=== PATIENT | female | born 1965 | race Caucasian/White ===

== ENCOUNTER 2020-04-02 17:57 | Emergency (ER) | payer MEDICARE, MEDICAID, SELFPAY ==
[2020-04-02 18:07] VITALS: BP 114/67; PULSE 73; RESP 16; TEMP 37.5; O2SAT 100
--- NOTE | 2020-04-02 18:12 | ED.EAR ---
HPI - Ear Problem General Chief complaint: Ear Stated complaint: ear pain Time Seen by Provider: 04/02/20 18:12 Source: patient Mode of arrival: ambulatory Limitations: no limitations History of Present Illness HPI Narrative: Madina Reyes is a 55 yo female with PMH of bipolar disorder, high cholesterol, HTN, depression, panic attacks, who comes to express care with buzzing and pain to R ear since Sunday, no drainage, no cold symptoms. Related Data Home Medications Medication Instructions Recorded Confirmed aripiprazole 2 mg tablet 2 mg PO DAILY 12/08/19 12/08/19 aspirin 81 mg tablet,delayed 81 mg PO DAILY 12/08/19 12/08/19 release multivit with 1 tablet PO DAILY 12/08/19 12/08/19 aexfmwsz-bnuj-IQ-lutein 8 mg iron-400 mcg-300 mcg tablet paroxetine HCl 20 mg tablet 20 mg PO QAM 12/08/19 12/08/19 spironolactone 100 mg tablet 100 mg PO DAILY 12/08/19 12/08/19 [facility] Hair, Skin, Nails Formula 04/02/20 [facility] Womans Ultra Jamie Multivitamin 04/02/20 ascorbic acid (vitamin C) [Vitamin 04/02/20 C] metformin 500 mg PO BID 04/02/20 04/02/20 Allergies Allergy/AdvReac Type Severity Reaction Status Date / Time ciprofloxacin Allergy Unknown Unknown Verified 10/15/19 18:03 Penicillins Allergy Unknown Unknown Verified 10/15/19 18:03 Review of Systems Review of Systems: Narrative: CONSTITUTIONAL: Denies fever, chills, sweats. EYES: Denies visual changes, redness, discharge. ENT: Denies rhinorrhea, congestion, sore throat, right otalgia and buzzing in ear. CARDIOVASCULAR: Denies chest pain, palpitations, edema. RESPIRATORY: Denies dyspnea, wheezing, cough GASTROINTESTINAL: Denies abdominal pain, nausea, vomiting, diarrhea. GENITOURINARY: Denies dysuria, hematuria, abnormal discharge SKIN: Denies rash or itching. NEUROLOGIC: Denies numbness, or focal weakness. PSYCHIATRIC: Denies anxiety or depression. [facility] Past Medical History Medical History Anxiety Arthritis Bipolar disorder Endometriosis Hyperlipidemia Joint pain Migraines Rectal cancer with radiation therapy and chemotherapy Surgical History Surgical History H/O total hysterectomy Hx of tubal ligation Family History Family History Grandparent Family history of premature coronary heart disease Mother Patient's mother is Family history of malignant neoplasm of breast in first degree relative Social History Social History Smoking status: Never smoker Second hand tobacco smoke exposure: No Alcohol intake: current Comments At time of signature, I agree with nursing past medical, surgical, social and family history. There is no relevant family history pertinent to the presenting complaint. Exam Narrative: Exam Narrative: GENERAL: This is a well-nourished, well-developed patient, in mild distress. HEAD: normocephalic, atraumatic. EYES:. Sclera clear/white. Vision is grossly intact. EARS: External ears normal, auditory canals clear on L and redness of canal on R. without drainage, R TMs bulging. Hearing grossly intact. NOSE: External nose normal without nasal discharge, nares without redness, no rhinorrhea. THROAT: Mucous membranes moist, posterior pharynx pink moist NECK: Neck supple, CARDIOVASCULAR: Regular rate and rhythm without murmurs, gallops, or rubs. RESPIRATORY: Clear to auscultation. Breath sounds equal bilaterally. No wheezes, rales, or rhonchi. GASTROINTESTINAL: Abdomen soft, SKIN: warm, intact with no suspicious lesions or rash, good texture and turgor. NEURO: awake, alert, and oriented to person, place and time. There were no obvious focal neurologic abnormalities. Steady gait EXTREMITIES: Normal range of motion. BACK: Nontender without deformity Course Course Emergency Course: St
== END 2020-04-02 18:36 | disposition home or self-care (01) ==
PROVIDERS: Emergency Provider Nurse Practitioner; PCP Family Medicine
DX: H66.001 Acute suppurative otitis media without spontaneous rupture of ear drum, right ear (principal); F31.9 Bipolar disorder, unspecified; E78.00 Pure hypercholesterolemia, unspecified; I10 Essential (primary) hypertension; Z79.82 Long term (current) use of aspirin; N80.9 Endometriosis, unspecified; E78.5 Hyperlipidemia, unspecified; Z85.048 Personal history of other malignant neoplasm of rectum, rectosigmoid junction, and anus; Z92.3 Personal history of irradiation; Z92.21 Personal history of antineoplastic chemotherapy
CPT/HCPCS: 99213; G0463

== ENCOUNTER 2021-04-20 10:51 | Outpatient (CLI) | payer MEDICARE, MEDICAID, SELFPAY ==
--- NOTE | ~2021-04-20 | MR_ITS ---
EXAMINATION: MR knee LT wo con DATE: 04/20/2021 11:48 INDICATION: Left knee pain. TECHNIQUE: Magnetic resonance imaging (MRI) of the left knee was performed without intravenous contra st. Sequences included axial PD-weighted FS FSE, coronal PD-weighted FSE and PD-weighted FS FSE, sagi ttal PD-weighted FSE, and sagittal T2-weighted FS FSE. COMPARISON: None. FINDINGS: Medial compartment: There is a complex tear involving posterior horn of medial meniscus. There is deep partial thickness cartilage loss of tibial condyle involving the central articular surface. There is full-thickness car tilage loss of femoral condyle involving the central articular surface and deep partial thickness car tilage loss involving the medial articular surface. Osteophytes are noted. Lateral compartment: There is a vertical tear involving body of lateral meniscus. There is shallow partial-thickness carti jim loss of tibial condyle. There is deep cartilage fissuring of tibial medial articular surface. Th ere is shallow partial-thickness cartilage loss involving the femoral condyle. There is deep partial thickness cartilage loss of femoral condyle involving the central articular surface. Osteophytes are noted. Patellofemoral compartment: There is full-thickness cartilage loss of patella involving the medial facet with mild subchondral ed suman-like marrow signal intensity. There is partial-thickness cartilage loss of patellar median ridge and lateral facet. There is full-thickness cartilage loss of medial trochlea with moderate subchondra l edema-like marrow signal intensity and small subchondral cysts. Osteophytes are noted. Ligaments and tendons: The anterior and posterior cruciate ligaments are normal. There are changes of prior sprains of media l collateral ligament and fibular collateral ligament characterized by thickening and increased signa l intensity proximally. There is mild patellar tendinopathy. Fluid: There is a moderate-sized knee joint effusion. There is an 8 mm loose body in medial patellofemoral j oint recess. There is a moderate-sized Ramon's cyst. There is mild superficial infrapatellar bursitis . IMPRESSION: 1. Severe chondrosis of medial and patellofemoral compartments and moderate chondrosis of lateral com partment. 2. Tears of medial and lateral menisci. 3. Moderate-sized knee joint effusion with loose body. 4. Moderate-sized Ramon's cyst. Reviewed, dictated and finalized at location A. IMPRESSION: 1. Severe chondrosis of medial and patellofemoral compartments and moderate cho ndrosis of lateral compartment. 2. Tears of medial and lateral menisci. 3. Moderate-sized knee joint effusion with loose body. 4. Moderate-sized Ramon's cyst.
== END 2021-04-20 10:52 | disposition home or self-care (01) ==
PROVIDERS: PCP Family Medicine; Visit Provider Family Medicine
DX: M71.21 Synovial cyst of popliteal space [Baker], right knee (principal); M25.462 Effusion, left knee; M23.42 Loose body in knee, left knee; S83.282A Other tear of lateral meniscus, current injury, left knee, initial encounter; S83.242A Other tear of medial meniscus, current injury, left knee, initial encounter; X58.XXXA Exposure to other specified factors, initial encounter
CPT/HCPCS: 73721

== ENCOUNTER → 2022-05-16 11:01 | Outpatient (CLI) | payer MEDICARE, MEDICAID, SELFPAY ==
--- NOTE | ~2022-05-16 | DEXA_ITS ---
Bone Density Report Name: TOM KAPLAN Age: 57 Sex: Female Ethnicity: White Date of : 1965 Indication: postmenopausal; screening for osteoporosis; height loss; hysterectomy; Referring Provider: Ruby Gomes Study: Bone densitometry was performed. Exam Date: May 16, 2022 Accession number: [id number] Bone Density: Region BMD T-score Z-score Classification AP Spine (L1-L4) 0.947 -0.9 0.4 Normal Femoral Neck (Left) 0.903 0.5 1.7 Normal Total Hip (Left) 1.005 0.5 1.4 Normal Femoral Neck (Right) 0.910 0.5 1.7 Normal Total Hip (Right) 1.007 0.5 1.4 Normal Total Hip Mean 1.006 0.5 1.4 Normal World Health Organization criteria for BMD impression classify patients as: Normal (T-score at or above -1.0), Osteopenia (T-score between -1.0 and -2.5), or Osteoporosis (T-score at or below -2.5). 10-year Fracture Risk: FRAX not reported because: All T-scores for Spine Total, Hip Total, Femoral Neck at or above -1.0 Clinical Information Provided by Patient: Has used the following medications: Vitamin D, MTV Has the following medical conditions: Hysterectomy, [place] 7050-8674 WITH RADIATION AND CHEMO Patient maximum height was 66.5 Menopause Age: 45 No regular weight bearing exercise Drinks caffeinated beverages Onset of menses at age 10 Number of children 0 Impression: The patient has normal bone mass. Discussion: BONE DENSITY IS ABOVE THE MINIMUM DESIRABLE LEVEL AT ALL SKELETAL SITES TESTED. This patient?s bone mineral density is above the minimum desirable level (T-score -1.0 or better) at all sites measured. The patient should follow a healthful lifestyle (good nutrition with adequate calcium and vitamin D, and appropriate weight-bearing exercise). Follow-Up: Consider repeating this study in 5 years or sooner if there is some new clinical indication. Reported by: FABIAN on 05/16/2022 11:39:00 AM. Reviewed, dictated and finalized at location AJared CARDENAS
== END ==
PROVIDERS: PCP Family Medicine; Visit Provider Family Medicine
DX: Z78.0 Asymptomatic menopausal state (principal)
CPT/HCPCS: 77080

== ENCOUNTER 2022-07-19 11:53 | Outpatient (CLI) | payer MEDICARE, MEDICAID, SELFPAY ==
--- NOTE | ~2022-07-19 | MM_ITS ---
EXAMINATION: MM screening radha BI w sarah HISTORY: Screening mammogram, family history of breast cancer in her mother. TECHNIQUE: Craniocaudal and mediolateral oblique 3-D tomosynthesis images were obtained and synthetic 2-D images were generated. CAD analysis was submitted and interpreted. COMPARISON: No prior mammogram is available for comparison at this institution. BREAST PARENCHYMAL COMPOSITION: There are scattered areas of fibroglandular density. FINDINGS: RIGHT BREAST: No suspicious mass, calcification, or architectural distortion are identified to sugges t malignancy. LEFT BREAST: There is focal asymmetry in the upper outer quadrant of the breast. IMPRESSION: 1. Focal asymmetry of the left breast which may represent the patient's baseline however no compariso n is currently available. 2. Comparison with prior mammograms is necessary. BI-RADS Category 0: Incomplete: Needs comparison with prior mammograms. Reviewed, dictated and finalized at location A. IMPRESSION: 1. Focal asymmetry of the left breast which may represent the patient's baselin e however no comparison is currently available. 2. Comparison with prior mammograms is necessary. BI-RADS Category 0: Incomplete: Needs comparison with prior mammograms.
== END 2022-07-19 11:54 | disposition home or self-care (01) ==
PROVIDERS: PCP Family Medicine; Visit Provider Family Medicine
DX: Z12.31 Encounter for screening mammogram for malignant neoplasm of breast (principal); R92.8 Other abnormal and inconclusive findings on diagnostic imaging of breast
CPT/HCPCS: 77063; 77067

== ENCOUNTER 2022-08-14 11:33 | Outpatient (CLI) | payer MEDICARE, MEDICAID, SELFPAY ==
--- NOTE | 2022-08-14 12:48 | ECG_ITS ---
Measurements Intervals [place] Rate: 77 P: 46 WY: 173 QRS: 7 QRSD: 86 T: 50 QT: 385 QTc: 436 Interpretive Statements SINUS RHYTHM CONSIDER ANTERIOR INFARCT, AGE INDETERMINATE INFERIOR INFARCT, AGE INDETERMINATE BASELINE ARTIFACT- I, II, III, AVR, AVL, AVF, V3-V6 ABNORMAL ECG NO PREVIOUS ECG AVAILABLE FOR COMPARISON Electronically Signed On 08-15-2022 6:18:49 CDT by Hua Salgado D.O.
[2022-08-14 13:24] LABS: Appearance Urine Slightly Cloudy (Clear); Bilirubin Urine 1+ (Negative); Blood Urine Trace-intact (Negative); Color Urine Yellow (Yellow); Glucose Urine UA Negative (Negative); Ketones Urine Trace mg/dL (Negative); Leukocyte Esterase Ur 1+ LEU/UL (Negative); Nitrate Urine Negative (Negative); Protein Urine 1+ mg/dL (Negative)
[2022-08-14 13:28] LABS: Urine Cotinine NEGATIVE
[2022-08-14 13:42] LABS: Bacteria Urine Trace /hpf; Mucus Urine Rare /lpf; Squamous Epithelial Cell Urine Occasional /hpf (Few); WBC Clumps Urine Present /HPF; WBC Urine 31-50 /hpf
[2022-08-14 13:54] LABS: Add Urine Microscopic? YES
[2022-08-14 13:57] LABS: INR 1.1; Prothrombin Time 13.3 Seconds (11.1-14.7)
[2022-08-14 13:59] LABS: Partial Thromboplastin Time 27.8 SECONDS (22.3-36.8)
== END 2022-08-14 11:34 | disposition home or self-care (01) ==
LOC: ANHSURGERY 11:39
PROVIDERS: PCP Family Medicine; Visit Provider Orthopaedic Surgery
DX: M17.12 Unilateral primary osteoarthritis, left knee (principal); Z01.818 Encounter for other preprocedural examination
CPT/HCPCS: 80307; 81001; 83036; 85610; 85730; 87081; 87086; 93005

== ENCOUNTER 2022-08-29 00:56 | Day surgery (SDC) | payer MEDICARE, MEDICAID, SELFPAY ==
--- NOTE | 2022-08-14 11:53 | PC.NURSE ---
Report to the Outpatient Waiting Room, entrance under the green pavilion located off [facility], at time _9:00AM on date __08/29/22 . Planned Procedure Time: __11:00AM . Time changes happen often and if your time is changed the preop area will call you the afternoon before. - You and your visitor will be asked to self-screen and do not enter if you have any COVID symptoms. - We encourage only one visitor and NO visitors under age 16 are allowed at this time. Your visitor will receive communication by the phone number that is given day of service. - The patient visitor is requested to social distance or may leave the building when not with patient due to restrictions. - A mask is required within the hospital. Patients may have clear liquids (water, carbonated beverages, clear teas, apple juice) until 3 hours prior to surgery with a maximum of 20 ounces. - No food from midnight until time of surgery Take the following medications with a SIP of water the morning of surgery: __ARIPIPRAZOLE, PAROXETINE & PROPRANOLOL Medications to discontinue per physician __HOLD ALL VITAMINS/SUPPLEMENTS 3 DAYS PREOP- LAST DOSE 08/25/22. HOLD ASPIRIN & IBUPROFEN PER DR URIAS Please no make-up, nail mohawk, hairspray, perfume, deodorant, or body powder the day of surgery. No jewelry (including any body piercings) or valuables the day of surgery, leave them at home. Please take a shower or bath the night before, or the morning of, surgery with an antibacterial soap. Wear comfortable, loose fitting clothing. Children are encouraged to wear pajamas. - Jewelry must be removed prior to entering the operating room. Rings and piercings that are not removed may be cut off. - The hospital will not accept responsibility for valuables. - Please leave all valuables, including medications, at home the day of surgery. If you are going home after surgery, a licensed regional company truck driver must drive you home. - NO public transportation without another adult. - We recommend that an adult stay with you for 24 hours following discharge. - We also recommend that you do not drive, make important decision, drink alcoholic beverages, or take any drugs that were not prescribed by your health care provider for at least 24 hours after your discharge time. Follow any additional instructions given to you from your surgeon. If you or anyone in your household have experienced Covid symptoms in the past week, please notify your surgeon or the nurse liaison at the phone number below for possible testing. Telephone instructions given to __PATIENT and asked if any additional questions and then verbalized understanding. Patient advised to call surgeon office or pre surgery nurse liaison [phone] if any additional questions.
[2022-08-14 12:06] VITALS: BP 129/87; PULSE 82; RESP 16; TEMP 36.2; O2SAT 97; BMI 34.0
--- NOTE | 2022-08-28 14:17 | WPDANESEPPF ---
Anes - Initial Pre Proc Eval Procedure: Operation Date: 08/29/22 11:00 Proposed Procedures p Left Total Knee Arthroplasty - Raj Pagan MD Date/Time: 08/28/22 14:17 Surgeon: Raj Pagan MD Pre Op Diagnosis: Lt Knee DJD Patient Data Age: 57 Gender: F Height: 1.6 m Weight: 87.2 kg Last Vital Signs Temp 36.2 C L 08/14/22 12:06 Pulse 82 08/14/22 12:06 Resp 16 08/14/22 12:06 BP 129/87 08/14/22 12:06 Pulse Ox 97 08/14/22 12:06 O2 Del Method Room Air 08/14/22 12:06 Allergies Allergy/AdvReac Type Severity Reaction Status Date / Time Penicillins Allergy Intermediate Hives Verified 08/29/22 09:26 acetaminophen [From Tylenol] AdvReac Mild Nausea and Verified 08/29/22 09:26 Vomiting Home Medications Medication Instructions Recorded Confirmed Type aripiprazole 2 mg tablet 2 mg PO DAILY 12/08/19 08/29/22 History aspirin 81 mg tablet,delayed 81 mg PO DAILY 12/08/19 08/29/22 History release (Adult Aspirin Regimen) spironolactone 100 mg tablet 100 mg PO DAILY 12/08/19 08/29/22 History paroxetine HCl 20 mg tablet 20 mg PO QAM #90 tabs 12/12/21 08/29/22 Rx propranolol 80 mg tablet 80 mg PO DAILY #90 tabs 03/01/22 08/29/22 Rx atorvastatin 20 mg tablet 20 mg PO QAM 08/14/22 08/29/22 History biotin 1,250 mcg-collagen 50 2 tablet PO DAILY 08/14/22 08/29/22 History mg-vit C 67.5 mg-vit E-herbal chew tablet (Alive Hair, Skin and Nails) cholecalciferol (vitamin D3) 50 100 mcg PO DAILY 08/14/22 08/29/22 History mcg (2,000 unit) capsule hydrochlorothiazide 25 mg tablet 25 mg PO QAM 08/14/22 08/29/22 History ibuprofen 200 mg capsule 400 mg PO Q6H PRN Pain 08/14/22 08/29/22 History gfrazawy-brx-kidtz 120 mcg-lutein 2 tablet PO DAILY 08/14/22 08/29/22 History 150 mcg-herb 37.5 mg chewable tablet (Alive Women's 50 Plus Gummy) Patient hx anesthesia problems: none Family hx anesthesia problems: none Results Review: All pre-operative results and documents have been reviewed as part of the pre-operative evaluation. [facility] Past Medical History Medical History Acne, unspecified Anxiety Arthritis Bipolar disorder Dyslipidemia Endometriosis Essential hypertension History of rectal cancer History of TIA (transient ischemic attack) Joint pain Left knee DJD Left knee pain Migraines Osteoarthritis Rectal cancer with radiation therapy and chemotherapy Sleep apnea in adult Surgical History Surgical History H/O total hysterectomy (2006) Hx of tubal ligation (~2004) Family History Family History Grandparent Family history of premature coronary heart disease Mother Patient's mother is Family history of malignant neoplasm of breast in first degree relative Social History Social History Smoking status: Never smoker Second hand tobacco smoke exposure: No Alcohol intake: current Substance use: never Substance use type: does not use Living arrangements: alone Gender identity (if verbalized by the patient): Female Spiritual care concerns: No Anes - Eval Final PreProcedure Day of Procedure 08/28/22 14:17 Patient weight: obese Heart: regular rate and rhythm Lungs: clear to auscultation and normal air movement Airway: Mallampati scale class II Neurological: alert and oriented Last oral intake: >/= 8 hours ASA classification: III Emergent: no Anesthetic plan: proceed Anesthesia type and monitoring: general LMA Results Review: All pre-operative results and documents have been reviewed as part of the pre-operative evaluation. Informed Consent: The patient's anesthetic plan and its attendant risks and benefits were discussed with the patient/family/POA. Questions were solicited and answers provi
--- NOTE | 2022-08-28 14:18 | WPDANESPNB ---
Anes - Peripheral Nerve Block Date/Time: 08/28/22 14:18 I have discussed with the patient/family/POA the placement of a peripheral nerve block for post-operative pain management, including associated risks, benefits, complications, and side effects. Alternative methods of post-operative analgesia were detailed. Questions were solicited and answers provided to the satisfaction of the patient/family/POA. Time-Out: A pre-procedural Time-Out was completed immediately before starting the procedure and confirmed: Patient Identification, Site, Procedure, Patient Position and the Availability of Requisite Equipment. Clinical Indications: Acute post-operative pain management requested by the operative surgeon. Nerve Block Insertion Note Anes-nerve block: adductor canal left Patient position: supine Skin prep: chlorhexidine Needle: 22 gauge, stimulating, insulated echogenic needle. Needle length: 80 mm Technique: ultrasound (in plane) Technique comment: in plane Injectate: bupivacaine 0.25% with epi 5 mcg/ml (20cc) Observations: tolerated well Complications: none Procedure start time:: 1120 Procedure end time:: 1124
[2022-08-29] VITALS (12 sets, daily range): BP systolic 105–136; BP diastolic 59–78; PULSE 63–90; RESP 12–18; TEMP 36.1–36.8; O2SAT 93–100
--- NOTE | ~2022-08-29 | XR_ITS ---
EXAMINATION: XR knee LT 2V DATE: 08/29/2022 14:16 INDICATION: Total left knee arthroplasty. Postop. TECHNIQUE: 2 views of left knee were obtained. COMPARISON: Left knee radiographs 05/25/2022 FINDINGS: There is a total left knee arthroplasty without patellar resurfacing in near-anatomic align ment. There has been resection of osteophytes of patella. There is gas in the knee joint and soft tis sues, consistent with recent surgery. Anterior skin ramona are noted. IMPRESSION: 1. Total left knee arthroplasty in near-anatomic alignment. Reviewed, dictated and finalized at location A. GER POOL
--- NOTE | 2022-08-29 07:18 | WPDHPUPDATE1 ---
History and Physical Update Update Date/Time: 08/29/22 07:18 History and Physical has been reviewed, including an updated exam of the patient. There are NO changes in the patient's condition. Risks, benefits, and alternatives have been discussed and questions answered. Patient agrees to proceed with procedure.
[2022-08-29] MEDS: LACTATED RINGERS 1,000 ML 30 ML IV CONT ×2 (09:41→14:07)
--- NOTE | 2022-08-29 09:54 | SUR.PREOP ---
pt states adverse reaction to tylenol ,vomitting. dr jansen aware and did not order tylenol po per order set.
[2022-08-29] MEDS: TRANEXAMIC ACID 1,000MG/ISO100 1,000 MG/100 ML BAG 200 MG IVPB (10:50)
[2022-08-29] MEDS: ceFAZolin 2 GM/D5W 50 ML 2 GM/50 ML BAG IVPB ×2 (11:30→18:20)
[2022-08-29] MEDS: TRANEXAMIC ACID 1,000 MG/10 ML AMPUL 1000 MG IV PUSH (13:18)
--- NOTE | 2022-08-29 14:20 | W.PM.PROC2 ---
Procedure Note - Detailed Date of Procedure 08/29/22 Pre-op Diagnosis Lt Knee DJD Post-op Diagnosis Same Procedure Performed L TKA Surgeon Raj Pagan MD Anesthesia General Description of Procedure THE LEFT KNEE WAS PREPPED AND DRAPED IN THE STERILE FASHION. A MIDLINE SKIN INCISION WAS MADE. A MEDIAL PARAPATELLAR ARTHROTOMY WAS MADE. THE PATELLA WAS EVERTED. THERE WAS TRICOMPARTMENT DJD. THERE WAS MINIMAL PATELLA DJD. AN INTRAMEDULLARY NIELS WAS PLACED IN THE FEMUR. A DISTAL FEMORAL CUT WAS MADE IN 5 DEGREES OF VALGUS REMOVING APPROXIMATELY 11 MM OF BONE FROM THE DISTAL FEMUR. THE FEMUR WAS SIZED TO 65. A 65 FEMORAL CUTTING BLOCK WAS PLACED IN 3 DEGREES OF EXTERNAL ROTATION AND IN ALIGNMENT WITH RICO'S LINE AND THE TRANSEPICONDYLAR AXIS. ANTERIOR POSTERIOR AND CHAMFER CUTS WERE MADE. THE CUTS WERE EXCELLENT. NEXT AN INTRAMEDULLARY CUTTING GUIDE WAS PLACED IN THE TIBIA. A TRANS TIBIAL CUT WAS MADE ALONG THE LONG AXIS OF THE TIBIA. APPROXIMATELY 10 MM OF BONE WAS REMOVED FROM THE HIGH SIDE OF THE TIBIA. THE TIBIA WAS THEN PLANED TO A SMOOTH SURFACE. POSTERIOR FEMORAL OSTEOPHYTES WERE REMOVED FROM THE FEMORAL CONDYLES. A 75 TIBIAL TRIAL WAS PLACED IN ALIGNMENT WITH THE 1/3 MEDIAL ASPECT OF THE TIBIAL TUBERCLE. THEN A 65 FEMORAL TRIAL COMPONENT WAS PLACED. BOTH HAD EXCELLENT FITS. EVENTUALLY A 10 MM CR POLYETHYLENE TRIAL COMPONENT WAS PLACED. THE KNEE WAS TAKEN THROUGH A RANGE OF MOTION. THE KNEE CAME OUT TO FULL EXTENSION. THERE WAS NO ABNORMAL TILT TO THE PATELLA. THERE WAS GOOD A/P AND VARUS/VALGUS STABILITY. THERE WAS NO EXCESSIVE ROLL BACK WITH FLEXION. THE TRIAL COMPONENTS WERE REMOVED. THEN A 65 FEMORAL COMPONENT AND 75 TIBIAL COMPONENT WITH A 10 CR POLYETHYLENE COMPONENT WERE CEMENTED INTO PLACE. ONCE THE CEMENT WAS HARD THE KNEE WAS TAKEN THROUGH A ROM AGAIN AND FOUND TO BE STABLE WITH NO PATELLA TILT NO EXCESSIVE ROLL BACK WITH FLEXION AND GOOD STABILITY WITH COMPLETE AND FULL EXTENSION. THE KNEE WAS IRRIGATED WITH STERILE BETADINE AND WATER FOR ABOUT 3 MINUTES. THE BLEEDERS WERE CAUTERIZED. THE ARTHROTOMY WAS REPAIRED WITH NUMBER 1 VICRYL. THE SUB CUTANEOUS LAYER WITH 2-0 VICRYL AND THE SKIN WITH ISIDRO. THE WOUND WAS WASHED AND A STERILE DRESSING WAS APPLIED. PATIENT WAS EXTUBATED. Estimated Blood Loss -150.0 Pathology None sent Complications No immediate complications Condition Stable Disposition PACU
--- NOTE | 2022-08-29 15:47 | ADMGEN ---
This patient, Madina Davey, was admitted to 2 Medical Room 251-. Patient/family oriented to hospital policies and general routines including ID bracelet, bed and alarms, visiting hours, pain management, procedures, bathroom and other care routines, personal items, smoking policy, room service/diet, and visiting hours. Information on how to activate the Rapid Response Team has been discussed. Patient/Family are encouraged to report perceived risks to care and to ask questions if they do not understand what they are told or what they should do.
[2022-08-29] MEDS: KETOROLAC 15 MG/ML VIAL (*BKC) IV PUSH (17:12)
[2022-08-29] MEDS: SENNA/DOCUSATE SODIUM TABLET 2 TAB PO (17:12)
[2022-08-29] MEDS: SODIUM CHLORIDE 0.9% IV 1,000 ML 125 ML IV CONT (17:12)
[2022-08-29] MEDS: FAMOTIDINE 20 MG TABLET PO (22:17)
[2022-08-29] MEDS: ASPIRIN 325 MG ENTERIC TABLET PO (22:17)
[2022-08-30] MEDS: KETOROLAC 15 MG/ML VIAL (*BKC) IV PUSH ×3 (00:10→11:20)
[2022-08-30] MEDS: ceFAZolin 2 GM/D5W 50 ML 2 GM/50 ML BAG IVPB ×2 (03:32→11:19)
[2022-08-30 05:09] VITALS: BP 110/55; PULSE 66; RESP 16; TEMP 36.4; O2SAT 100
[2022-08-30 05:25] LABS: Anion Gap 11 mmol/L (8-16); Blood Urea Nitrogen 14 mg/dL (7-17); Calcium 8.2 mg/dL (8.4-10.2); Carbon Dioxide 23 mmol/L (22-30); Chloride 105 mmol/L (98-107); Estimated CRCL calculation 62 ml/min; Estimated Glomerular Filt Rate > 60; Glucose 119 mg/dL (65-110); Potassium 4.4 mmol/L (3.4-5.0); Sodium 139 mmol/L (137-145)
[2022-08-30 05:31] LABS: Basophils Percent Auto 0.1 % (0.2-1.2); Hematocrit 31.2 % (37.0-47.0); Hemoglobin 9.9 g/dL (12.0-15.0); Immature Granulocyte Absolute 0.04 K/mm3 (0.00-0.031); Immature Granulocyte Percent A 0.3 % (0-0.5); Lymphocytes Absolute Auto 1.37 K/mm3 (0.9-3.2); Lymphocytes Percent Auto 11.7 % (18.3-44.2); Mean Corpuscular HGB Conc 31.7 g/dl (32-36); Mean Corpuscular Hemoglobin 27.8 pg (26-34); Mean Corpuscular Volume 87.6 fl (80-100); Mean Platelet Volume 11.4 fl (7.4-10.4); Monocytes Absolute Auto 0.7 K/mm3 (0.1-0.6); Monocytes Percent Auto 5.6 % (2.6-8.5); Neutrophils Absolute Auto 9.6 K/mm3 (1.3-6.7); Neutrophils Percent Auto 82.3 % (45.5-73.1); Platelet Count Result 318 k/mm3 (150-375); Red Blood Count 3.56 M/mm3 (4.2-5.4); Red Cell Distribution Width 14.2 % (11.5-14.5); White Blood Count 11.7 K/mm3 (4.5-10.0)
[2022-08-30] MEDS: polyethylene glycoL 3350 17 GM POWD.PACK PO (08:57)
[2022-08-30] MEDS: SPIRONOLACTONE 50 MG TABLET 100 MG PO (08:57)
[2022-08-30 08:58] VITALS: PULSE 88
[2022-08-30] MEDS: PARoxetine 20 MG TABLET PO (08:58)
[2022-08-30] MEDS: PROPRANOLOL HCL 40 MG TABLET 80 MG PO (08:58)
[2022-08-30] MEDS: CHOLECALCIFEROL 1,000 UNITS TABLET 4000 UNITS PO (09:01)
[2022-08-30] MEDS: FAMOTIDINE 20 MG TABLET PO (09:01)
[2022-08-30] MEDS: ASPIRIN 325 MG ENTERIC TABLET PO (09:01)
[2022-08-30] MEDS: ARIPiprazole 2 MG TABLET PO (09:01)
[2022-08-30] MEDS: ATORVASTATIN 20 MG TABLET PO (09:01)
[2022-08-30] MEDS: hydroCHLOROthiazide 25 MG TABLET PO (09:01)
[2022-08-30] MEDS: SENNA/DOCUSATE SODIUM TABLET 2 TAB PO (09:02)
[2022-08-30] MEDS: oxyCODONE/ACETAMINOPHEN (*CRX) 5-325 MG TABLET 1 TABLET PO (09:05)
[2022-08-30 12:50] VITALS: BP 109/66; PULSE 72; RESP 16; TEMP 36.9; O2SAT 100
--- NOTE | 2022-08-30 12:53 | P.PNAN_ITS ---
Anes - Prog Note Post-Op Date/Time: 08/30/22 12:53 Cardiovascular status: normal Respiratory status: normal Airway patency: baseline Mental status: baseline Post-Op hydration status: normal Vital Signs: Last Vital Signs Temp 36.4 C 08/30/22 05:09 Pulse 88 08/30/22 08:58 Resp 16 08/30/22 05:09 BP 110/55 L 08/30/22 05:09 Pulse Ox 100 08/30/22 05:09 O2 Del Method Room Air 08/30/22 09:00 O2 Flow Rate 2 08/29/22 15:48 Pain Score (VAS): 2 I/O: Intake & Output 08/29/22 08/30/22 08/30/22 23:59 07:59 15:59 Intake Total 290 450 200 Balance 290 450 200 Laboratory Tests 08/30/22 04:47 08/30/22 04:47 08/30/22 08/30/22 04:47 04:47 WBC 11.7 H RBC 3.56 L Hgb 9.9 L Hct 31.2 L MCV 87.6 MCH 27.8 MCHC 31.7 L RDW 14.2 Plt Count 318 MPV 11.4 H Immature Gran % (Auto) 0.3 Neut % (Auto) 82.3 H Lymph % (Auto) 11.7 L [place] % (Auto) 5.6 Eos % (Auto) 0.0 Baso % (Auto) 0.1 L Lymph # (Auto) 1.37 [place] # (Auto) 0.7 H Eos # (Auto) 0.0 Baso # (Auto) 0.0 Abs Immat Gran (auto) 0.04 H Absolute Neuts (auto) 9.6 H Absolute Nucleated RBC 0.0 Nucleated RBC % 0.0 Sodium 139 Potassium 4.4 Chloride 105 Carbon Dioxide 23 Anion Gap 11 BUN 14 Creatinine 0.90 Estim Creat Clear Calc 62 Estimated GFR > 60 Glucose 119 H Calcium 8.2 L Post-procedural complaints: none Patient Feedback: Patient satisfied with anesthetic care.
--- NOTE | 2022-08-30 13:18 | PC.NURSE ---
On 08/30/22, the student, [Emily Wheeler], provided care and completed [facility] documentation on this patient. I have reviewed the student's documentation and agree with the findings.
[2022-08-30 14:00] VITALS: BP 109/60; PULSE 72; RESP 16; TEMP 36.8; O2SAT 98
--- NOTE | 2022-08-30 15:59 | PM.PNORT ---
Progress Note: A&P Assessment and Plan (1) Left knee DJD: Qualifiers: Osteoarthritis type: primary Qualified Code(s): M17.12 - Unilateral primary osteoarthritis, left knee Code(s): M17.12 - Unilateral primary osteoarthritis, left knee Status: Acute Assessment and Plan: POD 1 LEFT TKA DOING WELL. OK TO DC HOME SHE WILL F/U IN 3 WEEKS. Subjective Subjective Date/Time Seen: 08/30/22 15:59 POD 1 DOING WELL. NO CALF PAIN Exam Extrem: Other: VSS AFEBRILE DRESSING DRY NV INTACT NEG HOMANS SIGN, CALF SOFT NON TENDER Objective Data Vital Signs Vital Signs: Vital Signs - 24 hr 08/29/22 16:20 08/29/22 17:20 08/29/22 19:23 Temperature 36.7 C 36.7 C 36.4 C Pulse Rate 75 69 79 Respiratory Rate 16 18 16 Blood Pressure 110/78 126/72 107/66 Pulse Oximetry 99 98 96 Oxygen Delivery 08/30/22 05:09 08/30/22 07:54 08/30/22 08:58 Temperature 36.4 C Pulse Rate 66 88 Respiratory Rate 16 Blood Pressure 110/55 L Pulse Oximetry 100 Oxygen Delivery Room Air 08/30/22 09:00 08/30/22 12:50 Temperature 36.9 C Pulse Rate 72 Respiratory Rate 16 Blood Pressure 109/66 Pulse Oximetry 100 Oxygen Delivery Room Air Intake/Output Intake/Output: Intake & Output 08/27/22 08/28/22 08/29/22 08/30/22 23:59 23:59 23:59 23:59 Intake Total 1690 872 Balance 1690 872 Meds/Results Medications: Active Medications Generic Name Dose Route Start Last Admin Trade Name Freq PRN Reason Stop Dose Admin Acetaminophen 1,000 mg 08/29/22 15:24 Acetaminophen 500 Mg Tablet PO Q6H PRN Pain Rated 1-3 Aripiprazole 2 mg 08/30/22 09:00 08/30/22 09:01 Aripiprazole 2 Mg Tablet PO 2 mg DAILY XIN Administration Aspirin 325 mg 08/29/22 21:00 08/30/22 09:01 Aspirin 325 Mg Enteric Tablet PO 325 mg Q12HR XIN Administration Atorvastatin Calcium 20 mg 08/30/22 09:00 08/30/22 09:01 Atorvastatin 20 Mg Tablet PO 20 mg QAM XIN Administration Diazepam 5 mg 08/29/22 15:24 Diazepam (*Crx) 5 Mg Tablet PO Q8H PRN Spasms Diphenhydramine HCl 25 mg 08/29/22 15:24 Diphenhydramine Hcl Inj 50 Mg/Ml Vial IV PUSH Q6H PRN Itching Famotidine 20 mg 08/29/22 21:00 08/30/22 09:01 Famotidine 20 Mg Tablet PO 20 mg Q12HR XIN Administration Hydrochlorothiazide 25 mg 08/30/22 09:00 08/30/22 09:01 Hydrochlorothiazide 25 Mg Tablet PO 25 mg QAM XIN Administration Ketorolac Tromethamine 15 mg 08/29/22 18:00 08/30/22 11:20 Ketorolac 15 Mg/Ml Vial (*Bkc) IV PUSH 08/30/22 18:01 15 mg Q6HR XIN Administration Naloxone HCl 0.1 mg 08/29/22 15:24 Naloxone Hcl 0.4 Mg/Ml Vial IV PUSH Q2M PRN Opiate Reversal Oxycodone/Acetaminophen 1 tablet 08/29/22 15:24 08/30/22 09:05 Oxycodone/Acetaminophen (*Crx) 5-325 Mg Tablet PO 1 tablet Q4H PRN Administration Pain Rated 4-6 Oxycodone/Acetaminophen 2 tablet 08/29/22 15:24 Oxycodone/Acetaminophen (*Crx) 5-325 Mg Tablet PO Q6H PRN Pain Rated 7-10 Paroxetine HCl 20 mg 08/30/22 09:00 08/30/22 08:58 Paroxetine 20 Mg Tablet PO 20 mg QAM XIN Administration Polyethylene Glycol 17 gm 08/30/22 09:00 08/30/22 08:57 Polyethylene Glycol 3350 17 Gm Powd.Pack PO 17 gm QAM XIN Administration Propranolol HCl 80 mg 08/30/22 09:00 08/30/22 08:58 Propranolol Hcl 40 Mg Tablet PO 09/29/22 08:59 80 mg DAILY XIN Administration Senna/Docusate Sodium 2 tab 08/29/22 17:00 08/30/22 09:02 Senna/Docusate Sodium Tablet PO 2 tab BID XIN Administration Spironolactone 100 mg 08/30/22 09:00 08/30/22 08:57 Spironolactone 50 Mg Tablet PO 100 mg DAILY XIN Administration Vitamin D 4,000 units 08/30/22 09:00 08/30/22 09:01 Cholecalciferol 1,000 Units Tablet PO 4,000 units DAILY XIN Administration Radiology Results: ITS Impressions Knee X-Ray 08/29/22 14:28 IMPRESSION: 1. Total le
--- NOTE | 2022-08-30 16:02 | PM.DS ---
DS: Admitting Diagnosis Discharge Date 08/30/22 Admitting Diagnosis L KNEE DJD DS: Discharge Diagnosis Discharge Diagnosis (1) Left knee DJD: Qualifiers: Osteoarthritis type: primary Qualified Code(s): M17.12 - Unilateral primary osteoarthritis, left knee Code(s): M17.12 - Unilateral primary osteoarthritis, left knee Status: Acute DS: Summary Hospital Course Reason for hospitalization: PATIENT WAS ADMITTED S/P TOTAL KNEE ARTHROPLASTY FOR POSTOPERATIVE MEDICAL MANAGEMENT, PAIN CONTROL AND MOBILIZATION WITH PHYSICAL AND OCCUPATIONAL THERAPY. THE PATIENT PROGRESSED WELL WITH PT/OT. LABS AND VITALS REMAINED STABLE AND PAIN WELL CONTROLLED. THE PATIENT HAS BEEN CLEARED TO BE DISCHARGED HOME. FOLLOW UP APPOINTMENT SCHEDULED. DISCHARGE INSTRUCTIONS DISCUSSED AT LENGTH WITH THE PATIENT. MEDICATIONS REVIEWED. Hospital Course: PATIENT WAS ADMITTED S/P TOTAL KNEE ARTHROPLASTY FOR POSTOPERATIVE MEDICAL MANAGEMENT, PAIN CONTROL AND MOBILIZATION WITH PHYSICAL AND OCCUPATIONAL THERAPY. THE PATIENT PROGRESSED WELL WITH PT/OT. LABS AND VITALS REMAINED STABLE AND PAIN WELL CONTROLLED. THE PATIENT HAS BEEN CLEARED TO BE DISCHARGED HOME. FOLLOW UP APPOINTMENT SCHEDULED. DISCHARGE INSTRUCTIONS DISCUSSED AT LENGTH WITH THE PATIENT. MEDICATIONS REVIEWED. Status at Discharge Cognitive/behavioral status at discharge: STABLE Time Spent with Patient Time attestation: Total time spent providing and/or coordinating discharge services: DS: Data Data Completed and Pending Labs on day of discharge: Labs from last 24 hours 08/30/22 08/30/22 04:47 04:47 WBC 11.7 H RBC 3.56 L Hgb 9.9 L Hct 31.2 L MCV 87.6 MCH 27.8 MCHC 31.7 L RDW 14.2 Plt Count 318 MPV 11.4 H Immature Gran % (Auto) 0.3 Neut % (Auto) 82.3 H Lymph % (Auto) 11.7 L [place] % (Auto) 5.6 Eos % (Auto) 0.0 Baso % (Auto) 0.1 L Lymph # (Auto) 1.37 [place] # (Auto) 0.7 H Eos # (Auto) 0.0 Baso # (Auto) 0.0 Abs Immat Gran (auto) 0.04 H Absolute Neuts (auto) 9.6 H Absolute Nucleated RBC 0.0 Nucleated RBC % 0.0 Sodium 139 Potassium 4.4 Chloride 105 Carbon Dioxide 23 Anion Gap 11 BUN 14 Creatinine 0.90 Estim Creat Clear Calc 62 Estimated GFR > 60 Glucose 119 H Calcium 8.2 L Procedures/Treatments: L TKA Discharge Plan Discharge Patient Disposition: Home Health Service Discharge Instructions: Per Care Coordination. Patient to have [facility] for RN/PT/OT eval and treat. #[phone]. They will contact patient to schedule first visit. Patient Instructions: Antibiotic Form Stand Alone Forms: General Discharge Information Follow-up/Referrals: Raj Pagan MD [Physician] - 3 Weeks Discharge Medications: New hydrocodone-acetaminophen 5-325 mg tablet 1 tablet PO Q6H PRN (Reason: pain) Qty: 30 0RF Continued aspirin [Adult Aspirin Regimen] 81 mg tablet,delayed release (DR/EC) 81 mg PO DAILY spironolactone 100 mg tablet 100 mg PO DAILY aripiprazole 2 mg tablet 2 mg PO DAILY paroxetine HCl 20 mg tablet 20 mg PO QAM Qty: 90 0RF Alive Women's 50 Plus Gummy 120 mcg-150 mcg -37.5 mg Tablet,Chewable 2 tablet PO DAILY Alive Hair, Skin and Nails 1,250 mcg-50 mg -67.5 mg-15 mg Tablet,Chewable 2 tablet PO DAILY atorvastatin 20 mg tablet 20 mg PO QAM Rx Instructions: TAKE 1 TABLET BY MOUTH EVERY DAY hydrochlorothiazide 25 mg tablet 25 mg PO QAM Rx Instructions: TAKE 1 TABLET BY MOUTH EVERY DAY cholecalciferol (vitamin D3) 50 mcg (2,000 unit) capsule 100 mcg PO DAILY ibuprofen 200 mg Capsule 400 mg PO Q6H PRN (Reason: Pain) propranolol 80 mg tablet 80 mg PO DAILY Qty: 90 1RF
== END 2022-08-30 17:15 | disposition home health service (06) ==
LOC: ANHSURGERY 09:04 → ANH2MED 15:29
PROVIDERS: PCP Family Medicine; Visit Provider Orthopaedic Surgery
PROC: (CPT 27447; principal; 2022-08-29 11:00)
DX: M17.12 Unilateral primary osteoarthritis, left knee (principal); G89.18 Other acute postprocedural pain; I10 Essential (primary) hypertension; G47.30 Sleep apnea, unspecified; F41.9 Anxiety disorder, unspecified; F31.9 Bipolar disorder, unspecified; E78.5 Hyperlipidemia, unspecified; Z86.73 Personal history of transient ischemic attack (TIA), and cerebral infarction without residual deficits; Z85.048 Personal history of other malignant neoplasm of rectum, rectosigmoid junction, and anus; Z79.82 Long term (current) use of aspirin; E66.9 Obesity, unspecified; Z68.33 Body mass index [BMI] 33.0-33.9, adult
CPT/HCPCS: 27447; 64447; 36415; 73560; 80048; 80307; 81001; 83036; 85025; 85610; 85730; 86850; 86900; 86901; 87081; 87086; 93005; 97110; 97116; 97161; 97165; A9270; C1713; C1776; J0171; J0690; J1100; J1170; J1885; J2250; J2270; J2405; J2704; J2795; J3010; J7030; J7120

== ENCOUNTER 2023-01-09 10:10 | Outpatient (CLI) | payer MEDICARE, MEDICAID, SELFPAY ==
[2023-01-09 19:08] LABS: Basophils Percent Auto 0.5 % (0.2-1.2); Eosinophils Absolute Auto 0.1 K/mm3 (0-0.3); Eosinophils Percent Auto 0.7 % (0-4.4); Hematocrit 42.6 % (37.0-47.0); Hemoglobin 13.2 g/dL (12.0-15.0); Immature Granulocyte Absolute 0.03 K/mm3 (0.00-0.031); Immature Granulocyte Percent A 0.4 % (0-0.5); Lymphocytes Absolute Auto 2.33 K/mm3 (0.9-3.2); Lymphocytes Percent Auto 30.4 % (18.3-44.2); Mean Corpuscular Hemoglobin 26.3 pg (26-34); Mean Platelet Volume 11.6 fl (7.4-10.4); Monocytes Absolute Auto 0.4 K/mm3 (0.1-0.6); Monocytes Percent Auto 5.4 % (2.6-8.5); Neutrophils Absolute Auto 4.8 K/mm3 (1.3-6.7); Neutrophils Percent Auto 62.6 % (45.5-73.1); Platelet Count Result 420 k/mm3 (150-375); Red Blood Count 5.01 M/mm3 (4.2-5.4); Red Cell Distribution Width 16.8 % (11.5-14.5); Vitamin D 25 Hydroxy 47.2 ng/mL; White Blood Count 7.7 K/mm3 (4.5-10.0)
[2023-01-09 19:15] LABS: Alanine Aminotransferase 28 U/L (6-35); Albumin Level 4.6 g/dL (3.5-5.1); Alkaline Phosphatase 179 U/L (38-126); Anion Gap 11 mmol/L (8-16); Aspartate Amino Transferase 30 U/L (14-36); Bilirubin,Total 0.7 mg/dL (0.2-1.3); Blood Urea Nitrogen 15 mg/dL (7-17); Calcium 9.6 mg/dL (8.4-10.2); Carbon Dioxide 29 mmol/L (22-30); Chloride 97 mmol/L (98-107); Cholesterol 185 mg/dL (0-200); Estimated Glomerular Filt Rate > 60; Glucose 101 mg/dL (65-110); HDL Direct 37 mg/dL; Potassium 4.3 mmol/L (3.4-5.0); Sodium 137 mmol/L (137-145); Triglycerides 237 mg/dL (<150)
[2023-01-09 19:33] LABS: LDL Cholesterol Direct 88 mg/dL
[2023-01-09 21:20] LABS: Hemoglobin A1C 6.1 % (<5.7)
== END 2023-01-09 10:11 | disposition home or self-care (01) ==
LOC: ANHGOSHLAB 10:12
PROVIDERS: PCP Family Medicine; Visit Provider Nurse Practitioner
DX: E78.5 Hyperlipidemia, unspecified (principal); I10 Essential (primary) hypertension; R73.03 Prediabetes; E55.9 Vitamin D deficiency, unspecified
CPT/HCPCS: 36415; 80053; 80061; 82306; 83036; 85025

== ENCOUNTER 2023-02-12 10:09 | Outpatient (CLI) | payer MEDICARE, MEDICAID, SELFPAY ==
[2023-02-12 13:47] LABS: Basophils Percent Auto 0.4 % (0.2-1.2); Eosinophils Absolute Auto 0.1 K/mm3 (0-0.3); Eosinophils Percent Auto 0.8 % (0-4.4); Hematocrit 40.6 % (37.0-47.0); Hemoglobin 12.9 g/dL (12.0-15.0); Immature Granulocyte Absolute 0.02 K/mm3 (0.00-0.031); Immature Granulocyte Percent A 0.2 % (0-0.5); Lymphocytes Percent Auto 27.9 % (18.3-44.2); Mean Corpuscular HGB Conc 31.8 g/dl (32-36); Mean Corpuscular Hemoglobin 26.4 pg (26-34); Monocytes Absolute Auto 0.5 K/mm3 (0.1-0.6); Monocytes Percent Auto 5.8 % (2.6-8.5); Neutrophils Absolute Auto 5.4 K/mm3 (1.3-6.7); Neutrophils Percent Auto 64.9 % (45.5-73.1); Platelet Count Result 405 k/mm3 (150-375); Red Blood Count 4.89 M/mm3 (4.2-5.4); Red Cell Distribution Width 15.5 % (11.5-14.5); White Blood Count 8.3 K/mm3 (4.5-10.0)
== END 2023-02-12 10:10 | disposition home or self-care (01) ==
LOC: ANHGOSHLAB 10:11
PROVIDERS: PCP Family Medicine; Visit Provider Nurse Practitioner
DX: R79.89 Other specified abnormal findings of blood chemistry (principal)
CPT/HCPCS: 36415; 85025

== ENCOUNTER 2023-10-30 12:21 | Outpatient (CLI) | payer MEDICARE, MEDICAID, SELFPAY ==
--- NOTE | ~2023-10-30 | MM_ITS ---
EXAMINATION: MM screening [facility] BI w sarah HISTORY: Screening TECHNIQUE: Craniocaudal and mediolateral oblique 3-D tomosynthesis images were obtained and synthetic 2-D images were generated. CAD analysis was submitted and interpreted. COMPARISON: Comparison to multiple prior studies sequentially, with oldest reviewed study dated 02/2019. BREAST PARENCHYMAL COMPOSITION: There are scattered areas of fibroglandular density. FINDINGS: There is no evidence of suspicious mass, calcification, or architectural distortion to sugg est malignancy in either breast. There has been no suspicious interval change. IMPRESSION: 1. No mammographic evidence of malignancy. 2. Recommend routine screening mammography in one year. BI-RADS Category 1: Negative Reviewed, dictated and finalized at location A. 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
== END 2023-10-30 12:22 | disposition home or self-care (01) ==
PROVIDERS: PCP Family Medicine; Visit Provider Nurse Practitioner Family
DX: Z12.31 Encounter for screening mammogram for malignant neoplasm of breast (principal)
CPT/HCPCS: 77063; 77067

== ENCOUNTER 2023-11-15 10:13 | Outpatient (CLI) | payer MEDICARE, MEDICAID, SELFPAY ==
--- NOTE | 2023-11-15 10:45 | ECG_ITS ---
Measurements Intervals [place] Rate: 65 P: 28 VT: 163 QRS: 3 QRSD: 93 T: 10 QT: 402 QTc: 418 Interpretive Statements SINUS RHYTHM COMPARED TO ECG 08/14/2022 13:09:29 NO SIGNIFICANT CHANGES Electronically Signed On 11-15-2023 14:05:50 GENERAL TELLER by Nigel Ho M.D.
[2023-11-15 10:54] LABS: Basophils Percent Auto 0.4 % (0.2-1.2); Eosinophils Absolute Auto 0.1 K/mm3 (0-0.3); Eosinophils Percent Auto 0.7 % (0-4.4); Hematocrit 41.3 % (37.0-47.0); Hemoglobin 13.4 g/dL (12.0-15.0); Immature Granulocyte Absolute 0.02 K/mm3 (0.00-0.031); Immature Granulocyte Percent A 0.2 % (0-0.5); Lymphocytes Absolute Auto 2.34 K/mm3 (0.9-3.2); Mean Corpuscular HGB Conc 32.4 g/dl (32-36); Mean Corpuscular Hemoglobin 28.2 pg (26-34); Mean Corpuscular Volume 86.8 fl (80-100); Mean Platelet Volume 10.8 fl (7.4-10.4); Monocytes Absolute Auto 0.4 K/mm3 (0.1-0.6); Monocytes Percent Auto 4.8 % (2.6-8.5); Neutrophils Absolute Auto 5.2 K/mm3 (1.3-6.7); Neutrophils Percent Auto 64.9 % (45.5-73.1); Platelet Count Result 363 k/mm3 (150-375); Red Blood Count 4.76 M/mm3 (4.2-5.4); Red Cell Distribution Width 13.8 % (11.5-14.5); White Blood Count 8.1 K/mm3 (4.5-10.0)
[2023-11-15 11:03] LABS: Anion Gap 10 mmol/L (8-16); Blood Urea Nitrogen 19 mg/dL (7-17); Calcium 9.7 mg/dL (8.4-10.2); Carbon Dioxide 29 mmol/L (22-30); Chloride 100 mmol/L (98-107); Estimated Glomerular Filt Rate > 60; Glucose 142 mg/dL (65-110); Potassium 4.2 mmol/L (3.4-5.0); Sodium 139 mmol/L (137-145)
[2023-11-15 11:44] LABS: Appearance Urine Clear (Clear); Protein Urine 1+ mg/dL (Negative); Specific Grav Ur 1.025 (1.001-1.035)
[2023-11-15 11:45] LABS: Add Urine Microscopic? YES; Bilirubin Urine Negative (Negative); Blood Urine Trace-intact (Negative); Color Urine Yellow (Yellow); Glucose Urine UA Negative (Negative); Ketones Urine Negative (Negative); Leukocyte Esterase Ur 2+ LEU/UL (Negative); Nitrate Urine Negative (Negative); Urobilinogen Urine 0.2 mg/dL (<2.0)
[2023-11-15 12:00] LABS: Squamous Epithelial Cell Urine Few /hpf (Few)
[2023-11-15 12:02] LABS: Bacteria Urine 1+ /hpf
== END 2023-11-15 10:14 | disposition home or self-care (01) ==
PROVIDERS: PCP Family Medicine; Visit Provider Orthopaedic Surgery
DX: M17.11 Unilateral primary osteoarthritis, right knee (principal); R73.03 Prediabetes; I10 Essential (primary) hypertension; R53.83 Other fatigue
CPT/HCPCS: 36415; 80048; 81001; 85025; 87086; 93005

== ENCOUNTER 2024-01-03 10:30 | Outpatient (CLI) | payer MEDICARE, MEDICAID, SELFPAY ==
[2024-01-03 12:12] LABS: Basophils Percent Auto 0.5 % (0.2-1.2); Eosinophils Absolute Auto 0.1 K/mm3 (0-0.3); Eosinophils Percent Auto 0.9 % (0-4.4); Hematocrit 43.2 % (37.0-47.0); Immature Granulocyte Absolute 0.03 K/mm3 (0.00-0.031); Immature Granulocyte Percent A 0.3 % (0-0.5); Lymphocytes Absolute Auto 2.87 K/mm3 (0.9-3.2); Lymphocytes Percent Auto 32.7 % (18.3-44.2); Mean Corpuscular HGB Conc 32.4 g/dl (32-36); Mean Corpuscular Hemoglobin 28.3 pg (26-34); Mean Corpuscular Volume 87.3 fl (80-100); Mean Platelet Volume 11.2 fl (7.4-10.4); Monocytes Absolute Auto 0.6 K/mm3 (0.1-0.6); Monocytes Percent Auto 6.6 % (2.6-8.5); Neutrophils Absolute Auto 5.2 K/mm3 (1.3-6.7); Platelet Count Result 378 k/mm3 (150-375); Red Blood Count 4.95 M/mm3 (4.2-5.4); White Blood Count 8.8 K/mm3 (4.5-10.0)
[2024-01-03 12:18] LABS: Appearance Urine Clear (Clear); Bacteria Urine None Seen /hpf; Bilirubin Urine Negative (Negative); Blood Urine Negative (Negative); Color Urine Yellow (Yellow); Glucose Urine UA Negative (Negative); Ketones Urine Trace mg/dL (Negative); Leukocyte Esterase Ur 2+ LEU/UL (Negative); Nitrate Urine Negative (Negative); Non Pathogenic Casts 0-2; Protein Urine Trace mg/dL (Negative); RBC Urine 0-2 /hpf (0-2); Specific Grav Ur 1.021 (1.001-1.035); Squamous Epithelial Cell Urine None Seen /hpf (Few); pH Urine 6.5 (5.0-9.0)
[2024-01-03 12:20] LABS: Albumin Level 4.7 g/dL (3.5-5.1); Anion Gap 7 mmol/L (8-16); Blood Urea Nitrogen 15 mg/dL (7-17); Carbon Dioxide 34 mmol/L (22-30); Chloride 98 mmol/L (98-107); Estimated Glomerular Filt Rate > 60; Glucose 95 mg/dL (65-110); Potassium 3.9 mmol/L (3.4-5.0); Sodium 139 mmol/L (137-145)
[2024-01-03 12:24] LABS: Partial Thromboplastin Time 27.1 Seconds (22.3-36.8); Prothrombin Time 13.6 Seconds (11.1-14.7)
[2024-01-03 12:26] LABS: Add Urine Microscopic? YES
[2024-01-03 13:23] LABS: MRSA (PCR) NOT DETECTED (NOT DETECTE)
[2024-01-03 20:38] LABS: Urine Cotinine NEGATIVE
[2024-01-04 09:03] LABS: Hemoglobin A1C 6.3 % (<5.7)
== END 2024-01-03 10:31 | disposition home or self-care (01) ==
LOC: ANHSURGERY 10:34
PROVIDERS: PCP Family Medicine; Visit Provider Orthopaedic Surgery
DX: M17.11 Unilateral primary osteoarthritis, right knee (principal); Z01.818 Encounter for other preprocedural examination
CPT/HCPCS: 80048; 80307; 82040; 83036; 85025; 85610; 85730; 86850; 86900; 86901; 87086; 87641

== ENCOUNTER 2024-01-14 10:56 | Outpatient (CLI) | payer MEDICARE, MEDICAID, SELFPAY ==
[2024-01-14 17:08] LABS: Cholesterol 163 mg/dL (0-200); HDL Direct 35 mg/dL; Triglycerides 221 mg/dL (<150)
[2024-01-14 17:18] LABS: LDL Cholesterol Direct 78 mg/dL
[2024-01-14 17:36] LABS: Vitamin D 25 Hydroxy 62.4 ng/mL
== END 2024-01-14 10:57 | disposition home or self-care (01) ==
PROVIDERS: PCP Family Medicine; Visit Provider Family Medicine
DX: E55.9 Vitamin D deficiency, unspecified (principal); F31.9 Bipolar disorder, unspecified; E78.5 Hyperlipidemia, unspecified; E53.8 Deficiency of other specified B group vitamins
CPT/HCPCS: 36415; 80061; 82306; 82607; 84443

== ENCOUNTER 2024-01-16 00:29 | Day surgery (SDC) | payer MEDICARE, MEDICAID, SELFPAY ==
[2024-01-03 11:08] VITALS: BP 131/86; PULSE 65; RESP 16; TEMP 36.6; O2SAT 98; BMI 33.9
--- NOTE | 2024-01-03 11:21 | PC.NURSE ---
Report to the Outpatient Waiting Room, entrance under the green pavilion located off [facility], at time __8:30AM on date __01/16/24 . Planned Procedure Time: __10:30AM . Time changes happen often and if your time is changed the preop area will call you the afternoon before. - You and your visitor will be asked to self-screen and do not enter if you have any COVID symptoms. - A mask is optional within the hospital at this time. Patients may have clear liquids (water, carbonated beverages, clear teas, apple juice) until 3 hours prior to surgery with a maximum of 20 ounces. - No food from midnight until time of surgery. Take the following medications with a SIP of water the morning of surgery: ___ARIPIRAZOLE, PAROXETINE, PROPRANANOL DO NOT STOP ANY OF YOUR OTHER PRESCRIPTION MEDICATIONS PRIOR TO SURGERY ?EXCEPT THE FOLLOWING Medications to discontinue per physician ___HOLD IBUPROFEN & ASPIRIN 7 DAYS PRE-OP PER DR URIAS- LAST DOSE 01/08/24 HOLD ALL VITAMINS/SUPPLEMENTS 3 DAYS PRE-OP PER ANESTHESIA- LAST DOSE 01/12/24. Please no make-up, nail portuguese, hairspray, perfume, deodorant, or body powder the day of surgery. No jewelry (including any body piercings) or valuables the day of surgery, leave them at home. Please take a shower or bath the night before, or the morning of, surgery with an antibacterial soap. Wear comfortable, loose fitting clothing. Children are encouraged to wear pajamas. - Jewelry must be removed prior to entering the operating room. Rings and piercings that are not removed may be cut off. - The hospital will not accept responsibility for valuables. - Please leave all valuables, including medications, at home the day of surgery. If you are going home after surgery, a licensed truck driver supervisor must drive you home. - NO public transportation without another adult if you receive anesthesia. - We recommend that an adult stay with you for 24 hours following discharge. - We also recommend that you do not drive, make important decision, drink alcoholic beverages, or take any drugs that were not prescribed by your health care provider for at least 24 hours after your discharge time. Follow any additional instructions given to you from your surgeon. If you or anyone in your household have experienced Covid symptoms in the past week, please notify your surgeon or the nurse liaison at the phone number below for possible testing. Telephone instructions given to __PATIENT & BOYFRIEND and asked if any additional questions and then verbalized understanding. Patient advised to call surgeon office or pre surgery nurse liaison [phone] if any additional questions.
[2024-01-16] VITALS (14 sets, daily range): BP systolic 105–126; BP diastolic 61–81; PULSE 64–86; RESP 10–20; TEMP 36.2–37.4; O2SAT 94–100; BMI 33.3
--- NOTE | ~2024-01-16 | XR_ITS ---
XR_[id number]_CR DATE: 01/16/2024 13:50 INDICATION: Right knee joint replacement TECHNIQUE: Postoperative AP and lateral views COMPARISON: 11/12/2023 right knee FINDINGS: Skin ramona are noted along the anterior aspect of the knee. There is expected postoperati ve subcutaneous and intra-articular emphysema. Status post right knee arthroplasty without patellar resurfacing. No fracture or dislocation. No unus ual radiopaque foreign body. IMPRESSION: Postoperative examination following right knee arthroplasty Reviewed, dictated and finalized at Location A. Reviewed, dictated and finalized at location B.
--- NOTE | 2024-01-16 07:20 | WPDHPUPDATE1 ---
History and Physical Update Update Date/Time: 01/16/24 07:20 History and Physical has been reviewed, including an updated exam of the patient. There are NO changes in the patient's condition. Risks, benefits, and alternatives have been discussed and questions answered. Patient agrees to proceed with procedure.
[2024-01-16] MEDS: LACTATED RINGERS 1,000 ML 30 ML IV CONT ×2 (09:05→13:17)
[2024-01-16] MEDS: ONDANSETRON INJ 4 MG/2 ML VIAL IV PUSH (09:30)
[2024-01-16] MEDS: FAMOTIDINE 20 MG/2 ML VIAL IV PUSH (09:30)
--- NOTE | 2024-01-16 09:40 | WPDANESEPPF ---
Anes - Initial Pre Proc Eval Procedure: Operation Date: 01/16/24 10:30 Proposed Procedures p Right Total Knee Arthroplasty - Raj Pagan MD Date/Time: 01/16/24 09:40 Surgeon: Raj Pagan MD Pre Op Diagnosis: right knee djd Patient Data Age: 58 Gender: F Height: 1.6 m Weight: 86.8 kg Last Vital Signs Temp 97.8 F 01/03/24 11:08 Pulse 65 01/03/24 11:08 Resp 16 01/03/24 11:08 BP 131/86 01/03/24 11:08 Pulse Ox 98 01/03/24 11:08 O2 Del Method Room Air 01/03/24 11:08 Allergies Allergy/AdvReac Type Severity Reaction Status Date / Time Penicillins Allergy Intermediate Hives Verified 01/14/24 10:14 acetaminophen [From Tylenol] AdvReac Mild Nausea and Verified 01/14/24 10:14 Vomiting Home Medications Medication Instructions Recorded Confirmed Type aripiprazole 2 mg tablet 2 mg PO QAM 12/08/19 01/14/24 History aspirin 81 mg tablet,delayed 81 mg PO DAILY 12/08/19 01/14/24 History release (Adult Aspirin Regimen) paroxetine HCl 20 mg tablet 20 mg PO QAM #90 tabs 12/12/21 01/14/24 Rx cholecalciferol (vitamin D3) 50 100 mcg PO DAILY 08/14/22 01/14/24 History mcg (2,000 unit) capsule ibuprofen 200 mg capsule 400 mg PO Q6H PRN Pain 08/14/22 01/14/24 History nxvkoqbd-tzj-vieyl 120 mcg-lutein 2 tablet PO DAILY 08/14/22 01/14/24 History 150 mcg-herb 37.5 mg chewable tablet (Alive Women's 50 Plus Gummy) hydrochlorothiazide 25 mg tablet 25 mg PO QAM #90 tabs 10/30/23 01/14/24 Rx chlorhexidine gluconate 4 % 1 applic topical ONCE #237 mL 12/31/23 01/14/24 Rx topical liquid (Hibiclens) ascorbic acid (vitamin C) 500 mg 500 mg PO DAILY 01/03/24 01/14/24 History chewable tablet wmqyzwxyqtlq-Fn-frkf-minerals 18 1 tablet PO DAILY 03/21/24 04/01/24 History mg-0.4 mg tablet propranolol 80 mg tablet 80 mg PO QAM 01/03/24 01/14/24 History spironolactone 100 mg tablet 100 mg PO QAM 01/03/24 01/14/24 History sulfamethoxazole 800 1 tablet PO Q12H #20 tabs 01/03/24 01/14/24 Rx mg-trimethoprim 160 mg tablet (Bactrim DS) atorvastatin 20 mg tablet 20 mg PO QPM 01/14/24 01/14/24 History Patient hx anesthesia problems: none Family hx anesthesia problems: none Results Review: All pre-operative results and documents have been reviewed as part of the pre-operative evaluation. [facility] Past Medical History Medical History Acne, unspecified Anxiety Arthritis Bipolar disorder Breast cancer screening Dyslipidemia Endometriosis Essential hypertension History of rectal cancer History of TIA (transient ischemic attack) Joint pain Left knee DJD Left knee pain Migraines Osteoarthritis Prediabetes Rectal cancer with radiation therapy and chemotherapy Sleep apnea in adult UTI (urinary tract infection) Surgical History Surgical History H/O total hysterectomy (2006) Hx of tubal ligation (~2004) Presence of total left knee joint prosthesis Family History Family History Grandparent Family history of premature coronary heart disease Mother Patient's mother is Family history of malignant neoplasm of breast in first degree relative Social History Social History Smoking status: Never smoker Tobacco type: cigarettes Second hand tobacco smoke exposure: No Alcohol intake: current Substance use: current Substance use type: marijuana Other substance usage details: SMOKES MARIJUANA DAILY Do You Feel Safe in your Home?: Yes Lack of Transportation: No Lack of Food: Sometimes True Current Housing: I Have Housing Concerned About Future Housing: YES Difficulty Paying Gas/Electric Bills: YES Difficulty Paying for Meds: No Currently Unemployed: No Education: Trade/Vocational Certificate Difficulty
[2024-01-16] MEDS: TRANEXAMIC ACID 1,000MG/ISO100 1,000 MG/100 ML BAG 200 MG IVPB (10:17)
--- NOTE | 2024-01-16 10:47 | WPDANESPNB ---
Anes - Peripheral Nerve Block Date/Time: 01/16/24 10:47 I have discussed with the patient/family/POA the placement of a peripheral nerve block for post-operative pain management, including associated risks, benefits, complications, and side effects. Alternative methods of post-operative analgesia were detailed. Questions were solicited and answers provided to the satisfaction of the patient/family/POA. Time-Out: A pre-procedural Time-Out was completed immediately before starting the procedure and confirmed: Patient Identification, Site, Procedure, Patient Position and the Availability of Requisite Equipment. Clinical Indications: Acute post-operative pain management requested by the operative surgeon. Nerve Block Insertion Note Anes-nerve block: adductor canal right Patient position: supine Skin prep: chlorhexidine Needle: 22 gauge, stimulating, insulated echogenic needle. Needle length: 80 mm Technique: ultrasound Injectate: other (Bupiv 0.5% 25 mls. ) Observations: tolerated well Complications: none Procedure start time:: 1015 Versed 2 mg Fentanyl 50 mcg. Procedure end time:: 1025
[2024-01-16] MEDS: ceFAZolin 2 GM/D5W 50 ML 2 GM/50 ML BAG IVPB ×2 (10:55→20:29)
[2024-01-16] MEDS: SODIUM CHLORIDE 0.9% IV 37.7 ML, MORPHINE SULFATE INJ (*CRX) 2 MG, ROPivacaine HCL 1% 2... INFILTRATE (11:25)
[2024-01-16] MEDS: TRANEXAMIC ACID 1,000 MG/10 ML AMPUL 1000 MG IV PUSH (12:33)
--- NOTE | 2024-01-16 13:09 | W.PM.PROC2 ---
Procedure Note - Detailed Date of Procedure 01/16/24 Pre-op Diagnosis right knee djd Post-op Diagnosis Same Procedure Performed R TKA Surgeon Raj Pagan MD Anesthesia General Description of Procedure THE RIGHT KNEE WAS PREPPED AND DRAPED IN THE STERILE FASHION. A MIDLINE SKIN INCISION WAS MADE. A MEDIAL PARAPATELLAR ARTHROTOMY WAS MADE. THE PATELLA WAS EVERTED. THERE WAS TRICOMPARTMENT DJD. THERE WAS MINIMAL PATELLA DJD. AN INTRAMEDULLARY NIELS WAS PLACED IN THE FEMUR. A DISTAL FEMORAL CUT WAS MADE IN 5 DEGREES OF VALGUS REMOVING APPROXIMATELY 9 MM OF BONE FROM THE DISTAL FEMUR. THE FEMUR WAS SIZED TO 65. A 65 FEMORAL CUTTING BLOCK WAS PLACED IN 3 DEGREES OF EXTERNAL ROTATION AND IN ALIGNMENT WITH RICO'S LINE AND THE TRANSEPICONDYLAR AXIS. ANTERIOR POSTERIOR AND CHAMFER CUTS WERE MADE. THE CUTS WERE EXCELLENT. NEXT AN INTRAMEDULLARY CUTTING GUIDE WAS PLACED IN THE TIBIA. A TRANS TIBIAL CUT WAS MADE ALONG THE LONG AXIS OF THE TIBIA. APPROXIMATELY 10 MM OF BONE WAS REMOVED FROM THE HIGH SIDE OF THE TIBIA. THE TIBIA WAS THEN PLANED TO A SMOOTH SURFACE. POSTERIOR FEMORAL OSTEOPHYTES WERE REMOVED FROM THE FEMORAL CONDYLES. A 71 TIBIAL TRIAL WAS PLACED IN ALIGNMENT WITH THE 1/3 MEDIAL ASPECT OF THE TIBIAL TUBERCLE. THEN A 65 FEMORAL TRIAL COMPONENT WAS PLACED. BOTH HAD EXCELLENT FITS. EVENTUALLY A 10 MM CR POLYETHYLENE TRIAL COMPONENT WAS PLACED. THE KNEE WAS TAKEN THROUGH A RANGE OF MOTION. THE KNEE CAME OUT TO FULL EXTENSION. THERE WAS NO ABNORMAL TILT TO THE PATELLA. THERE WAS GOOD A/P AND VARUS/VALGUS STABILITY. THERE WAS NO EXCESSIVE ROLL BACK WITH FLEXION. THE TRIAL COMPONENTS WERE REMOVED. THEN A 65 FEMORAL COMPONENT AND 71 TIBIAL COMPONENT WITH A 10 CR POLYETHYLENE COMPONENT WERE CEMENTED INTO PLACE. ONCE THE CEMENT WAS HARD THE KNEE WAS TAKEN THROUGH A ROM AGAIN AND FOUND TO BE STABLE WITH NO PATELLA TILT NO EXCESSIVE ROLL BACK WITH FLEXION AND GOOD STABILITY WITH COMPLETE AND FULL EXTENSION. THE KNEE WAS IRRIGATED WITH STERILE BETADINE AND WATER FOR ABOUT 3 MINUTES. THE BLEEDERS WERE CAUTERIZED. THE ARTHROTOMY WAS REPAIRED WITH NUMBER 1 VICRYL. THE SUB CUTANEOUS LAYER WITH 2-0 VICRYL AND THE SKIN WITH ISIDRO. THE WOUND WAS WASHED AND A STERILE DRESSING WAS APPLIED. PATIENT WAS EXTUBATED. Estimated Blood Loss -150.0 Pathology None sent Complications No immediate complications Condition Stable Disposition PACU
--- NOTE | 2024-01-16 14:57 | ADMGEN ---
This patient, Madina Davey, was admitted to [address] [facility] Surg Room 315-01. Patient/family oriented to hospital policies and general routines including ID bracelet, bed and alarms, visiting hours, pain management, procedures, bathroom and other care routines, personal items, smoking policy, room service/diet, and visiting hours. Information on how to activate the Rapid Response Team has been discussed. Patient/Family are encouraged to report perceived risks to care and to ask questions if they do not understand what they are told or what they should do.
[2024-01-16] MEDS: KETOROLAC 15 MG/ML VIAL (*BKC) IV PUSH ×2 (15:16→20:29)
[2024-01-16] MEDS: SENNA/DOCUSATE SODIUM TABLET 2 TAB PO (16:18)
[2024-01-16] MEDS: ASPIRIN 325 MG ENTERIC TABLET PO (20:29)
[2024-01-16] MEDS: FAMOTIDINE 20 MG TABLET PO (20:40)
[2024-01-17 00:32] VITALS: BP 94/55; PULSE 72; RESP 16; TEMP 36.7; O2SAT 98
[2024-01-17] MEDS: KETOROLAC 15 MG/ML VIAL (*BKC) IV PUSH ×2 (03:14→09:30)
[2024-01-17] MEDS: ceFAZolin 2 GM/D5W 50 ML 2 GM/50 ML BAG IVPB ×2 (03:15→11:56)
--- NOTE | 2024-01-17 03:25 | PC.NURSE ---
Stock Pitcher ordered cryo cuff from central supply at approx 2100.. Pt stated she did not want to use it at this time.
[2024-01-17 04:32] VITALS: BP 123/60; PULSE 71; RESP 20; TEMP 36.3; O2SAT 99
[2024-01-17 06:40] LABS: Basophils Percent Auto 0.2 % (0.2-1.2); Hematocrit 34.9 % (37.0-47.0); Hemoglobin 11.3 g/dL (12.0-15.0); Immature Granulocyte Absolute 0.12 K/mm3 (0.00-0.031); Immature Granulocyte Percent A 0.6 % (0-0.5); Lymphocytes Absolute Auto 1.98 K/mm3 (0.9-3.2); Lymphocytes Percent Auto 10.6 % (18.3-44.2); Mean Corpuscular HGB Conc 32.4 g/dl (32-36); Mean Corpuscular Hemoglobin 28.3 pg (26-34); Mean Corpuscular Volume 87.5 fl (80-100); Mean Platelet Volume 11.4 fl (7.4-10.4); Monocytes Absolute Auto 1.2 K/mm3 (0.1-0.6); Monocytes Percent Auto 6.2 % (2.6-8.5); Neutrophils Absolute Auto 15.3 K/mm3 (1.3-6.7); Neutrophils Percent Auto 82.4 % (45.5-73.1); Platelet Count Result 342 k/mm3 (150-375); Red Blood Count 3.99 M/mm3 (4.2-5.4); Red Cell Distribution Width 14.2 % (11.5-14.5); White Blood Count 18.6 K/mm3 (4.5-10.0)
[2024-01-17 06:46] LABS: Anion Gap 7 mmol/L (4-12); Blood Urea Nitrogen 22 mg/dL (7-17); Calcium 8.7 mg/dL (8.4-10.2); Carbon Dioxide 24 mmol/L (22-30); Chloride 102 mmol/L (98-107); Estimated CRCL calculation 47 ml/min; Estimated Glomerular Filt Rate 46; Glucose 129 mg/dL (65-110); Potassium 4.1 mmol/L (3.4-5.0); Sodium 133 mmol/L (137-145)
[2024-01-17 08:00] VITALS: BP 115/63; PULSE 70; RESP 16; TEMP 36.7; O2SAT 99
--- NOTE | 2024-01-17 08:38 | P.PNAN_ITS ---
Anes - Prog Note Post-Op Date/Time: 01/17/24 08:38 Vital Signs: Last Vital Signs Temp 36.7 C 01/17/24 08:00 Pulse 70 01/17/24 08:00 Resp 16 01/17/24 08:00 BP 115/63 01/17/24 08:00 Pulse Ox 99 01/17/24 08:00 O2 Del Method Room Air 01/17/24 08:08 O2 Flow Rate 8 01/16/24 13:45 Pain Score (VAS): 3 I/O: Intake & Output 01/16/24 01/17/24 01/17/24 23:59 07:59 15:59 Intake Total 650 200 Output Total 300 Balance 650 -100 Laboratory Tests 01/17/24 06:14 01/17/24 06:14 01/17/24 06:14 WBC 18.6 H RBC 3.99 L Hgb 11.3 L Hct 34.9 L MCV 87.5 MCH 28.3 MCHC 32.4 RDW 14.2 Plt Count 342 MPV 11.4 H Immature Gran % (Auto) 0.6 H Neut % (Auto) 82.4 H Lymph % (Auto) 10.6 L [place] % (Auto) 6.2 Eos % (Auto) 0.0 Baso % (Auto) 0.2 Lymph # (Auto) 1.98 [place] # (Auto) 1.2 H Eos # (Auto) 0.0 Baso # (Auto) 0.0 Abs Immat Gran (auto) 0.12 H Absolute Neuts (auto) 15.3 H Absolute Nucleated RBC 0.000 Nucleated RBC % 0.0 Sodium 133 L Potassium 4.1 Chloride 102 Carbon Dioxide 24 Anion Gap 7 BUN 22 H Creatinine 1.20 H Estim Creat Clear Calc 47 Estimated GFR 46 L Glucose 129 H Calcium 8.7 Patient Feedback: Patient satisfied with anesthetic care.
[2024-01-17] MEDS: FAMOTIDINE 20 MG TABLET PO (09:30)
[2024-01-17] MEDS: SPIRONOLACTONE 50 MG TABLET 100 MG PO (09:31)
[2024-01-17] MEDS: hydroCHLOROthiazide 25 MG TABLET PO (09:31)
[2024-01-17] MEDS: ASCORBIC ACID 500 MG TABLET PO (09:31)
[2024-01-17] MEDS: ASPIRIN 325 MG ENTERIC TABLET PO (09:32)
[2024-01-17] MEDS: CHOLECALCIFEROL 1,000 UNITS TABLET 2000 UNITS PO (09:32)
[2024-01-17] MEDS: PARoxetine 20 MG TABLET PO (09:32)
[2024-01-17] MEDS: ARIPiprazole 2 MG TABLET PO (09:32)
[2024-01-17] MEDS: SENNA/DOCUSATE SODIUM TABLET 2 TAB PO (09:32)
[2024-01-17] MEDS: polyethylene glycoL 3350 17 GM POWD.PACK PO (09:32)
[2024-01-17] MEDS: PROPRANOLOL HCL 40 MG TABLET 80 MG PO (09:32)
--- NOTE | 2024-01-17 09:33 | PM.PNORT ---
Progress Note: A&P Assessment and Plan (1) S/P total knee arthroplasty: Qualifiers: Laterality: right Qualified Code(s): Z96.651 - Presence of right artificial knee joint Code(s): Z96.659 - Presence of unspecified artificial knee joint Status: Acute Assessment and Plan: POD #1 : Right TKA Continue PT/OT. WBAT. Walker. HIGH FALL RISK. Continue pain control. Ice Knee. Protect skin. DVT prophylaxis with Aspirin. SCDs. Incentive Spirometry Use reviewed. Monitor Dressing. Change prior to discharge. Bowel Regimen. Dispo: Home with Home Health pending progress with PT/OT Plan Reviewed history, exam, radiographs and current labs with attending MD and covering surgeon, Dr. Pagan, who agrees with current plan as indicated above. No further recommendations from Dr. Pagan at this time. Subjective Subjective Date/Time Seen: 01/17/24 09:33 Post Op day: 1 Interval history: POD #1: Right TKA Patient doing well. Sitting up in chair at time of exam. No new concerns. Hopeful for d/c home today. Review of Systems Review of Systems: All systems reviewed & are unremarkable except as noted in HPI and below Constitutional: Constitutional: Denies fever(s) and Denies headache(s) ENT: Denies headache(s) Cardiovascular: Cardiovascular: Denies chest pain, Denies diaphoresis, Denies palpitations and Denies dyspnea Respiratory: Respiratory: Denies dyspnea Gastrointestinal: Gastrointestinal: Denies abdominal pain, Denies constipation, Denies nausea and Denies vomiting Genitourinary: Genitourinary: Reports nocturia and Denies dysuria Musculoskeletal: Musculoskeletal: Reports arthralgias (Right Knee ) and Reports joint swelling (Right Knee ) Neurologic: Denies headache(s) Endocrine: Endocrine: Denies palpitations Exam Const: General: comfortable and no acute distress Resp: Effort & Inspection: normal respiratory effort Cardio: Rate: regular rate Rhythm: regular rhythm GI: GI Palp: Yes Soft to palpation, No Tenderness to palpation present (GI) and No Guarding due to palpation present (GI) Skin: General skin exam: wounds noted Wounds: wounds noted Other: Incision c/d/i. No surrounding redness/warmth. No hematoma. Mild ecchymosis. No wound dehiscence Neuro: Cognition (Neuro): normal cognition Other: NV intact aside from block. Moves toes. Sensation intact to light touch. +ankle dorsiflexion/plantarflexion. Extrem: Right lower extremity: normal to inspection, knee Details: tenderness (diffuse, mild ) Location: of the patella, swelling (diffuse, consistent with surgical intervention ), abnormal ROM Details: pain with active ROM during, pain with passive ROM during and with range as follows (limited due to recent surgical intervention ); able to extend lower leg actively and ecchymosis (mild ), lower leg (Negative Kojo's Sign ) Details: normal to inspection; no erythema and no tenderness, ankle (+ankle dorsiflexion/plantarflexion ) Details: normal to inspection, no edema and normal ROM; no tenderness, no swelling and no ecchymosis and foot Details: normal capillary refill, normal to inspection, vascular exam Details: dorsalis pedis pulse present and motor-sensory exam Details: light-touch normal; no tenderness Left lower extremity: normal to inspection Psych: Mental Status: mental status grossly normal Objective Data Vital Signs Vital Signs: Vital Signs - 24 hr 01/16/24 13:17 01/16/24 13:30 01/16/24 13:45 Temperature 37.4 C Pulse Rate 73 75 76 Respiratory Rate 10 L 10 L 12 Blood Pressure 119/72 105/70 119/81 Pulse Oximetry 96 96 100 Oxygen Delivery Simple Face Mask Simple Face Mask Simple Face Mask Oxygen Flow Rate 8 8 8 01/16/24 13:55 01/16/24 14:00 01/16/24 14:15 Temperature Pulse Rate 81 73 Respiratory Rate 14 12 Blood Pressure 119/81 119/66 Pulse Oximetry 95 98 95 Oxygen Delivery Room Air Room Air Room Air Oxygen Flow Rate 01/16/24 14
[2024-01-17 11:56] VITALS: BP 119/64; PULSE 76; RESP 16; TEMP 37; O2SAT 98
--- NOTE | 2024-01-17 15:24 | PM.DS ---
DS: Admitting Diagnosis Discharge Date 01/17/24 Admitting Diagnosis Right Knee DJD DS: Discharge Diagnosis Discharge Diagnosis (1) S/P total knee arthroplasty: Qualifiers: Laterality: right Qualified Code(s): Z96.651 - Presence of right artificial knee joint Code(s): Z96.659 - Presence of unspecified artificial knee joint Status: Acute Assessment and Plan: POD #1 : Right TKA Continue PT/OT. WBAT. Walker. HIGH FALL RISK. Continue pain control. Ice Knee. Protect skin. DVT prophylaxis with Aspirin. SCDs. Incentive Spirometry Use reviewed. Monitor Dressing. Change prior to discharge. Bowel Regimen. Dispo: Home with Home Health pending progress with PT/OT Plan Reviewed history, exam, radiographs and current labs with attending MD and covering surgeon, Dr. Pagan, who agrees with current plan as indicated above. No further recommendations from Dr. Pagan at this time. DS: Summary Hospital Course Reason for hospitalization: Right TKA Hospital Course: 58 year old female admitted s/p Right TKA for postoperative medical management, pain control and mobilization with PT/OT. Patient progressed well with PT/OT. Pain and vitals remained stable throughout. The patient has been cleared to be discharged home with home health at this time. All discharge care instructions reviewed at depth. New medications reviewed. Follow up planned for 3 weeks in the outpatient orthopedic clinic with Dr. Pagan. Dr. Pagan in agreement with safe discharge at this time. Status at Discharge Functional status at discharge: uses cane/walker Overall status at discharge: patient is progressing back to baseline Time Spent with Patient Time attestation: Total time spent providing and/or coordinating discharge services: Exam Const: General: comfortable and no acute distress Resp: Effort & Inspection: normal respiratory effort Cardio: Rate: regular rate Rhythm: regular rhythm Skin: General skin exam: wounds noted Wounds: wounds noted Other: Incision c/d/i. No surrounding redness/warmth. No hematoma. Mild ecchymosis. No wound dehiscence Neuro: Cognition (Neuro): normal cognition Other: NV intact aside from block. Moves toes. Sensation intact to light touch. +ankle dorsiflexion/plantarflexion. Extrem: Right lower extremity: normal to inspection, knee Details: tenderness (diffuse, mild ) Location: of the patella, swelling (diffuse, consistent with surgical intervention ), abnormal ROM Details: pain with active ROM during, pain with passive ROM during and with range as follows (limited due to recent surgical intervention ); able to extend lower leg actively and ecchymosis (mild ), lower leg (Negative Kojo's Sign ) Details: normal to inspection; no erythema and no tenderness, ankle (+ankle dorsiflexion/plantarflexion ) Details: normal to inspection, no edema and normal ROM; no tenderness, no swelling and no ecchymosis and foot Details: normal capillary refill, normal to inspection, vascular exam Details: dorsalis pedis pulse present and motor-sensory exam Details: light-touch normal; no tenderness Left lower extremity: normal to inspection Psych: Mental Status: mental status grossly normal DS: Data Data Completed and Pending Labs on day of discharge: Labs from last 24 hours 01/17/24 06:14 WBC 18.6 H RBC 3.99 L Hgb 11.3 L Hct 34.9 L MCV 87.5 MCH 28.3 MCHC 32.4 RDW 14.2 Plt Count 342 MPV 11.4 H Immature Gran % (Auto) 0.6 H Neut % (Auto) 82.4 H Lymph % (Auto) 10.6 L [place] % (Auto) 6.2 Eos % (Auto) 0.0 Baso % (Auto) 0.2 Lymph # (Auto) 1.98 [place] # (Auto) 1.2 H Eos # (Auto) 0.0 Baso # (Auto) 0.0 Abs Immat Gran (auto) 0.12 H Absolute Neuts (auto) 15.3 H Absolute Nucleated RBC 0.000 Nucleated RBC % 0.0 Sodium 133 L Potassium 4.1 Chloride 102 Carbon Dioxide 24 Anion Gap 7 BUN 22 H Creatinine 1.20 H Estim Creat Clear Calc 47 Estimated GFR 46 L Glucose
== END 2024-01-17 15:45 | disposition home health service (06) ==
LOC: ANHSURGERY 08:22 → ANH3MEDSUR 14:52
PROVIDERS: PCP Family Medicine; Visit Provider Orthopaedic Surgery
PROC: (CPT 27447; principal; 2024-01-16 10:30)
DX: M17.11 Unilateral primary osteoarthritis, right knee (principal); M25.761 Osteophyte, right knee; I10 Essential (primary) hypertension; E78.5 Hyperlipidemia, unspecified; R73.03 Prediabetes; F41.9 Anxiety disorder, unspecified; F31.9 Bipolar disorder, unspecified; N80.9 Endometriosis, unspecified; G47.30 Sleep apnea, unspecified; F12.90 Cannabis use, unspecified, uncomplicated; E66.9 Obesity, unspecified; Z68.33 Body mass index [BMI] 33.0-33.9, adult; G89.18 Other acute postprocedural pain; Z79.82 Long term (current) use of aspirin; Z79.1 Long term (current) use of non-steroidal anti-inflammatories (NSAID); Z98.890 Other specified postprocedural states; Z92.3 Personal history of irradiation; Z92.21 Personal history of antineoplastic chemotherapy; Z85.048 Personal history of other malignant neoplasm of rectum, rectosigmoid junction, and anus; Z86.73 Personal history of transient ischemic attack (TIA), and cerebral infarction without residual deficits; Z80.3 Family history of malignant neoplasm of breast; Z82.49 Family history of ischemic heart disease and other diseases of the circulatory system
CPT/HCPCS: 64447; 27447; 36415; 73560; 80048; 80307; 82040; 83036; 85025; 85610; 85730; 86850; 86900; 86901; 87086; 87641; 97110; 97161; 97165; 97530; A9270; C1713; C1776; J0171; J0690; J1100; J1170; J1885; J2250; J2270; J2405; J2704; J2795; J3010; J3370; J7120

== ENCOUNTER 2024-04-14 19:01 | Emergency (ER) | payer MEDICARE, MEDICAID, SELFPAY ==
--- NOTE | ~2024-04-14 | CT_ITS ---
EXAMINATION: CT brain wo con DATE: 04/14/2024 21:43 INDICATION: dizziness . TECHNIQUE: Computed tomography (CT) of the head was performed without intravenous contrast. The mA wa s adjusted according to patient size. Iterative reconstruction technique was employed. The dose-lengt h product was 605.33 mGy-cm. COMPARISON: 06/02/2019. FINDINGS: No acute intracranial hemorrhage or extra-axial fluid collection. No hydrocephalus, mass, or herniation. No acute ischemic infarct. Unremarkable dural venous sinus attenuation. No acute osseous abnormality. The aerated spaces are clear. IMPRESSION: No acute intracranial process. Reviewed, dictated and finalized at location K.
--- NOTE | ~2024-04-14 | XR_ITS ---
EXAMINATION: XR chest 2V Exam Date/Time: 04/14/2024 21:30 CDT HISTORY: dizziness Comparison: 11/11/2017; CTPA 07/29/2015. RESULT: Lines, tubes, and devices: None. Lungs and pleura: Clear. Partially calcified left lower lobe hamartoma. Cardiomediastinal silhouette: Stable. Other: No acute osseous or upper abdominal finding. IMPRESSION: No acute cardiopulmonary process. Reviewed, dictated and finalized at location K.
[2024-04-14 19:02] VITALS: BP 134/74; PULSE 77; RESP 17; TEMP 36.6; O2SAT 99
--- NOTE | 2024-04-14 19:52 | ECG_ITS ---
Test Date: 2024-04-14 21:14:54 Measurements Intervals [place] Rate: 68 P: 8 GA: 151 QRS: -3 QRSD: 94 T: 4 QT: 412 QTc: 439 Interpretive Statements SINUS RHYTHM VOLTAGE CRITERIA FOR LVH CONSIDER INFERIOR INFARCT, AGE INDETERMINATE BASELINE ARTIFACT- I, II, III, AVR, AVL, AVF, V1-V6 ABNORMAL ECG No previous ECG available for comparison Electronically Signed On 04-15-2024 06:24:15 CDT by Hua Salgado D.O.
[2024-04-14 20:53] VITALS: RESP 18; O2SAT 98
[2024-04-14 20:55] VITALS: BP 151/95; PULSE 67; RESP 18; O2SAT 100
[2024-04-14 21:01] VITALS: BP 119/61; PULSE 70; RESP 15; O2SAT 99
[2024-04-14 21:04] VITALS: PULSE 72; RESP 14; O2SAT 100
[2024-04-14 21:23] LABS: Basophils Percent Auto 0.3 % (0.2-1.2); Eosinophils Absolute Auto 0.1 K/mm3 (0-0.3); Eosinophils Percent Auto 0.5 % (0-4.4); Hematocrit 35.9 % (37.0-47.0); Hemoglobin 11.8 g/dL (12.0-15.0); Immature Granulocyte Absolute 0.02 K/mm3 (0.00-0.031); Immature Granulocyte Percent A 0.2 % (0-0.5); Lymphocytes Absolute Auto 2.86 K/mm3 (0.9-3.2); Lymphocytes Percent Auto 27.3 % (18.3-44.2); Mean Corpuscular HGB Conc 32.9 g/dl (32-36); Mean Corpuscular Hemoglobin 27.1 pg (26-34); Mean Corpuscular Volume 82.5 fl (80-100); Monocytes Absolute Auto 0.8 K/mm3 (0.1-0.6); Monocytes Percent Auto 7.8 % (2.6-8.5); Neutrophils Absolute Auto 6.7 K/mm3 (1.3-6.7); Neutrophils Percent Auto 63.9 % (45.5-73.1); Platelet Count Result 330 k/mm3 (150-375); Red Blood Count 4.35 M/mm3 (4.2-5.4); Red Cell Distribution Width 13.9 % (11.5-14.5); White Blood Count 10.5 K/mm3 (4.5-10.0)
[2024-04-14 21:33] LABS: Alanine Aminotransferase 20 U/L (6-35); Albumin Level 4.6 g/dL (3.5-5.1); Alkaline Phosphatase 169 U/L (38-126); Anion Gap 9 mmol/L (4-12); Aspartate Amino Transferase 30 U/L (14-36); Bilirubin,Total 0.5 mg/dL (0.2-1.3); Blood Urea Nitrogen 16 mg/dL (7-17); Calcium 9.5 mg/dL (8.4-10.2); Carbon Dioxide 29 mmol/L (22-30); Chloride 100 mmol/L (98-107); Estimated CRCL calculation 61 ml/min; Estimated Glomerular Filt Rate > 60; Glucose 108 mg/dL (65-110); Potassium 3.3 mmol/L (3.4-5.0); Sodium 138 mmol/L (137-145)
--- NOTE | 2024-04-14 21:33 | ED.DIZZY ---
HPI - Dizziness General Chief Complaint: Dizziness Stated Complaint: dizzy Time Seen by Provider: 04/14/24 20:52 Source: patient Mode of arrival: ambulatory Limitations: no limitations History of Present Illness HPI Narrative: This is a 59-year-old female that presents to the emergency department for intermittent dizziness. Ongoing over the last couple of weeks. Associated with nausea and vomiting. Reports room spinning dizziness. Has had history of trouble with this in the past. Was told she had vertigo due to an ear problem. Denies fevers, chest pain, shortness of breath, palpitations, vision changes, numbness, weakness. Related Data Home Medications Medication Instructions Recorded Confirmed aripiprazole 2 mg tablet 2 mg PO QAM 12/08/19 02/07/24 aspirin 81 mg tablet,delayed 81 mg PO DAILY 12/08/19 02/07/24 release (Adult Aspirin Regimen) cholecalciferol (vitamin D3) 50 100 mcg PO DAILY 08/14/22 02/07/24 mcg (2,000 unit) capsule ibuprofen 200 mg capsule 400 mg PO Q6H PRN Pain 08/14/22 02/07/24 intngbmd-ypf-asmjp 120 mcg-lutein 2 tablet PO DAILY 08/14/22 02/07/24 150 mcg-herb 37.5 mg chewable tablet (Alive Women's 50 Plus Gummy) ascorbic acid (vitamin C) 500 mg 500 mg PO DAILY 01/03/24 02/07/24 chewable tablet qinhtpzomkkz-Ot-pybk-minerals 18 1 tablet PO DAILY 01/03/24 02/07/24 mg-0.4 mg tablet spironolactone 100 mg tablet 100 mg PO QAM 01/03/24 02/07/24 atorvastatin 20 mg tablet 20 mg PO QPM 01/14/24 02/07/24 Allergies Allergy/AdvReac Type Severity Reaction Status Date / Time Penicillins Allergy Intermediate Hives Verified 02/07/24 12:31 acetaminophen [From Tylenol] AdvReac Mild Nausea and Verified 02/07/24 12:31 Vomiting Review of Systems Review of Systems: CONSTITUTIONAL: Denies fever EYES: Denies visual changes, CARDIOVASCULAR: Denies chest pain, palpitations, or edema. RESPIRATORY: Denies dyspnea. GASTROINTESTINAL: Reports nausea, vomiting NEUROLOGIC: Denies numbness, or weakness. All systems reviewed & are unremarkable except as noted in HPI and below PMFSH Past Medical History Medical History Acne, unspecified Anxiety Arthritis Bipolar disorder Breast cancer screening Dyslipidemia Endometriosis Essential hypertension History of rectal cancer History of TIA (transient ischemic attack) Joint pain Left knee DJD Left knee pain Migraines Osteoarthritis Prediabetes Rectal cancer with radiation therapy and chemotherapy Sleep apnea in adult UTI (urinary tract infection) Surgical History Surgical History H/O total hysterectomy (2006) Hx of tubal ligation (~2004) Presence of total left knee joint prosthesis S/P total knee arthroplasty Family History Family History Grandparent Family history of premature coronary heart disease Mother Patient's mother is Family history of malignant neoplasm of breast in first degree relative Social History Social History Smoking status: Never smoker Tobacco type: cigarettes Second hand tobacco smoke exposure: No Alcohol intake: never Substance use: current Substance use type: marijuana Other substance usage details: SMOKES MARIJUANA DAILY Do You Feel Safe in your Home?: Yes Lack of Transportation: No Lack of Food: Never True Current Housing: I Have Housing Concerned About Future Housing: No Difficulty Paying Gas/Electric Bills: No Difficulty Paying for Meds: No Currently Unemployed: No Education: Trade/Vocational Certificate Difficulty w/ Childcare or Family Care: No Living arrangements: alone Occupation/Education: unemployed Additional occupation/education comments: Disability Gender identity (if verbalized by the patient): Female Sexual
[2024-04-14] MEDS: MECLIZINE HCL 25 MG TABLET PO (21:42)
[2024-04-14] MEDS: ONDANSETRON INJ 4 MG/2 ML VIAL IV PUSH (21:42)
[2024-04-14] MEDS: SODIUM CHLORIDE 0.9% IV 1,000 ML 999 ML IV CONT (21:42)
[2024-04-14] MEDS: POTASSIUM CHLORIDE 20 MEQ PACKET (FOR LIQUID) 40 MEQ PO (21:43)
[2024-04-14 21:53] LABS: Magnesium 1.8 mg/dL (1.6-2.3)
[2024-04-14 23:05] VITALS: BP 137/68; PULSE 61; PULSE 63; RESP 17; O2SAT 100
== END 2024-04-14 23:41 | disposition home or self-care (01) ==
PROVIDERS: Student in an Organized Health Care Education/Training Program; Emergency Provider Physician Assistant; PCP Family Medicine
DX: R42 Dizziness and giddiness (principal); E87.6 Hypokalemia; E78.5 Hyperlipidemia, unspecified; I10 Essential (primary) hypertension; M17.12 Unilateral primary osteoarthritis, left knee; R73.03 Prediabetes; G47.30 Sleep apnea, unspecified; F41.9 Anxiety disorder, unspecified; F31.9 Bipolar disorder, unspecified; Z96.652 Presence of left artificial knee joint; Z86.73 Personal history of transient ischemic attack (TIA), and cerebral infarction without residual deficits; Z85.048 Personal history of other malignant neoplasm of rectum, rectosigmoid junction, and anus; Z87.440 Personal history of urinary (tract) infections; Z90.710 Acquired absence of both cervix and uterus; Z79.899 Other long term (current) drug therapy; Z79.82 Long term (current) use of aspirin
CPT/HCPCS: 36415; 70450; 71046; 80053; 83735; 85025; 93005; 96361; 96374; 99284; A9270; J2405; J7030

== ENCOUNTER 2024-04-21 10:25 | Outpatient (CLI) | payer MEDICARE, MEDICAID, SELFPAY ==
[2024-04-21 18:47] LABS: Hematocrit 38.8 % (37.0-47.0); Hemoglobin 11.9 g/dL (12.0-15.0); Mean Corpuscular HGB Conc 30.7 g/dl (32-36); Mean Corpuscular Hemoglobin 26.4 pg (26-34); Mean Corpuscular Volume 86.2 fl (80-100); Mean Platelet Volume 12.2 fl (7.4-10.4); Platelet Count Result 359 k/mm3 (150-375); Red Cell Distribution Width 14.4 % (11.5-14.5); White Blood Count 6.6 K/mm3 (4.5-10.0)
[2024-04-21 19:27] LABS: Alanine Aminotransferase 18 U/L (6-35); Albumin Level 4.5 g/dL (3.5-5.1); Alkaline Phosphatase 146 U/L (38-126); Anion Gap 9 mmol/L (4-12); Aspartate Amino Transferase 30 U/L (14-36); Bilirubin,Total 0.3 mg/dL (0.2-1.3); Blood Urea Nitrogen 13 mg/dL (7-17); Calcium 9.5 mg/dL (8.4-10.2); Carbon Dioxide 32 mmol/L (22-30); Chloride 98 mmol/L (98-107); Estimated Glomerular Filt Rate > 60; Glucose 118 mg/dL (65-110); Potassium 4.5 mmol/L (3.4-5.0); Sodium 139 mmol/L (137-145)
== END 2024-04-21 10:26 | disposition home or self-care (01) ==
LOC: ANHGOSHLAB 10:27
PROVIDERS: PCP Family Medicine; Visit Provider Nurse Practitioner Family
DX: E87.6 Hypokalemia (principal); I10 Essential (primary) hypertension
CPT/HCPCS: 36415; 80053; 85027

== ENCOUNTER 2024-05-16 11:40 | Outpatient (RCR) | payer MEDICARE, MEDICAID, SELFPAY ==
--- NOTE | 2024-05-16 12:20 | PTOPEVDC ---
Assessment and note entered by Demarco Moe, PT Thank you for referring Madina Davey to [facility].? An evaluation has been completed. No further treatment is needed. Evaluation Information Assessment Status Evaluation/Discharge ICD-10 Condition Codes (PT) Dizziness & Giddiness R42 Onset 04/14/24 Subjective Information Reports that since following up with the doctor she is doing much better. Denies nausea or spinning other than when laying down. She is lightheaded on sit to stand. Reported Pain Level Pain Score 0: Self Report Assessment PT Clinical Summary Patient was negative for all BPPV testing and demonstrated proper control with foam and narrow base testing this date. Patient and I discussed the occasions of dizziness to ensure that they were not related to dehydration and electrolyte loss. Patient reports that she is having no symptoms at this time and will contact MD should symptoms re-arise. Patient discharged from therapy at this time.
== END 2024-05-16 12:33 | disposition home or self-care (01) ==
LOC: ANHGOSHPT 11:40
PROVIDERS: PCP Family Medicine; Visit Provider Nurse Practitioner Family
DX: R42 Dizziness and giddiness (principal)
CPT/HCPCS: 97161

== ENCOUNTER 2024-07-21 11:16 | Outpatient (CLI) | payer MEDICARE, MEDICAID, SELFPAY ==
[2024-07-21 13:31] LABS: Alanine Aminotransferase 22 U/L (6-35); Albumin Level 4.4 g/dL (3.5-5.1); Alkaline Phosphatase 146 U/L (38-126); Anion Gap 9 mmol/L (4-12); Aspartate Amino Transferase 50 U/L (14-36); Bilirubin,Total 0.7 mg/dL (0.2-1.3); Blood Urea Nitrogen 20 mg/dL (7-17); Calcium 9.6 mg/dL (8.4-10.2); Carbon Dioxide 32 mmol/L (22-30); Chloride 98 mmol/L (98-107); Estimated Glomerular Filt Rate > 60; Glucose 105 mg/dL (65-110); Potassium 3.9 mmol/L (3.4-5.0); Sodium 139 mmol/L (137-145)
[2024-07-21 14:55] LABS: Hemoglobin A1C 6.2 % (<5.7)
== END 2024-07-21 11:17 | disposition home or self-care (01) ==
LOC: ANHGOSHLAB 11:18
PROVIDERS: PCP Family Medicine; Visit Provider Family Medicine
DX: R73.03 Prediabetes (principal); I10 Essential (primary) hypertension
CPT/HCPCS: 36415; 80053; 83036

== ENCOUNTER 2025-01-26 10:18 | Outpatient (CLI) | payer MEDICARE, MEDICAID, SELFPAY ==
--- OUTSIDE RECORDS SUMMARY | 2025-01-26 11:34 | XMS_ITS | Clinical Summary ---
Author Organization [facility] Address [address] [place] [id number] Care Team Providers Care Instructional Supervisor Name Role Phone Yeyo Garcia MD Primary Care Provider [phone] Social History Tobacco Use Types Packs/Day Years Used Date Smoking Tobacco: Never Assessed Comments Unknown Sex and Gender Information Value Date Recorded Sex Assigned at Not on file Legal Sex Female 8:25 PM CDT Gender Identity Not on file Sexual Orientation Not on file Plan of Treatment Health Maintenance Due Date Last Done Comments Cervical Cancer Screening Pa p Smear (Age 30 to 64) Every 3 Years 1964 Colorectal Cancer Screening Colonoscopy (10 Years) 1964 Annual Physical 1967 Hepatitis C 1982 DTaP, Tdap and Td Vaccines ( 1 - Tdap) 1983 Cervical Cancer Screening Pa p with HPV Testing (Age 30 to 64) Every 5 Years 1994 Cervical Cancer Screening with HPV 1994 Mammogram Screening 2004 Zoster Vaccines (1 of 2) 2014 COVID-19 Vaccine (2023-2 5 season) 2024 RSV Immunization or 60+ Years (1 - 1-dose 75+ series) 2039 Meningococcal B Vaccine Aged Out No l onger eligible based on patient's age to complete this topic Meningococcal Vaccine Aged Out No bethel jared eligible based on patient's age to complete this topic Pneumococcal Vaccine: Pediat rics (0 to 5 Years) and At-Risk Patients (6 to 49 Years) Aged Out No longer eligible b ased on patient's age to complete this topic RSV Immunizations Under 20 Months Aged Out No longer eligible based on patient's age to complete this topic Care Teams Instructional Supervisor Relationship Specialty Start Date End Date Yeyo Garcia MD [address] [place] [place] [address] PCP - General 03/24/14
--- OUTSIDE RECORDS SUMMARY | 2025-01-26 11:34 | XMS_ITS | Patient Health Record ---
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 Role Phone Mireya SETH, [facility] Primary [facility] Provider Unavailable Sacha Vázquez Unavailable [phone] Migration, Provider Unavailable Unavailable Allergies Allergen (clinical drug ingredient) Drug/Non Drug Allergy documented on EMR Reaction Allergy Type Onset Date Status acetaminophen Tylenol Unknown Drug Allergy Act edison Penicillin Unknown Drug Allergy Active Reason For Referral No Information Medications Medication SIG (Take, Route, Frequency, Duration) Notes Start Date End Date Status oxyCODONE-Acetaminophen 5-32 5 MG TAKE 1-2 TABLETS BY MOUTH EVERY 4 - 6 HOURS NEEDED FOR PAIN Oral for 5 Days Active ARIPiprazole 2 MG 1 tablet Oral Once a day for 90 days Active Atorvastatin Calcium 20 MG TAKE 1 TABLET BY MOUTH EVERY DAY IN THE MORNING Oral for 90 Days Active PARoxetine HCl 20 MG 1 tablet every morning Oral Once a day for 90 days Active Propranolol HCl 80 MG TAKE 1 TABLET BY MOUTH EVERY DAY IN THE MORNING Oral for 90 Days Active hydroCHLOROthiazide 25 MG TAKE 1 TABLET BY MOUTH EVERY MORNING Oral for 90 Days Active Spironolactone 100 MG TAKE 1 TABLET BY MOUTH EVERY DAY Oral for 90 Days Active Social History Sex Assigned At : Social History Observation Description Sex Assigned At Female Problems Problem Type SNOMED Code ICD Code Onset Dates Problem Status W/U Status Risk Notes Problem Cannabis abuse (34853409) Cannabis abuse, uncomplicated (F12.10) 4 Active confirmed Problem Recurrent major depression in full remission (94091518) Major depressive disorder, recurrent, in full remission (F33.42) 4 Active confirmed Problem Generalized anxiety disorder (23033119) Generalized anxiety disorder (F41.1) 4 Active confirmed Problem 41840109 Essential (primary) hypertension (I10) 0 Active confirmed Problem 197581653 Malignant neoplasm of colon, unspecified part of colon (C18.9) 0 Active confirmed Vital Signs Heart Rate 76 /min 11/17/2024 Height-cm 160.02 cm 11/17/2024 Blood pressure diastolic 74 mm Hg 11/17/2024 Weight-kg 87.63 kg 11/17/2024 Height 63.00 in 11/17/2024 Blood pressure systolic 115 mm Hg 11/17/2024 Weight 193.2 lbs 11/17/2024 BMI 34.22 kg/m2 11/17/2024 Encounters Encounter Location Date Provider Diagnosis [facility] [employer] [address] [address] 02/18/2024 Sacha Kathie Major depressive disorder, recurrent, in full remission F33.42 ; Generalized anxiety disorder F41.1 and Cannabis abuse, uncomplicated F12.10 [facility] [employer] [address] [address] 05/19/2024 Sacha Kathie Major depressive disorder, recurrent, in full remission F33.42 ; Generalized anxiety disorder F41.1 and Cannabis abuse, uncomplicated F12.10 [facility] [employer] [address] 08/18/2024 Sacha Kathie Major depressive disorder, recurrent, in full remission F33.42 ; Generalized anxiety disorder F41.1 and Cannabis abuse, uncomplicated F12.10 [facility] [employer] [address] [address] 11/17/2024 Sacha Kathie Major depressive disorder, recurrent, in full remission F33.42 ; Generalized anxiety disorder F41.1 and Cannabis abuse, uncomplicated F12.10 [facility] [employer] [address] [address] 02/20/2024 Provider Migration [facility] [employer] [address] 03/01/2024 Provider Migration [facility] [employer] [address] 03/02/2024 Provider Migration Assessments Encounter Date Diagnosis (ICD Code) Assessment Notes Treatment Notes Treatment Clinical Notes Section Notes 02/18/2024 Cannabis abuse, uncomplicated (ICD-10 - F12.10) 02/18/2024 Major depressive disorder, recurrent, in full remission (ICD-10 - F33.42) 02/18/2024 Generalized anxiety disorder (ICD-10 - F41.1) 05/19/2024 Major depressive disorder, recurrent, in full remission (ICD-10 - F33.42) Depression and Anxiety - Assessment: Patient reports stable mood and no current anxiety or depression symptoms. - Plan: - Continue brexpiprazole 2 mg daily and paroxetine 20 mg daily. - Follow-up in 3 months to reassess mood and medication effectiveness. Hypokalemia - Assessment: Patient experienced low potassium levels and severe dizziness approximately 2-3 weeks ago, which led to an ER visit at [facility]. Patient received fluids at the ER and was discharged the same day. Patient is currently on hydrochlorothiazide for blood pressure, which can cause low potassium. Patient reports improvement and no current dizziness. - Plan: - Encourage patient to follow up with Dr. Torres (primary care physician) to discuss the potential need for potassium supplementation or medication adjustment. Blood Pressure Management - Plan: - Patient is on hydrochlorothiazide and propranolol for blood pressure control. - Encourage patient to continue taking medications as prescribed and monitor blood pressure regularly. - Follow-up with primary care physician for ongoing management. Cannabis Use - Assessment: Patient reports occasional marijuana use through smoking. - Plan: - Encourage patient to discuss the potential impact of cannabis use on mental health and overall well-being with their primary care physician. Financial Stress - Assessment: Patient experienced temporary financial stress due to miscalculation but resolved the issue independently. - Plan: No further intervention needed at this time. Prescriptions: - Brexpiprazole 2 mg daily (3-month supply) - Paroxetine 20 mg daily (3-month supply) Follow-up: - Schedule a follow-up appointment in 3 months to reassess mood, anxiety, and medication effectiveness. - Encourage patient to maintain regular appointments with their primary care physician for ongoing management of blood pressure and hypokalemia. Pharmacy: - Prescriptions to be sent to [facility] in [place]. 05/19/2024 Generalized anxiety disorder (ICD-10 - F41.1) Depression and Anxiety - Assessment: Patient reports stable mood and no current anxiety or depression symptoms. - Plan: - Continue brexpiprazole 2 mg daily and paroxetine 20 mg daily. - Follow-up in 3 months to reassess mood and medication effectiveness. Hypokalemia - Assessment: Patient experienced low potassium levels and severe dizziness approximately 2-3 weeks ago, which led to an ER visit at [facility]. Patient received fluids at the ER and was discharged the same day. Patient is currently on hydrochlorothiazide for blood pressure, which can cause low potassium. Patient reports improvement and no current dizziness. - Plan: - Encourage patient to follow up with Dr. Torres (primary care physician) to discuss the potential need for potassium supplementation or medication adjustment. Blood Pressure Management - Plan: - Patient is on hydrochlorothiazide and propranolol for blood pressure control. - Encourage patient to continue taking medications as prescribed and monitor blood pressure regularly. - Follow-up with primary care physician for ongoing management. Cannabis Use - Assessment: Patient reports occasional marijuana use through smoking. - Plan: - Encourage patient to discuss the potential impact of cannabis use on mental health and overall well-being with their primary care physician. Financial Stress - Assessment: Patient experienced temporary financial stress due to miscalculation but resolved the issue independently. - Plan: No further intervention needed at this time. Prescriptions: - Brexpiprazole 2 mg daily (3-month supply) - Paroxetine 20 mg daily (3-month supply) Follow-up: - Schedule a follow-up appointment in 3 months to reassess mood, anxiety, and medication effectiveness. - Encourage patient to maintain regular appointments with their primary care physician for ongoing management of blood pressure and hypokalemia. Pharmacy: - Prescriptions to be sent to [facility] in [place]. 08/18/2024 Major depressive disorder, recurrent, in full remission (ICD-10 - F33.42) Depression and Anxiety - Assessment: Patient reports stable mood and no depressive episodes in the last 3 months. Depression score: 0-1 (no depression). Anxiety score: 1 (low). - Plan: - Continue current medications: Aripiprazole 2 mg, Paroxetine 20 mg. - Follow-up in 3 months to monitor progress and adjust treatment as needed. - Send progress note to Dr. Hebert. Hypertension - Assessment: Patient reports stable blood pressure. Blood pressure today: 105/70-something. - Plan: - Continue current medication: Hydrochlorothiazide. - Encourage patient to monitor blood pressure regularly and report any significant changes. History of Colon Cancer - Assessment: Patient diagnosed in 2003, in remission since 2010. Scheduled for colonoscopy on the (every 5 years). Treatment included radiation and chemotherapy. - Plan: - Encourage patient to attend scheduled colonoscopy and follow up with oncologist as needed. - Monitor for any signs or symptoms of recurrence during routine visits. Overall Health - Assessment: Patient reports good overall health and no other medical issues. Patient mentions being in good spirits and good mood. - Plan: - Continue to monitor overall health during routine visits. - Encourage patient to maintain a healthy lifestyle and report any new concerns or symptoms. 11/17/2024 Major depressive disorder, recurrent, in full remission (ICD-10 - F33.42) 11/17/2024 Generalized anxiety disorder (ICD-10 - F41.1) 05/19/2024 Cannabis abuse, uncomplicated (ICD-10 - F12.10) Depression and Anxiety - Assessment: Patient reports stable mood and no current anxiety or depression symptoms. - Plan: - Continue brexpiprazole 2 mg daily and paroxetine 20 mg daily. - Follow-up in 3 months to reassess mood and medication effectiveness. Hypokalemia - Assessment: Patient experienced low potassium levels and severe dizziness approximately 2-3 weeks ago, which led to an ER visit at [facility]. Patient received fluids at the ER and was discharged the same day. Patient is currently on hydrochlorothiazide for blood pressure, which can cause low potassium. Patient reports improvement and no current dizziness. - Plan: - Encourage patient to follow up with Dr. Torres (primary care physician) to discuss the potential need for potassium supplementation or medication adjustment. Blood Pressure Management - Plan: - Patient is on hydrochlorothiazide and propranolol for blood pressure control. - Encourage patient to continue taking medications as prescribed and monitor blood pressure regularly. - Follow-up with primary care physician for ongoing management. Cannabis Use - Assessment: Patient reports occasional marijuana use through smoking. - Plan: - Encourage patient to discuss the potential impact of cannabis use on mental health and overall well-being with their primary care physician. Financial Stress - Assessment: Patient experienced temporary financial stress due to miscalculation but resolved the issue independently. - Plan: No further intervention needed at this time. Prescriptions: - Brexpiprazole 2 mg daily (3-month supply) - Paroxetine 20 mg daily (3-month supply) Follow-up: - Schedule a follow-up appointment in 3 months to reassess mood, anxiety, and medication effectiveness. - Encourage patient to maintain regular appointments with their primary care physician for ongoing management of blood pressure and hypokalemia. Pharmacy: - Prescriptions to be sent to [facility] in [place]. 08/18/2024 Generalized anxiety disorder (ICD-10 - F41.1) Depression and Anxiety - Assessment: Patient reports stable mood and no depressive episodes in the last 3 months. Depression score: 0-1 (no depression). Anxiety score: 1 (low). - Plan: - Continue current medications: Aripiprazole 2 mg, Paroxetine 20 mg. - Follow-up in 3 months to monitor progress and adjust treatment as needed. - Send progress note to Dr. Hebert. Hypertension - Assessment: Patient reports stable blood pressure. Blood pressure today: 105/70-something. - Plan: - Continue current medication: Hydrochlorothiazide. - Encourage patient to monitor blood pressure regularly and report any significant changes. History of Colon Cancer - Assessment: Patient diagnosed in 2003, in remission since 2010. Scheduled for colonoscopy on the (every 5 years). Treatment included radiation and chemotherapy. - Plan: - Encourage patient to attend scheduled colonoscopy and follow up with oncologist as needed. - Monitor for any signs or symptoms of recurrence during routine visits. Overall Health - Assessment: Patient reports good overall health and no other medical issues. Patient mentions being in good spirits and good mood. - Plan: - Continue to monitor overall health during routine visits. - Encourage patient to maintain a healthy lifestyle and report any new concerns or symptoms. 11/17/2024 Cannabis abuse, uncomplicated (ICD-10 - F12.10) 08/18/2024 Cannabis abuse, uncomplicated (ICD-10 - F12.10) Depression and Anxiety - Assessment: Patient reports stable mood and no depressive episodes in the last 3 months. Depression score: 0-1 (no depression). Anxiety score: 1 (low). - Plan: - Continue current medications: Aripiprazole 2 mg, Paroxetine 20 mg. - Follow-up in 3 months to monitor progress and adjust treatment as needed. - Send progress note to Dr. Hebert. Hypertension - Assessment: Patient reports stable blood pressure. Blood pressure today: 105/70-something. - Plan: - Continue current medication: Hydrochlorothiazide. - Encourage patient to monitor blood pressure regularly and report any significant changes. History of Colon Cancer - Assessment: Patient diagnosed in 2003, in remission since 2010. Scheduled for colonoscopy on the (every 5 years). Treatment included radiation and chemotherapy. - Plan: - Encourage patient to attend scheduled colonoscopy and follow up with oncologist as needed. - Monitor for any signs or symptoms of recurrence during routine visits. Overall Health - Assessment: Patient reports good overall health and no other medical issues. Patient mentions being in good spirits and good mood. - Plan: - Continue to monitor overall health during routine visits. - Encourage patient to maintain a healthy lifestyle and report any new concerns or symptoms. 11/17/2024 Other Depression and Anxiety - Assessment: Patient reports overall improvement in mood and anxiety since the last visit in August. She experienced emotional distress due to her boyfriend's illness, which has since improved. She is currently on aripiprazole 2 mg daily and paroxetine 20 mg daily. No reported side effects from the medications. - Plan: - Continue aripiprazole 2 mg daily and paroxetine 20 mg daily. - Monitor for any changes in mood or anxiety levels. - Schedule a follow-up appointment in 3 months. Weight Gain - Assessment: Patient reports a weight gain of approximately 3-4 pounds during the holidays. She expresses dissatisfaction with her current weight. - Plan: - Encourage the patient to engage in regular physical activity and maintain a balanced diet. - Provide resources for healthy eating and exercise. - Monitor weight changes during follow-up appointments. Sleep and Appetite - Assessment: Patient reports good sleep and no significant changes in appetite. - Plan: - Continue to monitor sleep and appetite during follow-up appointments. Potassium Level - Assessment: Patient mentioned a hospital visit about a month ago due to low potassium levels. - Plan: - Review the patient's medical records to obtain more information about the hospital visit and potassium levels. - Consider ordering a basic metabolic panel to assess current potassium levels if necessary. - Discuss the results and any necessary interventions during the next appointment. Medication Management - Assessment: Patient mentioned an old prescription for oxycodone but is not currently taking it. - Plan: - Review the patient's medication list and update it accordingly. - Ensure that the patient is aware of all current medications and their purposes. - Continue to monitor medication adherence and effectiveness during follow-up appointments. Plan Of Treatment Next Appt Details Provider Name:Sacha Vázquez , 02/09/2025 10:00:00 AM, [address], [address], [place], [address], Insurance Providers Payer Name Payer Address Payer Phone Subscriber Number Group Number Insured Name Patient Relationship to Insured Coverage Start Date Coverage End Date [facility] [address] [place] [address] [id number] ROSAURA TOM Self - patient is the insured Medical (General) History Medical History History ICD Code Problems: Generalized anxiety disorder Nondependent cannabis abuse, episodic Recurrent major depression in full remis jens , Surgical History Surgery Date(Month/Year) Hysterectomy ([id number]) 10/15/2003 Total knee replacement ([id number]) 08/28 Hospitalization History Reason Date(Month/Year) ER visit for hypokalemia, discharged nathanael e from ER 04/2024
[2025-01-26 18:59] LABS: Basophils Percent Auto 0.6 % (0.2-1.2); Eosinophils Absolute Auto 0.1 K/mm3 (0-0.3); Eosinophils Percent Auto 1.1 % (0-4.4); Hemoglobin 12.6 g/dL (12.0-15.0); Immature Granulocyte Absolute 0.02 K/mm3 (0.00-0.031); Immature Granulocyte Percent A 0.3 % (0-0.5); Lymphocytes Absolute Auto 2.53 K/mm3 (0.9-3.2); Lymphocytes Percent Auto 35.4 % (18.3-44.2); Mean Corpuscular HGB Conc 32.3 g/dl (32-36); Mean Corpuscular Hemoglobin 27.8 pg (26-34); Mean Corpuscular Volume 86.1 fl (80-100); Mean Platelet Volume 11.9 fl (7.4-10.4); Monocytes Absolute Auto 0.6 K/mm3 (0.1-0.6); Monocytes Percent Auto 7.7 % (2.6-8.5); Neutrophils Absolute Auto 3.9 K/mm3 (1.3-6.7); Neutrophils Percent Auto 54.9 % (45.5-73.1); Platelet Count Result 350 k/mm3 (150-375); Red Blood Count 4.53 M/mm3 (4.2-5.4); White Blood Count 7.2 K/mm3 (4.5-10.0)
[2025-01-26 19:25] LABS: Alanine Aminotransferase 27 U/L (6-35); Albumin Level 4.3 g/dL (3.5-5.1); Alkaline Phosphatase 162 U/L (38-126); Anion Gap 10 mmol/L (4-12); Aspartate Amino Transferase 50 U/L (14-36); Bilirubin,Total 0.6 mg/dL (0.2-1.3); Blood Urea Nitrogen 15 mg/dL (7-17); Calcium 9.5 mg/dL (8.4-10.2); Carbon Dioxide 31 mmol/L (22-30); Chloride 99 mmol/L (98-107); Cholesterol 145 mg/dL (0-200); Estimated Glomerular Filt Rate > 60; Glucose 108 mg/dL (65-110); HDL Direct 36 mg/dL; Potassium 3.7 mmol/L (3.4-5.0); Sodium 140 mmol/L (137-145); Triglycerides 225 mg/dL (<150)
[2025-01-26 19:35] LABS: LDL Cholesterol Direct 58 mg/dL
[2025-01-26 21:48] LABS: Hemoglobin A1C 6.3 % (<5.7)
== END 2025-01-26 10:19 | disposition home or self-care (01) ==
LOC: ANHGOSHLAB 10:20
PROVIDERS: PCP Family Medicine; Visit Provider Family Medicine
DX: E78.5 Hyperlipidemia, unspecified (principal); I10 Essential (primary) hypertension; F31.9 Bipolar disorder, unspecified; R73.03 Prediabetes; E55.9 Vitamin D deficiency, unspecified; E53.8 Deficiency of other specified B group vitamins
CPT/HCPCS: 36415; 80053; 80061; 82306; 82607; 83036; 84443; 85025

== ENCOUNTER 2025-02-20 18:02 | Emergency (ER) | payer MEDICARE, MEDICAID, SELFPAY ==
--- NOTE | ~2025-02-20 | CT_ITS ---
CLINICAL INDICATION: Carpal injury. COMPARISON: Reference is made to a plain film evaluation of the right hand, performed approximately 9 0 minutes earlier. TECHNIQUE: Computed tomography (CT) of the right hand was performed without intravenous contrast. The dose-length product was 407.35 mGy-cm. FINDINGS/OBSERVATIONS: Redemonstration of an oblique fracture within the mid shaft of the fifth metacarpal, consistent with recent radiograph. Redemonstration of a oblique minimally displaced fracture of the fourth metacarpal, with extension of the fracture line into the articular surface. No additional fractures are appreciated. Soft tissue swelling is noted. IMPRESSION: As above. Reviewed, dictated and finalized at location A. IMPRESSION: As above.
--- NOTE | ~2025-02-20 | XR_ITS ---
HISTORY: R knee injury COMPARISON: 01/19/2025 TECHNIQUE: 4 views of the right knee were performed FINDINGS: A right knee prosthetic is identified, with altered morphology from 01/19/2025. No periprosthetic fracture is appreciated. Irregular lucency within the lower third of the patella, an interval change from prior. IMPRESSION: Irregular lucency within the lower third of the patella, an interval change from prior. No periprosthetic fracture is present. Reviewed, dictated and finalized at location A. IMPRESSION: Irregular lucency within the lower third of the patella, an interv al change from prior. No periprosthetic fracture is present.
--- NOTE | ~2025-02-20 | XR_ITS ---
HISTORY: R elbow injury s/p fall COMPARISON: None TECHNIQUE: 3 views of the right elbow were performed. FINDINGS: No acute fracture is identified. No elevation of the anterior or posterior fat pads are identified to suggest a supracondylar fracture . Overlying soft tissues are unremarkable. Bone mineralization is age-appropriate. IMPRESSION: No acute fracture, as detailed above. Reviewed, dictated and finalized at location A.
--- NOTE | ~2025-02-20 | XR_ITS ---
XR hand RT min 3V Ordering provider: Deidre Turner APRN History: . R hand injury . Comparison: None. FINDINGS: BONES: Fracture of the fourth and fifth metacarpal bones distally. JOINT SPACES: Normal. SOFT TISSUES: Soft tissue swelling over the fifth metacarpal bone. IMPRESSION: Fracture of the fourth and fifth metacarpal bone. Reviewed, dictated and finalized at location A.
--- NOTE | ~2025-02-20 | XR_ITS ---
XR wrist RT min 3V Ordering provider: Deidre Turner APRN History: . R wrist injury . Comparison: None FINDINGS: BONES: Fracture of the distal shaft of the fifth metacarpal bone is noted. Fracture of the distal met aphysis of the fourth metacarpal bone. No definite scaphoid fracture. Cystic changes in the triquetr al bone. JOINT SPACES: Normal. SOFT TISSUES: Soft tissue swelling in the area of the fifth metacarpal bone. IMPRESSION: Fracture of the fourth and fifth metacarpal bones. Reviewed, dictated and finalized at location A.
--- OUTSIDE RECORDS SUMMARY | 2025-02-20 18:04 | XMS_ITS | Patient Health Record ---
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 Name Role Phone Mireya SETH, [facility] Primary Care Provider Unavailable Sacha Vázquez Unavailable [phone] Migration, Provider Unavailable Unavailable Allergies Allergen (clinical drug ingredient) Drug/Non Drug Allergy documented on EMR Reaction Allergy Type Onset Date Status acetaminophen Tylenol Unknown Drug Allergy Act edison Penicillin Unknown Drug Allergy Active Reason For Referral No Information Medications Medication SIG (Take, Route, Frequency, Duration) Notes Start Date End Date Status PARoxetine HCl 20 MG 1 tablet every morning Oral Once a day for 90 days Active ARIPiprazole 2 MG 1 tablet Oral Once a day for 90 days Active oxyCODONE-Acetaminophen 5-32 5 MG TAKE 1-2 TABLETS BY MOUTH EVERY 4 - 6 HOURS NEEDED FOR PAIN Oral for 5 Days Active Propranolol HCl 80 MG TAKE 1 TABLET BY MOUTH EVERY DAY IN THE MORNING Oral for 90 Days Active hydroCHLOROthiazide 25 MG TAKE 1 TABLET BY MOUTH EVERY MORNING Oral for 90 Days Active Atorvastatin Calcium 20 MG TAKE 1 TABLET BY MOUTH EVERY DAY IN THE MORNING Oral for 90 Days Active Spironolactone 100 MG TAKE 1 TABLET BY MOUTH EVERY DAY Oral for 90 Days Active Social History Tobacco Use: Social History Observation Description Date Details (start date - stop date) Never Smoker NA - NA Sex Assigned At : Social History Observation Description Sex Assigned At Female Tobacco Control (Standard) Question Answer Notes Tobacco use: Nonsmoker Problems Problem Type SNOMED Code ICD Code Onset Dates Problem Status W/U Status Risk Notes Problem Cannabis abuse (38252405) Cannabis abuse, uncomplicated (F12.10) 4 Active confirmed Problem Recurrent major depression in full remission (00114143) Major depressive disorder, recurrent, in full remission (F33.42) 4 Active confirmed Problem Generalized anxiety disorder (64220775) Generalized anxiety disorder (F41.1) 4 Active confirmed Problem 71647614 Essential (primary) hypertension (I10) 0 Active confirmed Problem 312355625 Malignant neoplasm of colon, unspecified part of colon (C18.9) 0 Active confirmed Vital Signs Heart Rate 80 /min 02/09/2025 Height-cm 160.02 cm 02/09/2025 Blood pressure diastolic 83 mm Hg 02/09/2025 Weight-kg 87.09 kg 02/09/2025 Height 63.00 in 02/09/2025 Blood pressure systolic 133 mm Hg 02/09/2025 Weight 192 lbs 02/09/2025 BMI 34.01 kg/m2 02/09/2025 Encounters Encounter Location Date Provider Diagnosis [employer] [place] [address] [facility] [address] [place] [address] 05/19/2024 Sacha Kathie Major depressive disorder, recurrent, in full remission F33.42 ; Generalized anxiety disorder F41.1 and Cannabis abuse, uncomplicated F12.10 [employer] [facility] [address] [address] 08/18/2024 Sacha Kathie Major depressive disorder, recurrent, in full remission F33.42 ; Generalized anxiety disorder F41.1 and Cannabis abuse, uncomplicated F12.10 [employer] [facility] [address] [facility] [address] [place] [address] 11/17/2024 Sacha Kathie Major depressive disorder, recurrent, in full remission F33.42 ; Generalized anxiety disorder F41.1 and Cannabis abuse, uncomplicated F12.10 [employer] [facility] [address] [place] [address] 02/09/2025 Sacha Kathie Encounter for screening for depression Z13.31 ; Encounter for screening for cardiovascular disorders Z13.6 ; Major depressive disorder, recurrent, in full remission F33.42 ; Generalized anxiety disorder F41.1 and Cannabis abuse, uncomplicated F12.10 [employer] [facility] [address] [place] [address] 03/01/2024 Provider Migration [facility] [address] [place] [address] 03/02/2024 Provider Migration Assessments Encounter Date Diagnosis (ICD Code) Assessment Notes Treatment Notes Treatment Clinical Notes Section Notes 05/19/2024 Major depressive disorder, recurrent, in full [...] which led to an ER visit at [facility]. Patient received fluids at the ER [...] Pharmacy: - Prescriptions to be sent to [facility] in [place]. 05/19/2024 Generalized anxiety disorder (ICD-10 - F41.1) [...] which led to an ER visit at [facility]. Patient received fluids at the ER [...] Pharmacy: - Prescriptions to be sent to [facility] and [facility] in [place]. 08/18/2024 Major depressive disorder, recurrent, in full [...] since 2010. Scheduled for colonoscopy on the 6th (every 5 years). Treatment included radiation and [...] recurrent, in full remission (ICD-10 - F33.42) 02/09/2025 Encounter for screening for depression (ICD-10 - Z13.31) 02/09/2025 Encounter for screening for cardiovascular disorders (ICD-10 - Z13.6) 11/17/2024 Generalized anxiety disorder (ICD-10 - F41.1) 08/18/2024 Generalized anxiety disorder (ICD-10 - F41.1) [...] since 2010. Scheduled for colonoscopy on the 6th (every 5 years). Treatment included radiation and [...] and report any new concerns or symptoms. 05/19/2024 Cannabis abuse, uncomplicated (ICD-10 - F12.10) [...] which led to an ER visit at [facility]. Patient received fluids at the ER [...] Pharmacy: - Prescriptions to be sent to [facility] and [facility] in [place]. 11/17/2024 Cannabis abuse, uncomplicated (ICD-10 - F12.10) [...] and report any new concerns or symptoms. 02/09/2025 Major depressive disorder, recurrent, in full remission (ICD-10 - F33.42) 02/09/2025 Generalized anxiety disorder (ICD-10 - F41.1) 02/09/2025 Cannabis abuse, uncomplicated (ICD-10 - F12.10) 11/17/2024 Other Depression and Anxiety - Assessment: [...] medication adherence and effectiveness during follow-up appointments. 02/09/2025 Indiana Kaplan, a patient with a history of depression and borderline diabetes, presents for follow-up with recent weight gain and sleep disturbances. Depression Assessment: Patient's depression appears to be in remission. PHQ-9 score is 2, indicating minimal depressive symptoms. Current medication regimen includes Paxil 20 mg daily and Aripiprazole 2 mg daily, which seems to be effective in managing the patient's depression. Plan: - Continue Paxil 20 mg PO daily for depression - Continue Aripiprazole 2 mg PO daily for depression - Follow up in 3 months Recent Weight Gain Assessment: Patient reports gaining approximately 10 pounds recently. No thyroid issues reported. Patient denies exercise and admits to poor dietary choices. Recent blood work, including blood sugar, was reported as fine. Patient has a history of borderline diabetes. Plan: - Recommend initiating regular exercise regimen for weight management - Advise on dietary modifications to address recent weight gain - Monitor weight at follow-up appointments Sleep Disturbances Assessment: Patient reports not sleeping well, experiencing nightmares, and excessive sweating. These symptoms may be related to the patient's mental health condition or could be a side effect of current medications. Plan: - Monitor sleep patterns and nightmares at future appointments - Assess for any correlation between sleep disturbances and current medications at next follow-up Hypertension Assessment: Patient's hypertension is currently managed with hydrochlorothiazi de, spironolactone, and propranolol. A recent episode of elevated blood pressure (200/98) was initially labeled as a TIA but later determined to be a panic attack. Plan: - Continue current antihypertensive medications: hydrochlorothiazi de, spironolactone, and propranolol (doses not specified) - Discontinue aspirin as per primary care physician's recommendation - Monitor blood pressure at future appointments Hyperlipidemia Assessment: Patient is currently on atorvastatin for cholesterol management. No recent lipid panel results discussed. Plan: - Continue atorvastatin for cholesterol management (dose not specified) Disclaimer: This note has been transcribed using speech recognition software and serves as a reflection of the patient's visit. While efforts have been made to ensure accuracy, there may be errors, including cabinet and trim installer inaccuracies and misspellings of medication names. This document should not be considered a verbatim record, and any discrepancies should be verified with the provider. Plan Of Treatment Next Appt Details Provider Name:Sacha Vázquez , 05/11/2025 10:00:00 AM, [address], [place], [address], Insurance Providers Payer Name Payer Address Payer Phone Subscriber Number Group Number Insured Name Patient Relationship to Insured Coverage Start Date Coverage End Date [facility] [address] [place] [phone] [id number] ELIANACARLOS A ParekhNA Self - patient is the insured Medical (General) History Medical History History ICD Code Problems: Generalized anxiety disorder Nondependent cannabis abuse, episodic Recurrent major depression in full remis jens , Surgical History Surgery Date(Month/Year) Hysterectomy (252034885) 10/15/2003 Total knee replacement (971429985) 08/28 Hospitalization History Reason Date(Month/Year) ER visit for hypokalemia, discharged nathanael e from ER 04/2024
--- OUTSIDE RECORDS SUMMARY | 2025-02-20 18:04 | XMS_ITS | Clinical Summary ---
Author Organization [facility] Address [address] [place] [id number] Care Team Providers Care Reptile Keeper Name Role Phone Yeyo Garcia MD Primary Care Provider [phone] Social History Tobacco Use Types Packs/Day Years [...] Screening with HPV 1994 Mammogram Screening 2004 Pneumococcal Vaccine: 50+ Ye ars (1 of 1 - PCV) 2014 Zoster Vaccines (1 of 2) 2014 COVID-19 [...] age to complete this topic Care Teams Reptile Keeper Relationship Specialty Start Date End Date Yeyo Garcia MD [address] [place] [address] [facility] - General 03/24/14
[2025-02-20 18:14] VITALS: BP 146/91; PULSE 64; TEMP 36.7; O2SAT 99
--- NOTE | 2025-02-20 18:29 | ED_ITS ---
HPI - Wound/Laceration General Chief Complaint: Wound/Laceration Stated Complaint: fall Time Seen by Provider: 02/20/25 18:06 History of Present Illness HPI narrative: Patient is a 59-year-old female presents to the ER after a ground level fall. She reports she was taking her dog outside when the dog pulled on her. Patient reports she landed on the ground striking her right elbow, right wrist, and right knee. She also endorses bumping her head on the ground, but has no visible abrasions, loss of consciousness, pain, or headache. Patient reports majority of her wounds were sustained to her right upper extremity. She reports she landed an of bed of rocks. Patient reports her last tetanus shot was approximately 6 months ago. She denies any chest pain, shortness of breath, shoulder injury, snuffbox tenderness, lacerations to her head, visual changes, tenderness with palpation to her facial bones. Related Data Home Medications ?Medication ?Instructions ?Recorded ?Confirmed ?Last Taken ?Type aripiprazole 2 mg tablet (Abilify) 2 mg PO QAM 12/08/19 01/22/25 08/19/24 History cholecalciferol (vitamin D3) 50 100 mcg PO DAILY 08/14/22 01/22/25 08/19/24 History mcg (2,000 unit) capsule [id number] 120 mcg-lutein 2 tablet PO DAILY 08/14/22 01/22/25 08/19/24 History 150 mcg-herb 37.5 mg chewable tablet (Alive Women's 50 Plus Gummy) ascorbic acid (vitamin C) 500 mg 500 mg PO DAILY 01/03/24 01/22/25 08/19/24 History chewable tablet spironolactone 100 mg tablet 100 mg PO QAM 01/03/24 01/22/25 08/19/24 History paroxetine HCl 20 mg tablet (Paxil) 20 mg PO QAM 08/08/24 01/22/25 08/19/24 History atorvastatin 20 mg tablet 20 mg PO DAILY 01/22/25 01/22/25 Unknown History propranolol 80 mg tablet 80 mg PO DAILY 01/22/25 01/22/25 Unknown History Allergies Allergy/AdvReac Type Severity Reaction Status Date / Time Penicillins Allergy Intermediate Hives Verified 01/22/25 15:17 acetaminophen (From Tylenol) AdvReac Mild Nausea and Verified 01/22/25 15:17 Vomiting Review of Systems Review of Systems: All systems reviewed & are unremarkable except as noted in HPI and below PMFSH Past Medical History Medical History Vertigo Prediabetes Acne, unspecified Dyslipidemia Essential hypertension History of rectal cancer Osteoarthritis Sleep apnea in adult Rectal cancer with radiation therapy and chemotherapy Anxiety Endometriosis Bipolar disorder Migraines Surgical History Surgical History History of total left knee replacement (~08/2022) History of total right knee replacement (TKR) (~01/2024) H/O total hysterectomy (2006) Hx of tubal ligation (~2004) Family History Family History Grandparent Family history of premature coronary heart disease Mother Patient's mother is Family history of malignant neoplasm of breast in first degree relative Social History Social History Smoking status: Never smoker Tobacco type: cigarettes Second hand tobacco smoke exposure: No Alcohol intake: former Drinks per week: 5 Substance use: current Substance use type: marijuana Other substance usage details: SMOKES MARIJUANA DAILY Do You Feel Safe in your Home?: Yes Lack of Transportation: No Lack of Food: Never True Current Housing: I Have Housing Concerned About Future Housing: No Difficulty Paying Gas/Electric Bills: No Difficulty Paying for Meds: No Currently Unemployed: No Education: Trade/Vocational Certificate Difficulty w/ Childcare or Family Care: No Living arrangements: alone Occupation/Education: unemployed Additional occupation/education comments: Disability Gender identity (if verbalized by the patient): Female Sexual Orientation (if Verbalized by the Patient): Straight or Heterosexual Spiritual care concerns: No Agree to blood products: Yes Exam Narrative: GENERAL: Well appearing, well-nourished, non-toxic, in no acute distress. HEAD: Normocephalic, atraumatic. NECK: Supple. No adenopathy, no masses. RESPIRATORY: Airway patent, respirations nonlabored. Clear to auscultation bilaterally, no rales, rhonchi, wheezing. CARDIOVASCULAR: Regular rate and rhythm without murmurs, rubs, or gallops. Peripheral pulses 2+ and equal bilaterally. ABDOMINAL: Soft, nontender, nondistended, no hepatosplenomegaly. Normoactive BS. MUSCULOSKELETAL: Moves all extremities. Strength/ROM intact without gross deformities. Mild bruising and swelling to pt's hand, + snuffbox sign R hand, small lacerations to pt's 3rd and 4th PIP joints SKIN: Warm, dry, normal color. No rashes. Abrasions to right hand 3rd and 4th digit PIP, golfball size surface level laceration and swelling to distal portion of patient's right elbow, bleeding controlled NEURO: A&O X3. Speech clear. Cranial nerves II-XII intact. No ataxic movements. PSYCHIATRIC: Appropriate mood and affect. Normal interaction. Following splint application CWMS intact, pt able to move all digits *splint goes up over pt's R elbow, which is longer than provider requested, but splint is sufficient to support pt's extremity until she can be seen by orthopedics Course Vital Signs Vital signs: Vital Signs Temperature 36.7 C 02/20/25 18:14 Pulse Rate 64 02/20/25 18:14 Blood Pressure 146/91 H 02/20/25 18:14 Pulse Oximetry 99 02/20/25 18:14 Temperature 36.7 C 02/20/25 18:14 Pulse Rate 66 02/20/25 21:08 Respiratory Rate 18 02/20/25 21:08 Blood Pressure 94/57 L 02/20/25 21:08 Pulse Oximetry 96 02/20/25 21:08 MDM - Wound/Laceration MDM Narrative Medical decision making narrative: Patient is a 59-year-old female presents to the ER after a ground level fall. She reports she was taking her dog outside when the dog pulled on her. Patient reports she landed on the ground striking her right elbow, right wrist, and right knee. She also endorses bumping her head on the ground, but has no visible abrasions, loss of consciousness, pain, or headache. Patient reports majority of her wounds were sustained to her right upper extremity. She reports she landed an of bed of rocks. Patient reports her last tetanus shot was approximately 6 months ago. She denies any chest pain, shortness of breath, shoulder injury, snuffbox tenderness, lacerations to her head, visual changes, tenderness with palpation to her facial bones. Labs Ordered: None necessary Imaging Ordered: Right hand x-ray, right knee x-ray, right elbow x-ray, right wrist x-ray, right hand CT Medications Ordered: Toradol 60 mg IM, Hickory p.o. Results: Patient's x-ray indicates Fracture of the distal shaft of the fifth metacarpal bone is noted. Fracture of the distal metaphysis of the fourth metacarpal bone. No definite scaphoid fracture. Cystic changes in the triquetral bone. Pt's CT scan indicates Redemonstration of an oblique fracture within the mid shaft of the fifth metacarpal, consistent with recent radiograph. Redemonstration of a oblique minimally displaced fracture of the fourth metacarpal, with extension of the fracture line into the articular surface. No additional fractures are appreciated. Soft tissue swelling is noted. Diagnosis: 4th and 5th metacarpal fractures, right knee injury, right wrist injury Consults: Spoke with orthopedic surgeon, Dr Eastman, who requested a CT scan of patient's right hand. He advised patient's R hand be splinted before discharge and a brace placed on her R leg. Patient Education/Shared MDM: Results of imaging shared with patient. She endorses improvement of symptoms following medication administration. OGL placed to patient's right lower arm for immobilization. CWMS intact after splint placement. A knee immobilizer will be placed on pt's R leg, per orthopedic suggestion, until follow-up with orthopedics. Patient strongly advised to follow-up with orthopedics as soon as possible. She will be discharged home with a prescription for Hickory. Strict return precautions provided. Patient verbalized understanding and is in agreement with plan. Vital signs stable at time of discharge. All questions answered. Differential Diagnosis Differential diagnosis: Likely abrasion, avulsion of skin and other (Hand fracture, wrist fracture, elbow fracture) Imaging Data Attestation: I personally reviewed and interpreted this imaging study as follows: Radiologist's impression: Impressions Knee X-Ray 02/20/25 18:50 IMPRESSION: Irregular lucency within the lower third of the patella, an interval change from prior. No periprosthetic fracture is present. Wrist X-Ray 02/20/25 18:51 IMPRESSION: Fracture of the fourth and fifth metacarpal bones. Hand X-Ray 02/20/25 18:54 IMPRESSION: Fracture of the fourth and fifth metacarpal bone. Elbow X-Ray 02/20/25 18:55 IMPRESSION: No acute fracture, as detailed above. Hand CT 02/20/25 20:09 IMPRESSION: As above. Discharge Plan Discharge Clinical Impression: Fracture, metacarpal shaft, Metacarpal bone fracture, Hematoma of right forearm, Injury of knee, right Patient Disposition: Home Condition: Stable Instructions: Antibiotic Form, Hand Fracture (ED), Splint Care (ED) Additional Instructions: Please return to the ER with any worsening symptoms. Follow-up with orthopedics as soon as possible. Take all medications as prescribed, including regularly scheduled medications. You may use Hickory as needed for pain control. Please do not remove the splint until you see orthopedics. Patient Language: Hungarian Prescriptions: New hydrocodone-acetaminophen 5-325 mg tablet 1 tablet PO Q6H PRN (Reason: pain) Qty: 14 0RF No Action aripiprazole [Abilify] 2 mg tablet 2 mg PO QAM atorvastatin 20 mg tablet 20 mg PO DAILY propranolol 80 mg tablet 80 mg PO DAILY ascorbic acid (vitamin C) 500 mg Tablet,Chewable 500 mg PO DAILY spironolactone 100 mg tablet 100 mg PO QAM paroxetine HCl [Paxil] 20 mg tablet 20 mg PO QAM Alive Women's 50 Plus Gummy 120 mcg-150 mcg -37.5 mg Tablet,Chewable 2 tablet PO DAILY cholecalciferol (vitamin D3) 50 mcg (2,000 unit) capsule 100 mcg PO DAILY hydrochlorothiazide 25 mg tablet 25 mg PO QAM Qty: 90 1RF Rx Instructions: TAKE 1 TABLET BY MOUTH EVERY DAY Follow-up/Referrals: Ruby Gomes MD [Primary Care Provider] - Jayson Eastman MD [Physician] - (orthopedics ) Time of Disposition: 22:14
[2025-02-20] MEDS: KETOROLAC (*BKC) 60 MG/2 ML VIAL IM (18:51)
[2025-02-20 19:17] VITALS: BP 126/73; PULSE 62; RESP 18; O2SAT 98
[2025-02-20] MEDS: HYDROcodone/acetaminophen (*CRX) 5-325 MG TABLET 1 TAB PO ×2 (19:32→22:37)
[2025-02-20 21:08] VITALS: BP 94/57; PULSE 66; RESP 18; O2SAT 96
--- NOTE | 2025-02-20 21:14 | PC.NURSE ---
Sugar tong splint applied by ultrasound technologist.
[2025-02-20 22:34] VITALS: BP 110/66; PULSE 70; RESP 18; O2SAT 97
== END 2025-02-20 22:44 | disposition home or self-care (01) ==
PROVIDERS: Emergency Provider Registered Nurse; PCP Family Medicine
DX: S62.324A Displaced fracture of shaft of fourth metacarpal bone, right hand, initial encounter for closed fracture (principal); S62.326A Displaced fracture of shaft of fifth metacarpal bone, right hand, initial encounter for closed fracture; S89.91XA Unspecified injury of right lower leg, initial encounter; S50.11XA Contusion of right forearm, initial encounter; W18.30XA Fall on same level, unspecified, initial encounter; I10 Essential (primary) hypertension; Z85.048 Personal history of other malignant neoplasm of rectum, rectosigmoid junction, and anus; E78.49 Other hyperlipidemia; F31.9 Bipolar disorder, unspecified; Z96.653 Presence of artificial knee joint, bilateral
CPT/HCPCS: 29125; 73080; 73110; 73130; 73200; 73564; 96372; 99284; A9270; J1885

== ENCOUNTER 2025-02-26 06:34 | Day surgery (SDC) | payer MEDICARE, MEDICAID, SELFPAY ==
[2025-02-24 11:01] VITALS: BMI 32.8
--- NOTE | ~2025-02-26 | XR_ITS ---
EXAMINATION: XR surgery orthopedic DATE: 02/26/2025 11:23 INDICATION: Postreduction V Right fourth and fifth metacarpal fractures TECHNIQUE: 6 fluoroscopic images of the right hand were obtained during procedure performed by Dr. Ab roland. Radiologist was not present for the imaging or procedure. A total of 7 images were recorded . The amount of fluoroscopy time used during this procedure was 2.9 minutes. Total DAP was 10.408 cGy m^2. COMPARISON: 02/20/25 FINDINGS: Again seen are minimally displaced oblique extra articular fractures at the distal diaphysis of the f ifth metacarpal and at the head and neck of the fourth metacarpal. Subsequent images demonstrate perc utaneous pinning of both fractures which remain minimally displaced in near-anatomic alignment. No ot her fractures identified. IMPRESSION: 1. Prostatomegaly utilized during closed reduction and percutaneous pinning of extra articular fractu res of the right fourth and fifth metacarpals. Reviewed, dictated and finalized at location A. IMPRESSION: 1. Prostatomegaly utilized during closed reduction and percutaneous pinning of extra articular fractures of the right fourth and fifth metacarpals.
--- OUTSIDE RECORDS SUMMARY | 2025-02-26 06:48 | XMS_ITS | Patient Health Record ---
Author Organization [facility] As [employer] Address [address] [place] [address] Care Team Providers Care Food Beverage Server Name Role Phone Mireya SETH, Nicholsierra tucsonaiden Primary Care Provider Unavailable Sacha Vázquez Unavailable [phone] Migration, Provider Unavailable Unavailable Allergies Allergen (clinical [...] Status W/U Status Risk Notes Problem Cannabis abuse, uncomplicated (F12.10) 4 Active confirmed Problem Recurrent major depression in full remission (77431770) Major depressive disorder, recurrent, in full remission (F33.42) 4 Active confirmed Problem Generalized anxiety disorder (16319321) Generalized anxiety disorder (F41.1) 4 Active confirmed Problem 63684249 Essential (primary) hypertension (I10) 0 Active confirmed Problem 956848680 Malignant neoplasm of colon, unspecified part of colon (C18.9) 0 Active confirmed Vital Signs Heart Rate 80 /min 02/09/2025 Height-cm 160.02 cm 02/09/2025 Blood pressure diastolic 83 mm Hg 02/09/2025 Weight-kg 87.09 kg 02/09/2025 Height 63.00 in 02/09/2025 Blood pressure systolic 133 mm Hg 02/09/2025 Weight 192 lbs 02/09/2025 BMI 34.01 kg/m2 02/09/2025 Encounters Encounter Location Date Provider Diagnosis [facility] [place] [id number] [facility] [address] [facility] [address] [place] [address] 05/19/2024 Sacha Kathie Major depressive disorder, recurrent, in full remission F33.42 ; Generalized anxiety disorder F41.1 and Cannabis abuse, uncomplicated F12.[address] [facility] [address] [address] 08/18/2024 Sacha Kathie Major depressive disorder, recurrent, in full remission F33.42 ; Generalized anxiety disorder F41.1 and Cannabis abuse, uncomplicated F12.[address] [facility] [address] [address] 11/17/2024 Sacha Kathie Major depressive disorder, recurrent, in full remission F33.42 ; Generalized anxiety disorder F41.1 and Cannabis abuse, uncomplicated F12.10 [facility] [place] [address] [facility] [address] [place] [address] 02/09/2025 Sacha Kathie Encounter for screening for depression Z13.31 ; Encounter for screening for cardiovascular disorders Z13.6 ; Major depressive disorder, recurrent, in full remission F33.42 ; Generalized anxiety disorder F41.1 and Cannabis abuse, uncomplicated F12.10 [facility] [place] [address] [facility] [address] [place] [address] 03/01/2024 Provider Migration [facility] [place] [address] [place] [address] 03/02/2024 Provider Migration Assessments Encounter Date Diagnosis [...] which led to an ER visit at [facility]. Patient received fluids at the ER [...] Pharmacy: - Prescriptions to be sent to [facility] in [place]. 05/19/2024 Generalized anxiety disorder (ICD-10 - F41.1) [...] which led to an ER visit at [facility]. Patient received fluids at the ER [...] Pharmacy: - Prescriptions to be sent to [facility] in [place]. 08/18/2024 Major depressive disorder, recurrent, in full [...] which led to an ER visit at [facility]. Patient received fluids at the ER [...] Pharmacy: - Prescriptions to be sent to [facility] in [place]. 11/17/2024 Cannabis abuse, uncomplicated (ICD-10 - F12.10) [...] ensure accuracy, there may be errors, including housekeeper supervisor inaccuracies and misspellings of medication names. This document should not be considered a verbatim record, and any discrepancies should be verified with the provider. Plan Of Treatment Next Appt Details Provider Name:Sacha Vázquez , 05/11/2025 10:00:00 AM, [address], [place], [address], Insurance Providers Payer Name Payer Address Payer Phone Subscriber Number Group Number Insured Name Patient Relationship to Insured Coverage Start Date Coverage End Date [facility] [address] [place] [phone] [id number] ROSAURA TOM Self - patient is the insured Medical (General) History Medical History History ICD Code Problems: Generalized anxiety disorder Nondependent cannabis abuse, episodic Recurrent major depression in full remis jens , Surgical History Surgery Date(Month/Year) Hysterectomy (749221186) 10/15/2003 Total knee replacement (675504815) 08/28 Hospitalization History Reason Date(Month/Year) ER visit for hypokalemia, discharged nathanael e from ER 04/2024
--- OUTSIDE RECORDS SUMMARY | 2025-02-26 06:48 | XMS_ITS | Clinical Summary ---
Author Organization [facility] Address [address] [place] [address] Care Team Providers Care Para Machine Operator Name Role Phone Yeyo Garcia MD Primary Care Provider [phone] Social History Tobacco Use Types Packs/Day Years [...] age to complete this topic Care Teams Para Machine Operator Relationship Specialty Start Date End Date Yeyo Garcia MD [address] [address] [facility] - General 03/24/14
--- NOTE | 2025-02-26 07:00 | WPDHPUPDATE1 ---
History and Physical Update Update Date/Time: 02/26/25 07:00 Patient seen and examined in pre-operative holding area. No interval change in medical history or symptoms. Patient recalls previous discussion of benefits and alternatives to procedure. Continues to desire to proceed with right small and ring finger metacarpal fracture closed reduction and pin fixation. Reviewed procedure, post-op expectations and risks including but not limited to bleeding, infection, injury to tendon/nerve/vessel, decreased hand function, stiffness, RSD, no change or worsening of symptoms, malunion, nonunion. I discussed the possible use of assistants and their participation in the case. Patient stated understanding and signed the consent form wishing to proceed.
--- NOTE | 2025-02-26 07:00 | W.PM.PROC2 ---
Procedure Note - Detailed Date of Procedure 02/26/25 Pre-op Diagnosis Right Small and Ringer Finger metacarpal Fracture Post-op Diagnosis Same Procedure Performed crpp right small and ring finger metacarpal Surgeon Rashida Dougherty MD It Administrative Assistant luz elena lobo pa-c Anesthesia MAC Description of Procedure INFORMED CONSENT: The patient was seen and examined and marked in the pre-op area.? The patient signed the consent form. PROCEDURE IN DETAIL:The patient taken back to OR on the stretcher in supine position. Time out performed with anesthesia, surgeon and staff agreeing on patient's name site and surgery to be performed SCDs were placed on the lower extremities and inflated. A tourniquet was placed on {right} upper extremity and antibiotics given IV After anesthesia administered sedation I injected {6}cc 1%lido with epi and 0.5% marcaine plain at the operative sites The?{right upper extremity}?was prepped and draped in sterile fashion the??{right upper extremity} was? exsanguinated with Esmarch bandage and tourniquet inflated to 250mmHg The mini C-arm was draped and brought into the field. Multiple views of fluoroscopy were used to evaluate the fractures. I took my attention 1st to the ring finger where closed reduction maneuvers were performed improving the position of the 4th metacarpal fracture and I secured this reduction with two 0.045 K-wires in a retrograde fashion. Next I took my attention to the 5th metacarpal where closed reduction maneuvers were performed and two 0.045 K-wires were placed retrograde fashion across the fracture securing the reduction. Multiple views of fluoroscopy revealed adequate reduction and pin placement of both fractures. There was no scissoring of the digits on range of motion. The pins were trimmed appropriately. betadine soaked alcohol pads placed around pin sites followed by 4x4, karyn, and an ulnar gutter splint secured with an frances bandage after the tourniquet was let down noting the hand was warm and well perfused. The patient was then awaken from anesthesia and transferred to the recovery room in stable condition.? Complications - none EBL- 0cc Disposition - home in stable conditions luz elena lobo pa-c was essential for positioining, reduction, maniopulation, fluoro utilization and dressing placement [facility] Billing Surgery - Charge Forward: Surgery Billing ([id number])
[2025-02-26 07:40] VITALS: BP 112/71; PULSE 65; RESP 16; TEMP 36.9; O2SAT 96
[2025-02-26] MEDS: LACTATED RINGERS 1,000 ML 30 ML IV CONT (08:00)
--- NOTE | 2025-02-26 08:04 | SUR.PREOP ---
0710; DR BOLANOS ORDERED ANCEF 2GM CAMPUS COORDINATOR TO OR
--- NOTE | 2025-02-26 10:05 | WPDANESEPPF ---
Anes - Initial Pre Proc Eval Procedure: Operation Date: 02/26/25 10:45 Proposed Procedures p Closed Reduction Percutaneous Pinning Right Small and Ring Finger Metacarpal - Rashida Douhgerty MD Date/Time: 02/26/25 10:05 Surgeon: Rashida Dougherty MD Pre Op Diagnosis: Right Small and Ringer Finger Fracture Patient Data Age: 59 Gender: F Height: 1.6 m Weight: 84 kg Last Vital Signs Temp 36.9 C 02/26/25 07:40 Pulse 65 02/26/25 07:40 Resp 16 02/26/25 07:40 BP 112/71 02/26/25 07:40 Pulse Ox 96 02/26/25 07:40 O2 Del Method Room Air 02/26/25 07:40 Allergies Allergy/AdvReac Type Severity Reaction Status Date / Time Penicillins Allergy Intermediate Hives Verified 02/26/25 08:20 acetaminophen (From Tylenol) AdvReac Mild Nausea and Verified 02/26/25 08:20 Vomiting Home Medications ?Medication ?Instructions ?Recorded ?Confirmed ?Type aripiprazole 2 mg tablet (Abilify) 2 mg PO QAM 12/08/19 02/26/25 History cholecalciferol (vitamin D3) 50 100 mcg PO DAILY 08/14/22 02/26/25 History mcg (2,000 unit) capsule [id number] 120 mcg-lutein 2 tablet PO DAILY 08/14/22 02/26/25 History 150 mcg-herb 37.5 mg chewable tablet (Alive Women's 50 Plus Gummy) ascorbic acid (vitamin C) 500 mg 500 mg PO DAILY 01/03/24 02/26/25 History chewable tablet spironolactone 100 mg tablet 100 mg PO QAM 01/03/24 02/26/25 History hydrochlorothiazide 25 mg tablet 25 mg PO QAM #90 tabs 10/21/24 02/26/25 Rx atorvastatin 20 mg tablet 20 mg PO DAILY 01/22/25 02/26/25 History propranolol 80 mg tablet 80 mg PO DAILY 01/22/25 02/26/25 History cephalexin 500 mg capsule 500 mg PO Q12H #14 caps 02/26/25 Rx hydrocodone 5 mg-acetaminophen 325 1 tablet PO Q6H PRN pain #8 tabs 05/15/25 Rx mg tablet Patient hx anesthesia problems: none Family hx anesthesia problems: none Results Review: All pre-operative results and documents have been reviewed as part of the pre-operative evaluation. [facility] Past Medical History Medical History Vertigo Prediabetes Acne, unspecified Dyslipidemia Essential hypertension History of rectal cancer Osteoarthritis Sleep apnea in adult Rectal cancer with radiation therapy and chemotherapy Anxiety Endometriosis Bipolar disorder Migraines Surgical History Surgical History History of total left knee replacement (~08/2022) History of total right knee replacement (TKR) (~01/2024) H/O total hysterectomy (2006) Hx of tubal ligation (~2004) Family History Family History Grandparent Family history of premature coronary heart disease Mother Patient's mother is Family history of malignant neoplasm of breast in first degree relative Social History Social History Smoking status: Never smoker Tobacco type: cigarettes Second hand tobacco smoke exposure: Yes Alcohol intake: former Drinks per week: 5 Substance use: current Substance use type: marijuana Other substance usage details: SMOKES MARIJUANA DAILY Do You Feel Safe in your Home?: Yes Lack of Transportation: No Lack of Food: Never True Current Housing: I Have Housing Concerned About Future Housing: No Difficulty Paying Gas/Electric Bills: No Difficulty Paying for Meds: No Currently Unemployed: No Education: Trade/Vocational Certificate Difficulty w/ Childcare or Family Care: No Living arrangements: with family Occupation/Education: unemployed Additional occupation/education comments: Disability Gender identity (if verbalized by the patient): Female Sexual Orientation (if Verbalized by the Patient): Straight or Heterosexual Spiritual care concerns: No Agree to blood products: Yes Anes - Eval Final PreProcedure Day of Procedure 02/26/25 10:05 Patient weight: obese Heart: regular rate and rhythm Lungs: decreased breath sounds Airway: Mallampati scale Neurological: alert and oriented Last oral intake: >/= 8 hours ASA classification: III Emergent: no Anesthetic plan: proceed Anesthesia type and monitoring: general GIVS and standard monitoring Results Review: All pre-operative results and documents have been reviewed as part of the pre-operative evaluation. Informed Consent: The patient's anesthetic plan and its attendant risks and benefits were discussed with the patient/family/POA. Questions were solicited and answers provided to the satisfaction of the patient/family/POA.
[2025-02-26] MEDS: ceFAZolin SODIUM 2 GM/20 ML SW SYRINGE IV PUSH (10:15)
[2025-02-26] MEDS: BUPivacaine HCL 0.5% PF 30 ML VIAL 5 ML INFILTRATE (10:22)
[2025-02-26] MEDS: LIDOCAINE 1% LOCAL INJ 20 ML VIAL 5 ML INFILTRATE (10:22)
[2025-02-26] MEDS: BACITRACIN ZINC OINTMENT 0.9 GRAM PACKET 1 PACKET TOPICAL (11:18)
[2025-02-26 11:24] VITALS: BP 133/71; PULSE 71; RESP 16; TEMP 37.2; O2SAT 96
--- NOTE | 2025-02-26 11:32 | WPDANESPN ---
Anes - Prog Note Post-Op Date/Time: 02/26/25 11:32 Cardiovascular status: normal Respiratory status: normal Airway patency: baseline Mental status: baseline Post-Op hydration status: normal Vital Signs: Last Vital Signs Temp 37.2 C 02/26/25 11:24 Pulse 71 02/26/25 11:24 Resp 16 02/26/25 11:24 BP 133/71 02/26/25 11:24 Pulse Ox 96 02/26/25 11:24 O2 Del Method Room Air 02/26/25 11:24 Pain Score (VAS): 0 Patient Feedback: Patient satisfied with anesthetic care.
[2025-02-26 11:34] VITALS: BP 126/79; PULSE 71; RESP 16; O2SAT 97
[2025-02-26 11:44] VITALS: BP 115/86; PULSE 66; RESP 15; O2SAT 98
[2025-02-26] MEDS: oxyCODONE HCL (*CRX) 5 MG TAB IR PO (11:48)
== END 2025-02-26 12:10 | disposition home or self-care (01) ==
PROVIDERS: PCP Family Medicine; Visit Provider Plastic Surgery
PROC: (CPT 26608; principal; 2025-02-26 10:45)
DX: S62.324A Displaced fracture of shaft of fourth metacarpal bone, right hand, initial encounter for closed fracture (principal); S62.326A Displaced fracture of shaft of fifth metacarpal bone, right hand, initial encounter for closed fracture; W01.0XXA Fall on same level from slipping, tripping and stumbling without subsequent striking against object, initial encounter
CPT/HCPCS: 26608 ×2; 99199

== ENCOUNTER 2025-03-10 11:34 | Outpatient (CLI) | payer MEDICARE, MEDICAID, SELFPAY ==
--- NOTE | ~2025-03-10 | XR_ITS ---
XR hand RT min 3V Ordering provider: Radha Muñiz PA-C History: . S62.304A - Unspecified fracture of fourth metacarpal bone... . Comparison: February 20, 2025 FINDINGS: BONES: Fracture of the fourth and fifth metacarpal bones with K wires are noted. Overlying cast is no huong. Lucency in the triquetral bone is noted. The possibility of fracture cannot be excluded. Follow-up ad vised. JOINT SPACES: Normal. SOFT TISSUES: Normal. IMPRESSION: Healing fracture in the fourth and fifth metacarpal bone with postoperative changes. Lucency in the triquetral bone which may indicate a fracture. Follow-up advised. Reviewed, dictated and finalized at location A. IMPRESSION: Healing fracture in the fourth and fifth metacarpal bone with postoperative mi nges. Lucency in the triquetral bone which may indicate a fracture. Follow-up advised .
== END 2025-03-10 11:35 | disposition home or self-care (01) ==
PROVIDERS: PCP Family Medicine; Visit Provider Physician Assistant Surgical
DX: S62.304D Unspecified fracture of fourth metacarpal bone, right hand, subsequent encounter for fracture with routine healing (principal); X58.XXXD Exposure to other specified factors, subsequent encounter
CPT/HCPCS: 73130

== ENCOUNTER 2025-03-24 09:00 | Outpatient (CLI) | payer MEDICARE, MEDICAID, SELFPAY ==
--- NOTE | ~2025-03-24 | XR_ITS ---
Right Hand Technique: PA, oblique, and lateral views were obtained. Clinical History: Fracture follow-up COMPARISON: 03/10/2025 Findings: Cast again overlies the hand. Stable orthopedic pinning of oblique fractures of the fourth and fifth metacarpals. Fracture alignment is unchanged. Soft tissues are unremarkable. Impression: Essentially stable fractures of the fourth and fifth metacarpals, status post orthopedic pinning. Reviewed, dictated and finalized at location M. Impression: Essentially stable fractures of the fourth and fifth metacarpals, status post o rthopedic pinning.
--- OUTSIDE RECORDS SUMMARY | 2025-03-24 09:23 | XMS_ITS | Patient Health Record ---
Author Organization [facility] As [employer] Address [address] [place] [address] Care Team Providers Care Pretzel Twister Name Role Phone Mireya SETH, [facility] Primary Care Provider Unavailable Sacha Vázquez Unavailable [phone] Allergies Allergen (clinical drug ingredient) Drug/Non Drug [...] W/U Status Risk Notes Problem Cannabis abuse (48220495) Cannabis abuse, uncomplicated (F12.10) 4 Active confirmed Problem Recurrent major depression in full remission (53961818) Major depressive disorder, recurrent, in full remission (F33.42) 4 Active confirmed Problem Generalized anxiety disorder (00168739) Generalized anxiety disorder (F41.1) 4 Active confirmed Problem 06666748 Essential (primary) hypertension (I10) 0 Active confirmed Problem 138084502 Malignant neoplasm of colon, unspecified part of colon (C18.9) 0 Active confirmed Vital Signs Heart Rate 80 /min 02/09/2025 Height-cm 160.02 cm 02/09/2025 Blood pressure diastolic 83 mm Hg 02/09/2025 Weight-kg 87.09 kg 02/09/2025 Height 63.00 in 02/09/2025 Blood pressure systolic 133 mm Hg 02/09/2025 Weight 192 lbs 02/09/2025 BMI 34.01 kg/m2 02/09/2025 Encounters Encounter Location Date Provider Diagnosis [facility] [address] [place] [address] 05/19/2024 Sacha Kathie Major depressive disorder, recurrent, in full remission F33.42 ; Generalized anxiety disorder F41.1 and Cannabis abuse, uncomplicated F12.10 [facility] [address] [address] 08/18/2024 Sacha Kathie Major depressive disorder, recurrent, in full remission F33.42 ; Generalized anxiety disorder F41.1 and Cannabis abuse, uncomplicated F12.10 [facility] [address] [facility] [address] [place] [address] 11/17/2024 Sacha Kathie Major depressive disorder, recurrent, in full remission F33.42 ; Generalized anxiety disorder F41.1 and Cannabis abuse, uncomplicated F12.10 [facility] [address] [place] [address] 02/09/2025 Sacha Kathie Encounter for screen ing for depression Z13.31 ; Encounter for screening for cardiovascular disorders Z13.6 ; Major depressive disorder, recurrent, in full remission F33.42 ; Generalized anxiety disorder F41.1 and Cannabis abuse, uncomplicated F12.10 Assessments Encounter Date Diagnosis (ICD Code) Assessment [...] which led to an ER visit at [facility]. Patient received fluids at the ER and [...] Pharmacy: - Prescriptions to be sent to [facility] in [place]. 05/19/2024 Generalized anxiety disorder (ICD-10 - F41.1) [...] which led to an ER visit at [facility]. Patient received fluids at the ER and [...] Pharmacy: - Prescriptions to be sent to [facility] in [place]. 08/18/2024 Major depressive disorder, recurrent, in full [...] which led to an ER visit at [facility]. Patient received fluids at the ER and [...] Pharmacy: - Prescriptions to be sent to [facility] in [place]. 11/17/2024 Cannabis abuse, uncomplicated (ICD-10 - F12.10) [...] ensure accuracy, there may be errors, including site auditor inaccuracies and misspellings of medication names. This document should not be considered a verbatim record, and any discrepancies should be verified with the provider. Plan Of Treatment Next Appt Details Provider Name:Sacha Vázquez , 05/11/2025 10:00:00 AM, [address], [place], [address], Insurance Providers Payer Name Payer Address Payer Phone Subscriber Number Group Number Insured Name Patient Relationship to Insured Coverage Start Date Coverage End Date [facility] [address] [place] [address] [id number] ELIANATOM Parekh Self - patient is the insured Medical (General) History Medical History History ICD Code Problems: Generalized anxiety disorder Nondependent cannabis abuse, episodic Recurrent major depression in full remis jens , Surgical History Surgery Date(Month/Year) Hysterectomy (596221118) 10/15/2003 Total knee replacement (434903675) 08/28 Hospitalization History Reason Date(Month/Year) ER visit for hypokalemia, discharged nathanael e from ER 04/2024
== END 2025-03-24 09:01 | disposition home or self-care (01) ==
PROVIDERS: PCP Family Medicine; Visit Provider Physician Assistant Surgical
DX: S92.351A Displaced fracture of fifth metatarsal bone, right foot, initial encounter for closed fracture (principal); S92.341A Displaced fracture of fourth metatarsal bone, right foot, initial encounter for closed fracture
CPT/HCPCS: 73130

== ENCOUNTER 2025-04-07 11:30 | Outpatient (CLI) | payer MEDICARE, MEDICAID, SELFPAY ==
--- NOTE | ~2025-04-07 | XR_ITS ---
XR hand RT min 3V Ordering provider: Radha Muñiz PA-C History: . S62.304A - Unspecified fracture of fourth metacarpal bone... . Comparison: March 24, 2025 FINDINGS: BONES: Healing fracture in the fourth and fifth metacarpal bones is noted. Status post removal of the cast and K wires. JOINT SPACES: Narrowing of the proximal and distal interphalangeal joints. SOFT TISSUES: Normal. IMPRESSION: Healing fractures in the fourth and fifth metacarpal bones. Reviewed, dictated and finalized at location A.
== END 2025-04-07 11:31 | disposition home or self-care (01) ==
PROVIDERS: PCP Family Medicine; Visit Provider Physician Assistant Surgical
DX: S62.304D Unspecified fracture of fourth metacarpal bone, right hand, subsequent encounter for fracture with routine healing (principal); X58.XXXD Exposure to other specified factors, subsequent encounter
CPT/HCPCS: 73130

== ENCOUNTER 2025-04-17 16:22 | Emergency (ER) | payer MEDICARE, MEDICAID, SELFPAY ==
--- NOTE | ~2025-04-17 | XR_ITS ---
CHEST RADIOGRAPH, PA AND LATERAL CLINICAL HISTORY: dizziness, NAUSEA, VOMITING X 2-3 DAYS . COMPARISON: 04/14/2024 TECHNIQUE: PA and lateral views of the chest. FINDINGS The cardiomediastinal silhouette is unremarkable. The lungs are clear. IMPRESSION: No focal infiltrate or effusion. Reviewed, dictated and finalized at location A.
--- OUTSIDE RECORDS SUMMARY | 2025-04-17 16:24 | XMS_ITS | Clinical Summary ---
Author Organization [facility] Address [address] [place] [address] Care Team Providers Care Rice Farmworker Name Role Phone Yeyo Garcia MD Primary Care Provider [phone] Social History Tobacco Use Types Packs/Day Years [...] age to complete this topic Care Teams Rice Farmworker Relationship Specialty Start Date End Date Yeyo Garcia MD [address] [place] [address] [facility] - General 03/24/14
--- OUTSIDE RECORDS SUMMARY | 2025-04-17 16:24 | XMS_ITS | Patient Health Record ---
Author Organization [facility] [employer] Address [address] [place] [address] Care Team Providers Care Dispute Specialist Name Role Phone Mireya SETH, [place] Primary Care Provider Unavailable Sacha Vázquez Unavailable [phone] Allergies Allergen (clinical drug ingredient) Drug/Non Drug Allergy documented on EMR Reaction Allergy Type Onset Date Status acetaminophen Tylenol Unknown Drug Allergy Act edison Penicillin Unknown Drug Allergy Active Reason For Referral No Information Medications Medication SIG (Take, Route, Frequency, Duration) Notes Start Date End Date Status PARoxetine HCl 20 MG 1 tablet every morning Oral Once a day; Duration: 90 days Active ARIPiprazole 2 MG 1 tablet Oral Once a day; Duration: 90 days Active oxyCODONE-Acetaminophen 5-32 5 MG TAKE 1-2 TABLETS BY MOUTH EVERY 4 - 6 HOURS NEEDED FOR PAIN Oral; Duration: 5 Days Active Propranolol HCl 80 MG TAKE 1 TABLET BY MOUTH EVERY DAY IN THE MORNING Oral; Duration: 90 Days Active hydroCHLOROthiazide 25 MG TAKE 1 TABLET BY MOUTH EVERY MORNING Oral; Duration: 90 Days Active Atorvastatin Calcium 20 MG TAKE 1 TABLET BY MOUTH EVERY DAY IN THE MORNING Oral; Duration: 90 Days Active Spironolactone 100 MG TAKE 1 TABLET BY MOUTH EVERY DAY Oral; Duration: 90 Days Active Social History Tobacco Use: Social History Observation Description Date Details (start date - stop date) Never Smoker NA - NA Sex Assigned At : Social History Observation Description Sex Assigned At Female Tobacco Control (Standard) Question Answer Notes Tobacco use: Nonsmoker Problems Problem Type SNOMED Code ICD Code Onset Dates Problem Status W/U Status Risk Notes Problem Cannabis abuse (51829445) Cannabis abuse, uncomplicated (F12.10) 4 Active confirmed Problem Recurrent major depression in full remission (87214921) Major depressive disorder, recurrent, in full remission (F33.42) 4 Active confirmed Problem Generalized anxiety disorder (62327206) Generalized anxiety disorder (F41.1) 4 Active confirmed Problem Essential hypertension (74619370) Essential (primary) hypertension (I10) 0 Active confirmed Problem Malignant neoplasm of colon (837134534) Malignant neoplasm of colon, unspecified part of colon (C18.9) 0 Active confirmed Vital Signs Heart Rate 80 /min 02/09/2025 Height-cm 160.02 cm 02/09/2025 Blood pressure diastolic 83 mm Hg 02/09/2025 Weight-kg 87.09 kg 02/09/2025 Height 63.00 in 02/09/2025 Blood pressure systolic 133 mm Hg 02/09/2025 Weight 192 lbs 02/09/2025 BMI 34.01 kg/m2 02/09/2025 Encounters Encounter Location Date Provider Diagnosis [facility] [employer] [address] [address] 05/19/2024 Sacha Kathie Major depressive disorder, recurrent, in full remission F33.42 ; Generalized anxiety disorder F41.1 and Cannabis abuse, uncomplicated F12.10 [employer] [address] [address] 08/18/2024 Sacha Kathie Major depressive disorder, recurrent, in full remission F33.42 ; Generalized anxiety disorder F41.1 and Cannabis abuse, uncomplicated F12.10 [employer] [place] [id number] [facility] [address] [address] 11/17/2024 Sacha Kathie Major depressive disorder, recurrent, in full remission F33.42 ; Generalized anxiety disorder F41.1 and Cannabis abuse, uncomplicated F12.10 [employer] [place] [id number] [facility] [address] [address] 02/09/2025 Sacha Kathie Encounter for screen ing [...] which led to an ER visit at [facility]. Patient received fluids at the ER and [...] Pharmacy: - Prescriptions to be sent to [facility] in [place]. 05/19/2024 Generalized anxiety disorder (ICD-10 - F41.1) [...] which led to an ER visit at [facility]. Patient received fluids at the ER and [...] Pharmacy: - Prescriptions to be sent to [facility] in [place]. 08/18/2024 Major depressive disorder, recurrent, in full [...] which led to an ER visit at [facility]. Patient received fluids at the ER and [...] Pharmacy: - Prescriptions to be sent to [facility] in [place]. 11/17/2024 Cannabis abuse, uncomplicated (ICD-10 - F12.10) [...] ensure accuracy, there may be errors, including marina manager inaccuracies and misspellings of medication names. This document should not be considered a verbatim record, and any discrepancies should be verified with the provider. Plan Of Treatment Next Appt Details Provider Name:Sacha Vázquez , 05/11/2025 10:00:00 AM, [address], [place], [address], Insurance Providers Payer Name Payer Address Payer Phone Subscriber Number Group Number Insured Name Patient Relationship to Insured Coverage Start Date Coverage End Date [facility] [address] [place] [phone] [id number] ELIANAIzabella TOM Self - patient is the insured Medical (General) History Medical History History ICD Code Problems: Generalized anxiety disorder Nondependent cannabis abuse, episodic Recurrent major depression in full remis jens , Surgical History Surgery Date(Month/Year) Hysterectomy (801245820) 10/15/2003 Total knee replacement (059429840) 08/28 Hospitalization History Reason Date(Month/Year) ER visit for hypokalemia, discharged nathanael e from ER 04/2024
[2025-04-17 16:29] VITALS: BP 139/93; PULSE 78; RESP 16; TEMP 36.7; O2SAT 98
--- NOTE | 2025-04-17 17:13 | PC.NURSE ---
Pt given urine cup and asked to give sample. Pt unable at this time.
--- NOTE | 2025-04-17 17:16 | ECG_ITS ---
Test Date: 2025-04-17 18:31:23 Measurements Intervals [place] Rate: 74 P: 39 ID: [id number] QRS: 13 QRSD: 90 T: 32 QT: 398 QTc: 444 Interpretive Statements SINUS RHYTHM Compared to ECG 04/14/2024 21:14:54 no change Electronically Signed On 04-18-2025 13:57:50 CDT by Cole Paul M.D.
--- NOTE | 2025-04-17 17:31 | ED_ITS ---
HPI - Nausea/Vomiting/Diarrhea General Chief complaint: Nausea/Vomiting/Diarrhea Stated complaint: n/v, dizzy, CORRALES Time Seen by Provider: 04/17/25 17:08 Source: patient Mode of arrival: ambulatory Limitations: no limitations History of Present Illness HPI Narrative: This is a 60-year-old female that presents to the emergency department for nausea and vomiting. Ongoing since yesterday. Also reports dizziness, cough, diarrhea. Reports history of vertigo. She did not take any medications prior to arrival. Reports positive sick contacts. Denies fevers. Related Data Home Medications ?Medication ?Instructions ?Recorded ?Confirmed ?Last Taken ?Type aripiprazole 2 mg tablet (Abilify) 2 mg PO QAM 12/08/19 03/02/25 02/25/25 History cholecalciferol (vitamin D3) 50 100 mcg PO DAILY 08/14/22 03/02/25 02/22/25 History mcg (2,000 unit) capsule [id number] 120 mcg-lutein 2 tablet PO DAILY 08/14/22 03/02/25 02/22/25 History 150 mcg-herb 37.5 mg chewable tablet (Alive Women's 50 Plus Gummy) ascorbic acid (vitamin C) 500 mg 500 mg PO DAILY 01/03/24 03/02/25 02/22/25 History chewable tablet spironolactone 100 mg tablet 100 mg PO QAM 01/03/24 03/02/25 02/25/25 History atorvastatin 20 mg tablet 20 mg PO DAILY 01/22/25 03/02/25 02/25/25 History propranolol 80 mg tablet 80 mg PO DAILY 01/22/25 03/02/25 02/26/25 History tramadol 50 mg tablet 50 mg PO Q6H PRN 04/06/25 Unknown History Allergies Allergy/AdvReac Type Severity Reaction Status Date / Time Penicillins Allergy Intermediate Hives Verified 03/24/25 09:38 acetaminophen (From Tylenol) AdvReac Mild Nausea and Verified 03/24/25 09:38 Vomiting Review of Systems 2 Review of Systems: All systems reviewed & are unremarkable except as noted in HPI and below PMFSH Past Medical History Medical History (Reviewed 03/24/25 @ 09:38 by Sonu Moreland [facility]) Vertigo Prediabetes Acne, unspecified Dyslipidemia Essential hypertension History of rectal cancer Osteoarthritis Sleep apnea in adult Rectal cancer with radiation therapy and chemotherapy Anxiety Endometriosis Bipolar disorder Migraines Surgical History Surgical History (Reviewed 03/24/25 @ 09:38 by Sonu Moreland [facility]) History of hand surgery (~02/26/25) ORIF of fracture 4th and 5th metacarpals right hand History of total left knee replacement (~08/2022) History of total right knee replacement (TKR) (~01/2024) H/O total hysterectomy (2006) Hx of tubal ligation (~2004) Family History Family History (Reviewed 03/24/25 @ 09:38 by Sonu Moreland [facility]) Grandparent Family history of premature coronary heart disease Mother Patient's mother is Family history of malignant neoplasm of breast in first degree relative Social History Social History (Reviewed 03/24/25 @ 09:38 by Sonu Moreland [facility]) Smoking status: Never smoker Tobacco type: cigarettes Second hand tobacco smoke exposure: Yes Alcohol intake: former Drinks per week: 5 Substance use: current Substance use type: marijuana Other substance usage details: SMOKES MARIJUANA DAILY Do You Feel Safe in your Home?: Yes Lack of Transportation: No Lack of Food: Never True Current Housing: I Have Housing Concerned About Future Housing: No Difficulty Paying Gas/Electric Bills: No Difficulty Paying for Meds: No Currently Unemployed: No Education: Trade/Vocational Certificate Difficulty w/ Childcare or Family Care: No Living arrangements: with family Occupation/Education: unemployed Additional occupation/education comments: Disability Gender identity (if verbalized by the patient): Female Sexual Orientation (if Verbalized by the Patient): Straight or Heterosexual Spiritual care concerns: No Agree to blood products: Yes Exam 2 Narrative: GENERAL: Well-appearing, well-nourished, and in no acute distress. HEAD: Normocephalic, atraumatic. EYES: PERRLA and EOMI. ENT: Nares clear, no rhinorrhea or epistaxis. Mucous membranes moist. Oropharynx without tonsillar hypertrophy exudate or other lesions. Bilateral TMs pearly hamm non-bulging NECK: Supple. No adenopathy or masses. CHEST: Clear to auscultation. No respiratory distress. No wheezes rales or rhonchi HEART: Regular rate and rhythm. No murmur heard. Normal peripheral pulses. ABDOMEN: Soft, nontender, nondistended, normal active bowel sounds. EXTREMITIES: Normal range of motion. No edema. SKIN: Warm, dry, no rash. NEURO: No focal deficits. Alert and oriented x3. Cranial nerves 2-12 grossly intact PSYCH: Normal mood and affect Course Course Emergency Course: patient updated on workup and agrees with plan of care. Resting comfortably. Tolerating p.o. intake Vital Signs Vital signs: Vital Signs Temperature 98.1 F 04/17/25 16:29 Pulse Rate 78 04/17/25 16:29 Respiratory Rate 16 04/17/25 16:29 Blood Pressure 139/93 H 04/17/25 16:29 Pulse Oximetry 98 04/17/25 16:29 Temperature 98.1 F 04/17/25 16:29 Pulse Rate 78 04/17/25 16:29 Respiratory Rate 16 04/17/25 16:29 Blood Pressure 139/93 H 04/17/25 16:29 Pulse Oximetry 98 04/17/25 16:29 MDM - Nausea/Vomiting/Diarrhea MDM Narrative Medical decision making narrative: Patient presents the emergency department with cold symptoms ongoing since yesterday. Reporting cough, vomiting, diarrhea. She is afebrile and nontoxic appearing. Her vitals are stable. Cbc without leukocytosis. Metabolic panel mild hypokalemia, this was replaced. Magnesium is normal. Lipase is normal. COVID, influenza and RSV screens are negative. Urine with 6-10 white blood cells, patient does not any symptoms. This will be sent for culture. Chest x- ray without acute cardiopulmonary abnormality. patient updated on workup and agrees with plan of care. Resting comfortably. Tolerating p.o. intake. She is to follow up with primary provider. She was given warnings to to the ER Differential Diagnosis Differential diagnosis: Likely food poisoning, gastroenteritis, dehydration and other (covid, flu, RSV, pneumonia, viral syndrome) Lab Data Attestation: I reviewed the patient's lab results. 04/17/25 17:44 04/17/25 17:44 Labs: Lab Results 04/17/25 04/17/25 04/17/25 Range/Units 17:04 17:43 17:44 WBC 8.7 (4.5-10.0) K/mm3 RBC 4.74 (4.2-5.4) M/mm3 Hgb 13.0 (12.0-15.0) g/dL Hct 39.5 (37.0-47.0) % MCV 83.3 (80-100) fl MCH 27.4 (26-34) pg MCHC 32.9 (32-36) g/dl RDW 13.9 (11.5-14.5) % Plt Count 340 (150-375) k/mm3 MPV 10.9 H (7.4-10.4) fl Immature Gran % (Auto) 0.2 (0-0.5) % Neut % (Auto) 67.3 (45.5-73.1) % Lymph % (Auto) 22.0 (18.3-44.2) % [place] % (Auto) 9.5 H (2.6-8.5) % Eos % (Auto) 0.5 (0-4.4) % Baso % (Auto) 0.5 (0.2-1.2) % Lymph # (Auto) 1.90 (0.9-3.2) K/mm3 [place] # (Auto) 0.8 H (0.1-0.6) K/mm3 Eos # (Auto) 0.0 (0-0.3) K/mm3 Baso # (Auto) 0.0 (0.0-0.1) K/mm3 Abs Immat Gran (auto) 0.02 (0.00-0.031) K/mm3 Absolute Neuts (auto) 5.8 (1.3-6.7) K/mm3 Absolute Nucleated RBC 0.000 (0.0-0.012) K/mm3 Nucleated RBC % 0.0 (0.0-0.2) % Sodium 138 (137-145) mmol/L Potassium 3.3 L (3.4-5.0) mmol/L Chloride 98 (98-107) mmol/L Carbon Dioxide 27 (22-30) mmol/L Anion Gap 13 H (4-12) mmol/L BUN 15 (7-17) mg/dL Creatinine 0.89 (0.7-1.0) mg/dL Estim Creat Clear Calc 60 ml/min Estimated GFR > 60 (59 - ) Glucose 113 H (65-110) mg/dL Calcium 9.4 (8.4-10.2) mg/dL Magnesium 1.8 (1.6-2.3) mg/dL Total Bilirubin 0.5 (0.2-1.3) mg/dL AST 45 H (14-36) U/L ALT 33 (6-35) U/L Alkaline Phosphatase 166 H (38-126) U/L Total Protein 8.0 (6.3-8.2) g/dL Albumin 4.4 (3.5-5.1) g/dL Lipase 82 (23-300) U/L Urine Color (Yellow) Urine Appearance (Clear) Urine pH (5.0-9.0) Ur Specific [place] (1.001-1.035) Urine Protein (Negative) mg/dL Urine Glucose (UA) (Negative) mg/dL Urine Ketones (Negative) mg/dL Ur Blood (Man) (Negative) Urine Nitrate (Negative) Urine Bilirubin (Negative) Urine Urobilinogen (<2.0) mg/dL Leukocyte Esterase Rfl (Negative) MARCY/UL Urine RBC (0-2) /hpf Urine WBC (0-3) /hpf Ur Squamous Epith Cells (Few) /hpf Urine Bacteria /hpf Urine Casts Influenza A (RT-PCR) Negative (Negative) Influenza B (RT-PCR) Negative (Negative) RSV (RT-PCR) Negative (Negative) SARS-CoV-2 RNA (RT-PCR) Negative (Negative) 04/17/25 Range/Units 19:20 WBC (4.5-10.0) K/mm3 RBC (4.2-5.4) M/mm3 Hgb (12.0-15.0) g/dL Hct (37.0-47.0) % MCV (80-100) fl MCH (26-34) pg MCHC (32-36) g/dl RDW (11.5-14.5) % Plt Count (150-375) k/mm3 MPV (7.4-10.4) fl Immature Gran % (Auto) (0-0.5) % Neut % (Auto) (45.5-73.1) % Lymph % (Auto) (18.3-44.2) % [place] % (Auto) (2.6-8.5) % Eos % (Auto) (0-4.4) % Baso % (Auto) (0.2-1.2) % Lymph # (Auto) (0.9-3.2) K/mm3 [place] # (Auto) (0.1-0.6) K/mm3 Eos # (Auto) (0-0.3) K/mm3 Baso # (Auto) (0.0-0.1) K/mm3 Abs Immat Gran (auto) (0.00-0.031) K/mm3 Absolute Neuts (auto) (1.3-6.7) K/mm3 Absolute Nucleated RBC (0.0-0.012) K/mm3 Nucleated RBC % (0.0-0.2) % Sodium (137-145) mmol/L Potassium (3.4-5.0) mmol/L Chloride (98-107) mmol/L Carbon Dioxide (22-30) mmol/L Anion Gap (4-12) mmol/L BUN (7-17) mg/dL Creatinine (0.7-1.0) mg/dL Estim Creat Clear Calc ml/min Estimated GFR (59 - ) Glucose (65-110) mg/dL Calcium (8.4-10.2) mg/dL Magnesium (1.6-2.3) mg/dL Total Bilirubin (0.2-1.3) mg/dL AST (14-36) U/L ALT (6-35) U/L Alkaline Phosphatase (38-126) U/L Total Protein (6.3-8.2) g/dL Albumin (3.5-5.1) g/dL Lipase (23-300) U/L Urine Color Yellow (Yellow) Urine Appearance Clear (Clear) Urine pH 6.5 (5.0-9.0) Ur Specific [place] 1.009 (1.001-1.035) Urine Protein Negative (Negative) mg/dL Urine Glucose (UA) Negative (Negative) mg/dL Urine Ketones Negative (Negative) mg/dL Ur Blood (Man) Negative (Negative) Urine Nitrate Negative (Negative) Urine Bilirubin Negative (Negative) Urine Urobilinogen 1.0 (<2.0) mg/dL Leukocyte Esterase Rfl 2+ H (Negative) MARCY/UL Urine RBC 0-2 (0-2) /hpf Urine WBC 6-10 H (0-3) /hpf Ur Squamous Epith Cells None seen (Few) /hpf Urine Bacteria None seen /hpf Urine Casts 0-2 Influenza A (RT-PCR) (Negative) Influenza B (RT-PCR) (Negative) RSV (RT-PCR) (Negative) SARS-CoV-2 RNA (RT-PCR) (Negative) Imaging Data Radiologist's impression: ITS Impressions Chest X-Ray 04/17/25 17:29 IMPRESSION: No focal infiltrate or effusion. ECG Data EKG #1: ECG completion date: 04/17/25 EKG Interpretation: normal rate, sinus rhythm, no ST changes and normal QT Critical Care Time Critical Care Time Critical Care Time: No Discharge Plan Discharge Clinical Impression: Acute viral syndrome, Hypokalemia Patient Disposition: Home Condition: Improved Instructions: Hypokalemia (ED), Acute Nausea and Vomiting (ED), Viral Syndrome (ED) Additional Instructions: Return to the emergency department if you experience fever, chest pain, shortness of breath, abdominal pain with nausea and vomiting, weakness, numbness, or any other symptoms that are concerning to you. Rest. Remain well hydrated. Small, frequent meals. Dane diet. Meclizine as needed for dizziness. Ondansetron as needed for nausea Follow up with primary care doctor Patient Language: Tamazight Prescriptions: New ondansetron 4 mg tablet,disintegrating 4 mg PO Q8H PRN (Reason: nausea and vomiting) Qty: 14 0RF ketorolac 10 mg tablet 10 mg PO Q8H PRN (Reason: pain) Qty: 10 0RF Rx Instructions: maximum total duration of 5 days from all oral, intranasal, or parenteral formulations No Action aripiprazole [Abilify] 2 mg tablet 2 mg PO QAM atorvastatin 20 mg tablet 20 mg PO DAILY propranolol 80 mg tablet 80 mg PO DAILY ascorbic acid (vitamin C) 500 mg Tablet,Chewable 500 mg PO DAILY spironolactone 100 mg tablet 100 mg PO QAM Alive Women's 50 Plus Gummy 120 mcg-150 mcg -37.5 mg Tablet,Chewable 2 tablet PO DAILY cholecalciferol (vitamin D3) 50 mcg (2,000 unit) capsule 100 mcg PO DAILY hydrochlorothiazide 25 mg tablet 25 mg PO QAM Qty: 90 1RF Rx Instructions: TAKE 1 TABLET BY MOUTH EVERY DAY tramadol 50 mg tablet 50 mg PO Q6H PRN Rx Instructions: #30 0RF cephalexin 500 mg capsule 500 mg PO Q12H Qty: 14 0RF Follow-up/Referrals: Ruby Gomes MD [Primary Care Provider] -
[2025-04-17 17:46] LABS: Influenza A QL RT-PCR Negative (Negative); Influenza B QL RT-PCR Negative (Negative); RSV RNA, RT-PCR Negative (Negative); SARS-CoV-2 RNA PCR Negative (Negative)
[2025-04-17 17:50] LABS: Hematocrit 39.5 % (37.0-47.0); Hemoglobin 13.0 g/dL (12.0-15.0); Immature Granulocyte Percent A 0.2 % (0-0.5); Lymphocytes Absolute Auto 1.90 K/mm3 (0.9-3.2); Mean Corpuscular HGB Conc 32.9 g/dl (32-36); Mean Corpuscular Hemoglobin 27.4 pg (26-34); Mean Corpuscular Volume 83.3 fl (80-100); Nucleated Red Blood Cells Absolute Auto 0.000 K/mm3 (0.0-0.012); Nucleated Red Blood Cells Perc 0.0 % (0.0-0.2); Platelet Count Result 340 k/mm3 (150-375); Red Blood Count 4.74 M/mm3 (4.2-5.4); White Blood Count 8.7 K/mm3 (4.5-10.0)
[2025-04-17] MEDS: METOCLOPRAMIDE HCL INJ 10 MG/2 ML VIAL IV PUSH (18:02)
[2025-04-17] MEDS: SODIUM CHLORIDE 0.9% IV 1,000 ML 999 ML IV CONT (18:03)
[2025-04-17] MEDS: MECLIZINE HCL 25 MG TABLET PO (18:03)
--- OUTSIDE RECORDS SUMMARY | 2025-04-17 18:07 | XMS_ITS | Clinical Summary ---
Author Organization [facility] Address [address] [place] [address] Care Team Providers Care Funding Coordinator Name Role Phone Yeyo Garcia MD Primary Care Provider [phone] Social History Tobacco Use Types Packs/Day Years [...] age to complete this topic Care Teams Funding Coordinator Relationship Specialty Start Date End Date Yeyo Garcia MD [address] [place] [address] [facility] - General 03/24/14
[2025-04-17 18:08] LABS: Alanine Aminotransferase 33 U/L (6-35); Albumin Level 4.4 g/dL (3.5-5.1); Alkaline Phosphatase 166 U/L (38-126); Anion Gap 13 mmol/L (4-12); Aspartate Amino Transferase 45 U/L (14-36); Bilirubin,Total 0.5 mg/dL (0.2-1.3); Blood Urea Nitrogen 15 mg/dL (7-17); Calcium 9.4 mg/dL (8.4-10.2); Carbon Dioxide 27 mmol/L (22-30); Chloride 98 mmol/L (98-107); Estimated CRCL calculation 60 ml/min; Estimated Glomerular Filt Rate > 60; Glucose 113 mg/dL (65-110); Lipase 82 U/L (23-300); Potassium 3.3 mmol/L (3.4-5.0); Sodium 138 mmol/L (137-145); Total Protein 8.0 g/dL (6.3-8.2)
[2025-04-17 18:29] LABS: Magnesium 1.8 mg/dL (1.6-2.3)
--- NOTE | 2025-04-17 18:33 | PC.NURSE ---
Asked pt multiple times to give urine sample and she states she is still unable to at this time.
[2025-04-17] MEDS: POTASSIUM CHLORIDE 20 MEQ PACKET (FOR LIQUID) 40 MEQ PO (18:57)
[2025-04-17 19:32] LABS: Add Urine Microscopic? YES; Appearance Urine Clear (Clear); Glucose Urine UA Negative (Negative); Leukocyte Esterase Ur 2+ LEU/UL (Negative); Nitrate Urine Negative (Negative); Non Pathogenic Casts 0-2; Specific Grav Ur 1.009 (1.001-1.035)
[2025-04-17] MEDS: ONDANSETRON INJ 4 MG/2 ML VIAL IV PUSH (19:39)
[2025-04-17] MEDS: KETOROLAC 15 MG/ML VIAL (*BKC) IV PUSH (19:39)
[2025-04-17] MEDS: LACTATED RINGERS 1,000 ML 999 ML IV CONT (20:16)
== END 2025-04-17 21:33 | disposition home or self-care (01) ==
PROVIDERS: Emergency Medicine; Emergency Provider Physician Assistant; PCP Family Medicine
DX: B34.9 Viral infection, unspecified (principal); E87.6 Hypokalemia; R82.90 Unspecified abnormal findings in urine; Z85.048 Personal history of other malignant neoplasm of rectum, rectosigmoid junction, and anus; I10 Essential (primary) hypertension; F31.9 Bipolar disorder, unspecified; E78.49 Other hyperlipidemia; Z20.822 Contact with and (suspected) exposure to COVID-19
CPT/HCPCS: 36415; 71046; 80053; 81001; 83690; 83735; 85025; 87086; 87637; 93005; 96361; 96374; 96375; 99284; A9270; J1200; J1885; J2405; J2765; J7030; J7120

== ENCOUNTER 2025-05-07 14:15 | Outpatient (RCR) | payer MEDICARE, MEDICAID, SELFPAY ==
--- NOTE | 2025-04-09 10:20 | OTOPEVAL1 ---
Assessment and note entered by Riccardo Dobbs, ANTONIO/Jackie, CHT OT Evaluation Information 04/09/25 Assessment Status Evaluation Diagnosis S62.304A Unspecified fx of 4th metacarpal bone, right hand ICD-10 Condition Codes (OT) Joint stiffness of right hand M25.641,Pain in right hand M79.641 Subjective Information Patient fell and fractured her right 4th and 5th metacarpals s/p CRPP and pin removal 04/07/25. She is reporting a constant 7/10 pain in the right hand. She is left handed. She reports very limited functional use of her right hand. Reported Pain Level Pain Score 7: Self Report Assessment OT Clinical Summary Patient referred to OT following right IV and V metacarpal fractures s/p CRPP and pin removal. She presents with residual stiffness, swelling, pain and weakness that limits return of functional use. Issued active ROM HEP this date and discussed incorporating her right hand into light ADLs. Continued skilled OT indicated for use of modalities, manual therapy, HEP progression, and therapeutic exercise/activities to facilitate optimal functional right hand use for ADLs. Plan of Care Interventions Therapeutic Exercise,Manual Therapy,Neuro Re- education,Therapeutic Activities,Hot Pack/Cold Pack,Paraffin OT Services Indicated Yes Treatment Frequency and 2x/week for 8 visits Duration These treatments will address the objective and functional deficits as defined above. The patient will be advanced safely and appropriately in order for the patient to progress towards his/her prior level of function. Additional exercises will be introduced and as well as a comprehensive home exercise program upon discharge, if needed, ?to ensure carryover of functional gains achieved in the clinic. This treatment plan has been reviewed and agreement upon by the patient.
--- NOTE | 2025-04-09 10:21 | OPREHPOC ---
Outpatient Therapy Plan of Care This is a Multidisciplinary Plan of Care that may contain components documented by all disciplines (PT, OT, and ST.) OT Problem 1 OT Problem #1 Knowledge Deficit OT Goal 1 Goal / Goal Update 1. Patient to be independent with instructed materials. Target Visit 8 OT Problem 2 OT Problem #2 Pain OT Goal 1 Goal / Goal Update 1. Patient to report reduced (R) hand pain during ADLs to 2/10 or less. Target Visit 8 OT Problem 3 OT Problem #3 Impaired Range of Motion OT Goal 1 Goal / Goal Update Patient to increase (R) hand active ROM for functional kennel worker for ADLs as measured by: 1. progressing to <2 cm gap with a hook fist 2. progressing to 0 cm gap with a full fist 3. progressing to 0 degree extension lag at the MCP joints Target Visit 8 OT Problem 4 OT Problem #4 Impaired Strength OT Goal 1 Goal / Goal Update 1. Patient to be able to progress to yellow putty for (R) hand kennel worker strengthening x5 minutes without pain. Target Visit 8
--- NOTE | 2025-05-07 14:57 | OTOPDC ---
Assessment and note entered by Riccardo Dobbs, OTR/L, NAYA OT D/C Note 05/07/25 Assessment Status Discharge Diagnosis S62.304A Unspecified fx of 4th metacarpal bone, right hand ICD-10 Condition Codes (OT) Joint stiffness of right hand M25.641,Pain in right hand M79.641 Subjective Information Patient reports no longer experiencing pain, compared to a constant 7/10 at the start of care. She reports she is able to use her right hand to open medications and juice bottles. She is back to doing the dishes. She reports feeling weak, but that she is functioning well and notices that her strength is improving. She notices that she continues to be unable to lay her hand completely flat on a table, but she is making progress. ROM: (R) wrist active ROM is WNL (R) hand composite fist is WNL (R) hand hook fist: - 0 cm gap with index - 1 cm gap with middle - 1 cm gap with ring - 0 cm gap with small Extensor lag, PIP joint: - (R) ring finger -15 deg. - (R) small finger -15 deg. City Controller strength: (R) hand 25 lbs. (L) hand 44 lbs. Reported Pain Level Pain Score 0: Self Report Assessment OT Clinical Summary Patient referred to OT following right IV and V metacarpal fractures s/p CRPP and pin removal. She is making excellent progress with functional ROM and strength. She is no longer experiencing pain with ADLs. She is able to make a functional fist and has progressed to only 15 degree extensor lag at the PIP joints of digits IV and V. Reviewed HEP today. Patient is currently independent with instructed materials and reports she is going to complete the HEP on her own. D/C at this time with therapy goals met. Plan of Care OT Services Indicated No
== END 2025-05-08 09:28 | disposition home or self-care (01) ==
LOC: ANHOT 14:15
PROVIDERS: PCP Family Medicine; Visit Provider Physician Assistant Surgical
DX: S62.304A Unspecified fracture of fourth metacarpal bone, right hand, initial encounter for closed fracture (principal); M25.641 Stiffness of right hand, not elsewhere classified; M79.641 Pain in right hand
CPT/HCPCS: 97018; 97110; 97140; 97165

== ENCOUNTER 2025-07-02 15:51 | Outpatient (CLI) | payer MEDICARE, MEDICAID, SELFPAY ==
--- NOTE | ~2025-07-02 | MM_ITS ---
EXAMINATION: MM screening radha BI w sarah HISTORY: Screening TECHNIQUE: Craniocaudal and mediolateral oblique 3-D tomosynthesis images were obtained and synthetic 2-D images were generated. CAD analysis was submitted and interpreted. COMPARISON: Comparison to multiple prior studies sequentially, with oldest reviewed study dated , 02/11/2018 BREAST PARENCHYMAL COMPOSITION: There are scattered areas of fibroglandular density. FINDINGS: There is no evidence of suspicious mass, calcification, or architectural distortion to suggest malignancy in either breast. IMPRESSION: 1. No mammographic evidence of malignancy. 2. Recommend routine screening mammography in one year. BI-RADS Category 1: Negative Reviewed, dictated and finalized at location B.
--- OUTSIDE RECORDS SUMMARY | 2025-07-02 15:53 | XMS_ITS | Clinical Summary ---
Author Organization [facility] Address [address] [place] [address] Care Team Providers Care Entertainment Production Professional Name Role Phone Yeyo Garcia MD Primary Care Provider [phone] Social History Tobacco Use Types Packs/Day Years [...] Vaccines (1 of 2) 2014 COVID-19 Vaccine ( - 2023-2 5 season) 2025 RSV Immunization or 60+ Years (1 - [...] age to complete this topic Care Teams Entertainment Production Professional Relationship Specialty Start Date End Date Yeyo Garcia MD [address] [place] [address] [facility] - General 03/24/14
== END 2025-07-02 15:52 | disposition home or self-care (01) ==
LOC: ANHFOHIMG 15:51
PROVIDERS: PCP Family Medicine; Visit Provider Family Medicine
DX: Z12.31 Encounter for screening mammogram for malignant neoplasm of breast (principal)
CPT/HCPCS: 77063; 77067

== ENCOUNTER 2025-07-27 15:46 | Outpatient (CLI) | payer MEDICARE, MEDICAID, SELFPAY ==
--- OUTSIDE RECORDS SUMMARY | 2025-07-27 16:09 | XMS_ITS | Clinical Summary ---
Author Organization [facility] Address [address] [place] [address] Care Team Providers Care Calender Inspector Name Role Phone Yeyo Garcia MD Primary Care Provider Social History Tobacco Use Types Packs/Day Years [...] Vaccine ( - 2023-2 5 season) 2025 Influenza Adult (#1) 2025 RSV Immunization or 60+ Years (1 [...] age to complete this topic Care Teams Calender Inspector Relationship Specialty Start Date End Date Yeyo Garcia MD [address] [place] [address] [facility] - General 03/24/14
[2025-07-27 19:29] LABS: Alanine Aminotransferase 26 U/L (6-35); Albumin Level 4.5 g/dL (3.5-5.1); Alkaline Phosphatase 157 U/L (38-126); Anion Gap 9 mmol/L (4-12); Aspartate Amino Transferase 33 U/L (14-36); Bilirubin,Total 0.5 mg/dL (0.2-1.3); Blood Urea Nitrogen 15 mg/dL (7-17); Calcium 9.5 mg/dL (8.4-10.2); Carbon Dioxide 31 mmol/L (22-30); Chloride 94 mmol/L (98-107); Estimated Glomerular Filt Rate > 60; Glucose 98 mg/dL (65-110); Potassium 3.7 mmol/L (3.4-5.0); Sodium 134 mmol/L (137-145); Total Protein 8.0 g/dL (6.3-8.2)
[2025-07-27 20:09] LABS: Hemoglobin A1C 5.9 % (<5.7)
== END 2025-07-27 15:47 | disposition home or self-care (01) ==
LOC: ANHGOSHLAB 15:47
PROVIDERS: PCP Family Medicine; Visit Provider Family Medicine
DX: R73.03 Prediabetes (principal); I10 Essential (primary) hypertension
CPT/HCPCS: 36415; 80053; 83036